=== PATIENT | female | born 1945 | race Caucasian/White ===

== ENCOUNTER 2024-11-07 10:27 | Emergency (ER) | payer MEDICARE, OTHER, SELFPAY ==
--- OUTSIDE RECORDS SUMMARY | 2024-11-07 10:30 | XMS_ITS | Clinical Summary ---
Author Organization [facility] Address [address] [place] [id number] Care Team Providers Care Wire Twister Name Role Phone Berenice Garrison CNM Unavailable [phone] No, Physician Primary Care Provider [phone] Allergies Active Allergy Reactions Criticality Noted Date Comments Amitriptyline Dizziness Medium Atorvastatin Muscle pain Medium 09/13/2018 Carvedilol Wheezing Medium Reaction: Asthma, Dextromethorphan Swelling Medium 12/12/2018 Ethanol (Ethyl Alcohol) Swelling Medium 12/12/2018 Fenofibrate Muscle pain Medium 04/05/2015 Nabumetone Shortness of breath High 09/13/2018 Nitroglycerin Swelling Medium Rosuvastatin Muscle pain Medium 09/13/2018 Medications Lactobacillus acidophilus (PROBIOTIC ORAL) Take by mouth Active ergocalciferol (VITAMIN D) 50,000 unit capsule Take 1 capsule by mouth once a week 1 11/29/2018 Active vit C,Q-Xk-xkvud-lut ein-zeaxan 250-90-40-1 mg capsule Take by mouth Active ezetimibe (ZETIA) 10 mg tablet Take 1 tablet (10 mg total) by mouth daily 90 tablet 06/17/2021 Active lisinopriL (PRINIVIL,ZESTRI L) 10 mg tablet Take 1 tablet (10 mg total) by mouth daily 90 tablet 06/17/2021 Active metoprolol XL (TOPROL-XL) 25 mg extended release tablet Take 1 tablet (25 mg total) by mouth daily 30 tablet 11 08/25/2021 Active rosuvastatin (CRESTOR) 5 mg tablet Take 1 tablet (5 mg total) by mouth daily 30 tablet 11 08/25/2021 Active apixaban (ELIQUIS) 5 mg tablet Take 1 tablet (5 mg total) by mouth 2 (two) times a day 180 tablet 1 08/25/2021 Active Active Problems Problem Noted Date Diagnosed Date Pharyngeal spasm 12/22/2016 Gastroesophageal reflux disease 12/22/2016 Hay fever 12/22/2016 Carotid artery disease 09/09/2016 Paresis 04/13/2016 Bruit 03/10/2016 Obesity 03/10/2016 Pain of right lower extremity 07/20/2015 Swelling of right lower extremity 07/17/2015 Diastolic dysfunction 03/13/2015 Hyperlipidemia 03/12/2015 Hypertriglyceridemia 01/19/2015 Vasovagal symptom 01/17/2015 Heart murmur 01/17/2015 Chest pain 01/15/2015 Shortness of breath at rest 01/15/2015 Encounters Date Type Department Care Team Description 10/21/2024 1:07 PM CDT - 10/21/2024 11:59 PM CDT Hospital Encounter [facility] [address] [address] Screening mammogram, encounter for Discharge Disposition: Discharge to home or self care from Last 3 Months Surgical History Surgery Date Site/Laterality Comments HAND SURGERY Hand Repair - (Added by TW Conv) ROBOTIC ASSISTED HYSTERECTOMY Hysterectomy Robotic-Assisted - (Added by TW Conv) [place] DILATION & CURETTAGE DX&/THER NONOBSTETRIC Dilation And Curettage - (Added by TW Conv) TONSILLECTOMY HYSTERECTOMY 04/23/2007 - 04/22/2008 BREAST BIOPSY Left Medical History Medical History Date Comments Personal history of diseases of skin or subcutaneous tissue History of idiopathic urtica penny - (Added by TW Conv) Hyperlipidemia Atrial fibrillation (HCC) Family History Medical History Relation Name Comments Cancer Brother 1 Family history of cancer - (Added by TW Conv) Lung disease Brother 2 Family history of lung disease - (Added by TW Conv) Cancer Father Family history of cancer - (Added by TW Conv) Coronary artery disease Father Fami ly history of coronary artery disease - (Added by TW Conv) Diabetes Father Family history of diabetes mellitus - (Added by TW Conv) Heart failure Father Family history of heart failure - (Added by TW Conv) Hypertension Father Family history of hypertension - (Added by TW Conv) Lung disease Father Family history of lung disease - (Added by TW Conv) Cancer Mother Family history of cancer - (Added by TW Conv) Diabetes Mother Family history of diabetes mellitus - (Added by TW Conv) Stroke Mother Family history of stroke - (Added by TW Conv) Cancer Other 1 Family history of malignant neoplasm - (Added by TW Conv) Heart disease Other 2 Family history of cardiac disorder - (Added by TW Conv) Rheum arthritis Other 3 Family histo ry of rheumatoid arthritis - (Added by TW Conv) COPD Other 4 Family history of chronic obstructive pulmonary disease - (Added by TW Conv) Diabetes Sister 1 Family history of diabetes mellitus - (Added by TW Conv) Hypertension Sister 2 Family history of hypertension - (Added by TW Conv) Lung disease Sister 3 Family history of lung disease - (Added by TW Conv) Relation Name Status Comments Brother 1 Brother 2 Father Mother Other 1 Other 2 Other 3 Other 4 Sister 1 Sister 2 Sister 3 Social History Tobacco Use Types Packs/Day Years Used Date Smoking Tobacco: Never Smokeless Tobacco: Never Alcohol Use Standard Drinks/Week Comments Not Currently 0 (1 standard drink = 0.6 oz pur e alcohol) Comments No Sex and Gender Information Value Date Recorded Sex Assigned at Not on file Legal Sex Female 4:12 AM PA[employer] Gender Identity Not on file Sexual Orientation Not on file Obstetrics History Para Term AB IAB SAB Ectopic Multiple Livin g Live Births 2 2 2 Date Outcome GA Total Labor Labor/2nd/3rd Weight Sex Type Anes PTL Marie A1 A5 Name Clin Term Term Last Filed Vital Signs Vital Sign Reading Time Taken Comments Blood Pressure 124/72 08/25/2021 1:08 PM CDT Pulse 75 08/25/2021 1:08 PM CDT Temperature 36.4 C (97.5 F) 12/04/2018 11:32 AM CDT Respiratory Rate - - Oxygen Saturation 97% 08/25/2021 1:08 PM CDT Inhaled Oxygen Concentration - - Weight 78 kg (172 lb) 10/21/2024 1:09 PM CDT Height 162.6 cm (5' 4) 10/21/2024 1:09 PM CDT Body Mass Index 29.52 10/21/2024 1:09 PM CDT Plan of Treatment Health Maintenance Due Date Last Done Comments Depression Screening 1945 Fall Risk Assessment 1945 Hepatitis C Screening 1945 Hepatitis B Screening 1965 Zoster Vaccine (1 of 2) 1997 Pneumococcal vaccine 65+ (2 of 2 - PCV) 04/27/2011 04/27/2010 Well Visit 65+ 2012 Osteoporosis Screening-Bone Density Scan 08/31/2023 08/30/2021, 11/11/2015, 04/30/2012 Covid-19 Vaccine (7 - 2023-2 5 season) 2023 04/25/2022, 10/17/2021, 09/21/2021, Additional history exists Influenza Vaccine (#1) 2024 , 01/16/2021, 01/29/2020 DTaP/Tdap/Td Vaccine (4 - Td or Tdap) 12/25/2027 12/24/2017, 12/24/2017, 05/07/2006 Breast Cancer Screening-Mammogram Discontinued 10/21/2024, 07/03/2023, 05/10/2022, Additional history exists Procedures Procedure Name Priority Date/Time Associated Diagnosis Comments SCREENING MAMMOGRAM BILATERAL W SAMUEL Schedule Routine, Read Routine (OP Routine) 10/21/2024 1:28 PM CDT Screening mammogram, encounter for DEXA AXIAL SKELETON BONE DENSITY 1 OR MORE SITES Schedule Routine, Read Routine (OP Routine) 08/30/2021 9:39 AM CDT Encounter for screening for osteoporosis from Last 3 Months or Most Recently Relevant to Health Maintenance Results * Screening Mammogram Bilateral W Samuel (10/21/2024 1:28 PM CDT) Anatomical Region Laterality Modality Breast Bilateral Mammography Impressions 10/21/2024 1:51 PM CDT Bilateral No evidence of malignancy in either breast. OVERALL BI-RADS FINAL ASSESSMENT: 2 - Benign RECOMMENDATION: Recommend bilateral annual screening mammography. Narrative 10/21/2024 1:51 PM CDT EXAMINATION: Screening Mammogram Bilateral W Samuel: 10/21/2024 COMPARISON: Relevent prior studies available at the time of interpretation were reviewed, including the most recent mammogram on: 07/03/2023, 05/10/2022, 01/31/2021, and 11/26/2019. TECHNIQUE: Mammography was performed with 2D and digital breast tomosynthesis (DBT) images. CAD was utilized. BREAST PARENCHYMAL COMPOSITION: There are scattered areas of fibroglandular density. FINDINGS: Multiple small benign appearing masses and benign appearing calcifications in both breasts have not suspiciously changed. There is a biopsy marker clip in the left breast. There is no new suspicious finding in either breast on mammogram. us Self Screening Mammogram IMG MAMMO PROCEDURES Fi nal Result * Dexa Axial Skeleton Bone Density 1 or 2 Site (08/30/2021 9:39 AM CDT) Anatomical Region Laterality Modality Body N/A Mammography 09/01/2021 5:40 AM CDT Narrative 09/01/2021 5:41 AM CDT EXAM DESCRIPTION: DEXA AXIAL SKELETON BONE DENSITY 1 OR MORE SITES REASON FOR STUDY: 76 y/o year old F with given history of screening. Postmenopausal Recorder Helper Gravity Prospecting/Model: Emotive A (S/N [id number]) CLINICAL INFORMATION: Current height: 63.5 inches Maximum height: 65 inches Weight: 172 pounds Risk factors: Cancer, postmenopausal COMPARISON: 11/11/2015, 04/30/2012, 04/27/2010. FINDINGS: AP LUMBAR SPINE L1-L4: Total BMD is 0.760 g/cm2 T-score is -2.6 Dissimilar scan types or analysis methods precludes assessment for calculating a significant change. LEFT HIP: Total BMD is 0.775 g/cm2 T-score is -1.4 Dissimilar scan types or analysis methods precludes assessment for calculating a significant change. Femoral neck BMD is 0.596 g/cm2 T-score is -2.3 IMPRESSION: Based on the lumbar spine bone mineral density (T-score -2.6) the patient has osteoporosis. REFERENCE: Bone mineral density: Normal (T-score above or = -1.0) Low bone mass (T-score between -1.0 and -2.5) replaces the previously used term osteopenia Osteoporosis (T-score = or below -2.5) Medical evaluation for secondary causes of low bone mineral density may be appropriate. FRAX is a World Health Organization validated fracture risk assessment tool that calculates a person's 10 year probability of a major osteoporosis related fracture and hip fracture. According to the National Osteoporosis Foundation guidelines, postmenopausal women and men age 50 or older with low bone mass and a 10 year probability of a major osteoporosis related fracture = or greater than 20% or a 10 year probability of a hip fracture = or greater than 3% should be considered for treatment. For further information, including treatment recommendations, please refer to the 2013 ISCD Official Positions (http://www.iscd.org) and the NOF's Clinician's Guide to Prevention and Treatment of Osteoporosis (http://www.nof.org/professionals/clinical-guidelines) THIS IS AN ELECTRONICALLY VERIFIED FINAL REPORT 09/01/2021 5:41 AM - Electronically signed by Cali Benavides M.D. MF: [email or web address] Report ID: [id number] Reading Location: [place] [address] Procedure Note Cali Benavides MD - 09/01/2021 EXAM DESCRIPTION: DEXA AXIAL SKELETON BONE DENSITY 1 OR MORE SITES REASON FOR STUDY: 76 y/o year old F with given history ofscreening. Postmenopausal Recorder Helper Gravity Prospecting/Model: Hologic Horizon A (S/N [id number]) CLINICAL INFORMATION: Current height: 63.5 inches Maximum height: 65 inches Weight: 172 pounds Risk factors: Cancer, postmenopausal COMPARISON: 11/11/2015, 04/30/2012, 04/27/2010. FINDINGS: AP LUMBAR SPINE L1-L4: Total BMD is 0.760 g/cm2 T-score is -2.6 Dissimilar scan types or analysis methods precludes assessment for calculating a significant change. LEFT HIP: Total BMD is 0.775 g/cm2 T-score is -1.4 Dissimilar scan types or analysis methods precludes assessment forcalculating a significant change. Femoral neck BMD is 0.596 g/cm2 T-score is -2.3 IMPRESSION: Based on the lumbar spine bone mineral density (T-score-2.6) the patient has osteoporosis. REFERENCE: Bone mineral density: Normal (T-score above or = -1.0) Low bone mass (T-score between -1.0 and -2.5) replaces thepreviously used term osteopenia Osteoporosis (T-score = or below -2.5) Medical evaluation for secondary causes of low bone mineral density may be appropriate. FRAX is a World Health Organization validated fracture risk assessmenttool that calculates a person's 10 year probability of a major osteoporosisrelated fracture and hip fracture. According to the National OsteoporosisFoundation guidelines, postmenopausal women and men age 50 or older with low bonemass and a 10 year probability of a major osteoporosis related fracture = or greater than 20% or a 10 year probability of a hip fracture = or greaterthan 3% should be considered for treatment. For further information, including treatment recommendations, please referto the 2013 ISCD Official Positions (http://www.iscd.org) and the NOF's Clinician's Guide to Prevention and Treatment of Osteoporosis (http://www.nof.org/professionals/clinical-guidelines) THIS IS AN ELECTRONICALLY VERIFIED FINAL REPORT 09/01/2021 5:41 AM - Electronically signed by Cali Benavides M.D. MF: [id number] Report ID: [id number] Reading Location: [place] [address] Berenice Acosta CNM IM DXA PROCEDURES F inal Result from Last 3 Months or Most Recently Relevant to Health Maintenance Insurance MEDICARE [facility] MEDICARE [facility] CHOICE PLUS [facility] HMO/PPO Address: [address] [address] [place] [address] MEDICARE [facility] Care Teams Wire Twister Relationship Specialty Start Date End Date No, Physician PCP - General 05/01/22 Berenice Garrison, CNM Inventory Representative Obstetrics and Gynecology 08/24/21
--- OUTSIDE RECORDS SUMMARY | 2024-11-07 10:30 | XMS_ITS | Encounter Summary ---
Author Organization [facility] Address [address] [place] [id number] Care Team Providers Care Assistant Tennis Professional Name Role Phone Gaby Locke MD Primary Care Provider + Reason for Visit * Reason Onset Date Comments Rash 10/30/2024 Encounter Details Date Type Department Care Team (Latest Contact Info) Description 10/30/2024 Amperion Message Enc [facility] Family Medicine - [place] [address] [place] [phone] Gaby Locke MD [address] [place] [phone] Need steroid prescription Social History Tobacco Use Types Packs/Day Years Used Date Smoking Tobacco: Never Passive Smoke Exposure: Never Smokeless Tobacco: Never Comments:na Alcohol Use Standard Drinks/Week Comments Not Currently 0 (1 standard drink = 0.6 oz pur e alcohol) PHQ-2 Answer Date Recorded Patient Health Questionnaire-2 Score 0 05/19/2024 Comments No Sex and Gender Information Value Date Recorded Sex Assigned at Female 10/21/2024 6:40 AM CDT Legal Sex Female 4:05 PM CDT Gender Identity Female 10/29/2024 12:14 PM CDT Sexual Orientation Not on file documented as of this encounter Progress Notes * Gaby Locke MD - 10/30/2024 12:07 PM CDT Please let her know I've sent in prednisone for 5 day burst for her. Thanks! * Renu Kimani Acosta - 10/30/2024 8:12 AM CDT Deepa called this morning checking on this. She's asking if you need to see her or if you can send in a steroid. documented in this encounter Plan of Treatment Upcoming Encounters Date Type Department Care Team (Late st Contact Info) Description 02/09/2025 7:50 AM CDT Office Visit [facility] Family Medicine - [place] [address] [place], [place] [id number] Gaby Locke MD [address] [place] [address] 04/30/2025 3:00 PM [employer] Hospital Encounter [facility] [place] [address] Jamel Mendoza MD [address] [facility] [address] [place] [address] 04/30/2025 3:00 PM [employer] - 04/30/2025 3:30 PM [employer] Surgery [facility] Endo/GI [facility] [place] [address] Jamel Mendoza MD [address] 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
--- OUTSIDE RECORDS SUMMARY | 2024-11-07 10:30 | XMS_ITS | Clinical Summary ---
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 Started at the same time as Valtrex Nabumetone Shortness of Breath High 07/08/2013 Naproxen Unknown 03/31/2019 Nitroglycerin Swelling Medium 01/10/2012 Valacyclovir Rash Medium 11/05/2024 Medication started at the same time as gabapentin. Xipamide Unknown 10/28/2015 Medications Multiple Vitamins-Minerals (PRESERVISION AREDS 2) Cap Active Coenzyme Q10 (CO Q10) 200 MG Cap Take 200 mg by mouth daily. Active Lutein 20 MG Cap Take by mouth daily with breakfast. Active aspirin 81 MG chewable tablet Chew 1 tablet (81 mg total) by mouth daily. Active ibuprofen (MOTRIN) 200 MG tablet Take 1 tablet (200 mg total) by mouth every 6 (six) hours as needed for Pain. Active conjugated estrogens (PREMARIN) 0.625 MG/GM vaginal creamIndications: Atrophic vaginitis Place 0.5 g vaginally 3 (three) times a week. 30 g 3 024 Active ezetimibe (ZETIA) 10 MG tabletIndications :Mixed hyperlipidemia Take 1 tablet (10 mg total) by mouth daily. 90 tablet 3 024 2024 Active metoprolol succinate ER (TOPROL-XL) 50 MG 24 hr tabletIndications :Essential hypertension Take 0.5 tablets (25 mg total) by mouth daily. 45 tablet 3 Active albuterol sulfate HFA 108 (90 Base) MCG/ACT inhalerIndication s:Wheezing Inhale 2 puffs into the lungs see administration instructions. Inhale 2 puffs every 4-6 hours by inhalation route as needed. 18 g 1 Active glipiZIDE XL 5 MG 24 hr tabletIndications :Type 2 diabetes mellitus without complication, without long-term current use of insulin (CMS/HCC HHS/HCC) Take 1 tablet (5 mg total) by mouth daily with breakfast. Do not break or crush tablet 90 tablet 1 025 2024 Active rosuvastatin (CRESTOR) 10 MG tabletIndications :Mixed hyperlipidemia Take 1 tablet (10 mg total) by mouth nightly at bedtime. 90 tablet 3 025 2025 Active omeprazole (PRILOSEC) 20 MG capsuleIndication s:Chao's esophagus with dysplasia Take 1 capsule (20 mg total) by mouth daily. 90 capsule 3 025 2025 Active budesonide-glycop yrrolate-formoter ol (BREZTRI) 160-9-4.8 MCG/ACT inhalerIndication s:Mild intermittent asthma without complication ([facility]) Inhale 2 puffs into the lungs 2 (two) times daily. 10.7 g 3 Active lisinopril (PRINIVIL) 10 MG tablet Take 1 tablet (10 mg total) by mouth daily. Active hydrOXYzine (ATARAX) 25 MG tabletIndications :Pruritic rash Take 1 tablet (25 mg total) by mouth 2 (two) times daily as needed for Itching. 30 tablet Active predniSONE (DELTASONE) 20 MG tabletIndications :Pruritic rash Take 2 tablets (40 mg total) by mouth daily for 5 days. 10 tablet 025 2024 Active azithromycin (ZITHROMAX Z-JAMAL) 250 MG tabletIndications :Bronchitis Take 2 tablets by mouth on day one then 1 daily for four days. 6 tablet 025 2024 Discontinued valACYclovir (VALTREX) 1 g tabletIndications :Herpes zoster without complication Take 1 tablet (1,000 mg total) by mouth 3 (three) times daily for 7 days. 21 tablet 025 2024 Discontinued gabapentin (NEURONTIN) 100 MG capsuleIndication s:Herpes zoster without complication Take 1 capsule (100 mg total) by mouth 3 (three) times daily. 30 capsule 025 2024 Discontinued predniSONE (DELTASONE) 20 MG tabletIndications :Poison heidy Take 2 tablets (40 mg total) by mouth daily for 5 days. 10 tablet 025 2024 Hospital, Clinic, or Other Facility Administered Medication Ordered Dose Route Frequency Start Date End Date Status triamcinolone acetonide (KENALOG-40) injection 40 mgIndications:Pruritic rash 40 mg IM Once 11/05/2024 11/06/19 25 Ended Active Problems Problem Noted Date Diagnosed Date Dysphagia, unspecified type 10/16/2024 Chao's esophagus without dysplasia 10/16/2024 Chao's esophagus with dysplasia 08/07/2024 Overview (08/07/2024): EGD 3 months ago. Recommend [address] Dominguez. Mild intermittent asthma without complication (H HS/HCC) 08/07/2024 Overview (08/07/2024): When she is ill she seems consistently to have wheezing and shortness of breath. No previous PFTs yet to confirm. She has been taking Advair and albuterol when ill. She continues to note some tightness. Assessment & Plan (08/07/2024 8:32 AM CDT): Not controlled today. Will trial Breztri if covered by insurance along with continued albuterol. Acute bacterial sinusitis today. Will treat with Augmentin. Adenomatous polyp of colon 10/18/2023 Peripheral vascular disease 10/18/2023 Overview (02/07/2024): Sees Dr. Brennan. Had an USN. Noninvasive vascular testing was consistent with moderate arterial insufficiency of the left lower extremity. Walking regularly to manage symptoms. Assessment & Plan (02/07/2024 10:15 AM CDT): Stable and managed by Dr. Brennan through lifestyle changes. Paroxysmal atrial fibrillation ([facility]/HCC [facility]/HCC) 10/02/2022 Overview (02/07/2024): Paroxysmal. Occurred in context of 's illness. Rate controlled with metoprolol. Was on eliquis but had severe GI bleeding in 2019 and opted against further anticoagulation. Has historically otherwise been in sinus rhythm. Assessment & Plan (02/07/2024 10:14 AM CDT): Patient has acknowledged risks of anticoagulation and prefers not to take it. She is also aware of stroke risk. Continue rate control with metoprolol. Vitamin D deficiency 10/10/2021 Overview (02/07/2024): Intermittently she will take a supplement but she is not certain how her dosing has been. Assessment & Plan (02/07/2024 10:14 AM CDT): Repeat vitamin D level to confirm whether this is in range. Essential hypertension 09/07/2021 Overview (08/07/2024): Readings at home are much better than in the clinic. She does note some increased stress recently. She does struggle with whitecoat hypertension. Patient takes lisinopril 10 mg daily along with metoprolol extended release 25 mg daily. Assessment & Plan (08/07/2024 8:30 AM CDT): Chronic and controlled. Continue lisinopril and metoprolol. Assessment & Plan (02/07/2024 10:15 AM CDT): Readings at home are controlled. Continue current regimen lisinopril and metoprolol. Diverticulosis of colon 03/08/2021 Atrophic vaginitis 03/30/2019 Overview (10/18/2023): Postmenopausal atrophic vaginitis; Progress: Stable Added By: Mayela Simpson Add to Current Problems: YES ProblemStatus: Current Carotid artery disease 09/09/2016 Overview (02/07/2024): Summary: 1. Mild atherosclerosis in the right and left internal carotid arteries (<50% stenosis). 2. Mild atherosclerosis in the right and left carotid artery bulbs (<50% stenosis). 3. Mild atherosclerosis in the right and left external carotid arteries (<50% stenosis). 4. No evidence of significant atherosclerosis in the right and left common carotid arteries. 5. Normal antegrade flow in the right and left vertebral arteries. Assessment & Plan (02/07/2024 10:15 AM CDT): Mild disease. Stable. Follows with cardiology. Obesity 03/10/2016 Diastolic dysfunction 03/13/2015 Overview (02/07/2024): Sees cardiologyCara. Echo scheduled in 04/2024. Mixed hyperlipidemia 03/12/2015 Overview (08/07/2024): Patient takes ezetimibe along with rosuvastatin. Has struggled with myalgias in the past but the coenzyme every 10 has helped. Assessment & Plan (08/07/2024 8:31 AM CDT): Not controlled. Will trial slightly higher dose rosuvastatin 10 mg daily along with ezetimibe. She will let me know if she experiences myalgias and we will reduce back to 5 mg daily. Repeat lipid panel next visit. Assessment & Plan (02/07/2024 10:15 AM CDT): Ordered CMP and lipid panel to evaluate control. Patient acknowledges readings have typically remained high but prefers to remain on low-dose medication. Heart murmur 01/17/2015 Type 2 diabetes mellitus wit hout complication, without long-term current use of insulin ([facility]) 03/25/2012 Overview (08/07/2024): Last A1c in 01/2024 was 6.7%. Now 7%. She has noted some significant stressors and wondered if her blood sugars to be higher. Patient takes glipizide. Farxiga was too expensive. Eye exam is at [facility] annually. Assessment & Plan (08/07/2024 8:30 AM CDT): Remains controlled but there is a slight increase in A1c. We will increase her glipizide since she had to discontinue Farxiga due to cost. Increase glipizide to 5 mg daily. Foot exam today. Assessment & Plan (02/07/2024 10:13 AM CDT): Controlled. Goal less than 7-8%. Continue glipizide and Farxiga. Repeat A1c in 6 months. Ordered urine microalbumin. Allergic rhinitis due to pollen 03/24/2012 Overview (10/18/2023): Location: None;Severity: Moderate;Progress: Stable;Added By: Karina Heard;Add to Current Problems: NO Other supervisor intermediates (current) drug therapy 2 Resolved Problems Problem Noted Date Diagnosed Date Resolved Date Wrist joint pain 01/10/2012 02/07/2024 Overview (10/18/2023): Location: None;Severity: Moderate;Progress: Stable;Added By: Kristin Mcneil;Add to Current Problems: NO Encounters Date Type Department Care Team Description 11/07/[address] [place] [address] Gaby Allan MD Eye Problem 11/05/2024 3:00 PM CDT Office Visit [facility] [address] [place] [address] Yuki Wilburn NP Rash (Patient presents with rash all over, her body feels on fire, under left eye swelling) 11/05/2024 Travel 10/30/2024 MyChart Message Enc [facility] [address] [facility] [address] [place] [address] Gaby Allan MD Need steroid prescription 10/29/2024 12:20 PM CDT Office Visit [facility] [address] [place] [address] Yuki Wilburn NP Rash (Patient presents with c/o rash on face, burning and itching x yesterday) 10/29/2024 Travel 10/23/2024 9:00 AM CDT Office Visit [facility] [address] [place] [address] Caron Ordaz MD Follow Up (Annual ) 10/23/2024 Travel 10/23/2024 Results Follow-Up [facility], [facility] [address] [place] [address] Mitali Phelps RN USE ECHOCARDIOGRAM 10/21/2024 6:41 AM CDT - 10/21/2024 11:59 PM CDT Hospital Encounter [facility] [place] [address] Caron Ordaz MD Discharge Disposition: Home or Self Care (Routine Discharge) 10/21/2024 Scan [employer] HEALTH INFO SRVCS Scanned, [facility] Mammogram (SCAN) 10/21/2024 Travel 10/16/2024 10:00 AM CDT Office Visit [facility] [address] [facility], [address] [place] [address] Gaby Allan MD Barnes, Lawrence J, NOL[place] Kumar (W/ dysplasia) 10/16/2024 Scan [facility] HEALTH INFO SRVCS Scanned, [facility] 10/16/2024 Orders Only [facility] [address] [facility] [place] [address] Jamel Mendoza MD 10/16/2024 Travel 10/07/2024 Results Follow-Up [facility] [address] [place] [address] Gaby Allan MD XR ABD KUB 10/03/2024 9:50 AM CDT Office Visit [facility] [address] [place] [address] Gaby Allan MD Lump (Patient c/o a knot under her L sided ribcage x 3-4 months. Patient states it has become more bothersome in the last week and it has become more noticeable when she is sitting. ) 10/03/2024 Travel from Last 3 Months Immunizations Immunization Administration Dates Next Due COVID-19 Vaccine (Generic) 09/21/2021 Fluzone High Dose - >Age 65 (Prefilled Syringe) 01/16/2021 Hepatitis A (Generic) 05/07/2006 Hepatitis A (Havrix 1440 El.U) 05/07/2006 Influenza Adult (Generic) 01/18/2021,01/29/2020 MODERNA COVID-19 (12+) MRNA, LNP-S, PF, 100 MCG/ 0.5 ML DOSE 02/20/2021,06/18/2020,05/20/2020 MODERNA COVID-19 (REFUGE WORKER KAMALA MISAEL), MRNA, LNP-S, PF, 50 MCG/ 0.25 ML DOSE 10/17/2021 Pneumococcal (Pneumovax 23) 04/27/2010 Pneumococcal (Prevnar 20) 05/19/2024 Tdap (Generic) 12/24/2017,05/07/2006 Typhoid (Typhim ) 05/07/2006 Typhoid Vi Polysaccharide Va cc 25 Mcg/0.5Ml Im Soln 05/07/2006 Family History Medical History Relation Comments Cancer Brother 1 Cancer Brother 2 Hyperlipidemia Brother 3 Lung Cancer Brother 4 COPD Father Cancer Father Diabetes Father Heart Attack Father Heart Disease Father Hyperlipidemia Father Hypertension Father Stent Cardiac Father Heart Disease Maternal Grandfather Heart Disease Maternal Grandmother Brain Aneurysm Mother Cancer Mother Diabetes Mother Heart Disease Mother Hyperlipidemia Mother Hypertension Mother arrhythmia Mother Cancer Paternal Grandfather Cancer Paternal Grandmother COPD Sister 1 Mitral valve prolapse Sister 1 Stroke Sister 1 Diabetes Sister 2 Hyperlipidemia Sister 2 Hypertension Sister 2 Mitral valve prolapse Sister 2 Diabetes Sister 3 Mitral valve prolapse Sister 3 Stroke Sister 3 Relation Status Comments Brother 1 (Age 46) Brother 2 Alive Brother 3 Alive Brother 4 Alive Father (Age 77) Maternal Grandfather (Age 60) Maternal Grandmother (Age 76) Mother (Age 85) Paternal Grandfather (Age 66) Paternal Grandmother (Age 75) Sister 1 Alive Sister 2 Alive Sister 3 Alive Social History Tobacco Use Types Packs/Day Years Used Date Smoking Tobacco: Never Passive Smoke Exposure: Never Smokeless Tobacco: Never Tobacco Cessation:Counseling Given: No Comments:na Alcohol Use Standard Drinks/Week Comments Not Currently 0 (1 standard drink = 0.6 oz pur e alcohol) PHQ-2 Answer Date Recorded Patient Health Questionnaire-2 Score 0 05/19/2024 Comments No Sex and Gender Information Value Date Recorded Sex Assigned at Female 10/21/2024 6:40 AM CDT Legal Sex Female 4:05 PM CDT Gender Identity Female 10/29/2024 12:14 PM CDT Sexual Orientation Not on file Last Filed Vital Signs Vital Sign Reading Time Taken Comments Blood Pressure 130/70 11/05/2024 3:22 PM CDT Pulse 76 11/05/2024 2:54 PM CDT Temperature 36.7 C (98.1 F) 11/05/2024 2:54 PM CDT Respiratory Rate 20 11/05/2024 2:54 PM CDT Oxygen Saturation 97% 11/05/2024 2:54 PM CDT Inhaled Oxygen Concentration - - Weight 79.4 kg (175 lb) 11/05/2024 2:54 PM CDT Height 162.6 cm (5' 4) 11/05/2024 2:54 PM CDT Body Mass Index 30.04 11/05/2024 2:54 PM CDT Plan of Treatment Upcoming Encounters Date Type Department Care Team (Late st Contact Info) Description 02/09/2025 7:50 AM CDT Office Visit [facility] [place] [address] [place] [address] Gaby Allan MD [address] [place] [address] 04/30/2025 3:00 PM AIRLINE RESERVATION AGENT Hospital Encounter [facility] One Day Services [address] [facility] [place] [address] Jamel Mendoza MD [address] [facility] [address] [place] [address] 04/30/2025 3:00 PM AIRLINE RESERVATION AGENT - 04/30/2025 3:30 PM AIRLINE RESERVATION AGENT Surgery [facility] Endo/GI [facility] [place] [address] Jamel Mendoza MD [address] [facility] [address] [place] [address] EGD 10/26/2025 9:45 AM CDT Office Visit [facility] [place] [address] Caron Ordaz MD [address] [facility] [address] [place] [address] Scheduled Procedures Name Priority Associated Diagnoses Date/Ti me EGD Dysphagia, unspecified type Chao's esophagus without dysplasia 04/30/2025 3:00 PM AIRLINE RESERVATION AGENT Health Maintenance Due Date Last Done Comments Hepatitis C 1965 Zoster Vaccines (1 of 2) 1997 Annual Medicare Wellness Visit 2012 RSV Immunization or 60+ Years (1 - 1-dose 75+ series) 2022 COVID-19 Vaccine ( season) 2023 04/25/2022, 10/17/2021, 09/21/2021, Additional history exists Hemoglobin A1C 02/06/2025 08/07/2024, 01/21, 03/29/2023, Additional history exists Kidney Health Evaluation 03/03/2025 03/03/2024 Lipid Panel 03/03/2025 03/03/2024, 1210/2022, 10/09/2022, Additional history exists Diabetes: Retinopathy Eye Exam 11/04/2025 11/05/2023 EGD-Chao's Surveillance 06/02/2027 06/02/2024 DTaP, Tdap and Td Vaccines (3 - Td or Tdap) 12/25/2027 12/24/2017, 05/07/2006 Dexa Scan (General) Completed 08/30/2021, 08/30/2021, 11/11/2015, Additional history exists PHQ-2 (Physician [place]) Completed 05/19/2024 Pneumococcal Vaccine: 50+ Years Completed 05/19/2024, 04/27/2010 Meningococcal B Vaccine Aged Out No l onger eligible based on patient's age to complete this topic Meningococcal Vaccine Aged Out No herman kelyl eligible based on patient's age to complete this topic RSV Immunizations Under 20 Months Aged Out No longer eligible based on patient's age to complete this topic Goals Goal Patient Goal Type Associated Problems Recent Progress Patient-Stated? Author Autogenera joshua Goal Care Plan Autogenerated Problem No Rosalind Howell, [facility] [place] [facility] [place] Procedures Procedure Name Priority Date/Time Associated Diagnosis Comments USE ECHOCARDIOGRAM Routine 10/21/2024 7: 19 AM CDT Non-rheumatic mitral regurgitation MAMMOGRAM GENERIC (SCAN ORDER) 10/21/2024 XR ABD KUB Routine 10/03/2024 10:22 AM CDT Fullness of abdomen HEMOGLOBIN, GLYCOSYLATED Today 08/07/2024 Type 2 diabetes mellitus without complication, without long-term current use of insulin ([facility]/HCC [facility]/HCC) EGD GENERIC (SCAN ORDER) 06/02/2024 LIPID PANEL Today 03/03/2024 10:35 AM AIRLINE RESERVATION AGENT Mixed hyperlipidemia DIABETIC RETINOPATHY EXAM (NEGATIVE)(SCAN ORDER) Routine 11/05/2023 12:00 AM CDT from Last 3 Months or Most Recently Relevant to Health Maintenance Results * USE ECHOCARDIOGRAM (10/21/2024 7:19 AM CDT) Anatomical Region Laterality Modality Cardiac Echocardiogram 10/21/2024 6:58 AM CDT Narrative 10/22/2024 4:50 PM CDT Echocardiography Report Pat.Name: DEEPA BORREGO.ID: [id number] St.Date: 10/21/2024 Exam Time: 6:58:00 AM Study Type:ECHO WITH CARDIAC DOPPLER COMP Height: 64 in Weight: 178 lb BSA: 1.86 m2 Age: 11 1945,79Y Sex: F BP: 142/76 Sonogrphr: Rocio Sandoval Pat. Stat.:Outpatient CPT - 4: [id number] Reason for Study:Mitral regurgitation Procedures: 2D, M-mode, Doppler, Color Flow, The study quality is technically difficult. Race: W ++++++++++++++++++++++++++++++++++++ SUMMARY: ++++++++++++++++++++++++++++++++++++ The left ventricular size is normal. Estimated left ventricular ejection fraction is 65-70%. Mild concentric left ventricular hypertrophy. Left ventricular diastolic function is not reliably assessed. The right ventricular size is normal. Right ventricular systolic function is normal. The left atrial volume is normal ( less than 34 ml/M2). The right atrial size is normal. Trace mitral regurgitation. A trace of tricuspid regurgitation. ++++++++++++++++++++++++++++++++++++ FINDINGS: ++++++++++++++++++++++++++++++++++++ LV: The left ventricular size is normal. The left ventricular systolic function is normal. Estimated left ventricular ejection fraction is 65-70%. Mild concentric left ventricular hypertrophy. Left ventricular diastolic function is not reliably assessed. RV: The right ventricular size is normal. Right ventricular systolic function is normal. IVS: Intraventricular septum is normal. LA: The left atrial volume is normal ( less than 34 ml/M2). RA: The right atrial size is normal. IAS: Atrial septum is normal. ANISH: Trivial anterior pericardial effusion is noted. AO: Normal aortic root. PA: Estimated right atrial pressure of 3 mmHg. SVn: Inferior vena cava is normal. Inferior vena cava shows >50% collapse with respiration consistent with normal right atrial pressure. AV: No evidence of aortic valve stenosis. No evidence of aortic valve regurgitation. The aortic valve not well visualized. MV: Trace mitral regurgitation. No evidence of mitral stenosis. PV: Pulmonic valve not well visualized. TV: A trace of tricuspid regurgitation. No evidence of tricuspid valve stenosis. ++++++++++++++++++++++++++++++++++++ MEASUREMENTS: ++++++++++++++++++++++++++++++++++++ DOPPLER Pulmonary Veins PVnpkVeld 36 cm/s Pulmonary Vein 0.61 m/s PVnVs/Vd 1.68 AR-wave velocit 0.33 m/s S1-wave velocit 0.57 m/s PVn A Dur 0.087 second TV Forward Flow TV E/A 0.87 Aortic Valve Cardiovascular 1.97 cm Aortic Root Darren 2.97 cm LVOT/AoV (GLOBAL CEO) ( 0.47 Left atrial darren 4.09 cm AV Antegrade Flow Peak Velocity ( 1.64 m/s Mean Velocity ( 1.13 m/s Velocity Time I 38.1 cm AV Antegrade Flow Simplified Bernoulli Gradient pressu 10.8 mmHg Gradient pressu 5.6 mmHg AV Continuity Equation by Velocity Time Integral Aortic Valve Ar 1.68 cm2 AoV Area Index 0.9 Left Ventricle Stroke Volume ( 64 ml Cardiac Output 4.03 liter per minute LV Antegrade Flow Peak Velocity ( 0.77 m/s Mean Velocity ( 0.59 m/s Velocity Time I 21 cm LV Antegrade Flow Simplified Bernoulli Gradient pressu 2.4 mmHg Gradient pressu 1.5 mmHg Mitral Valve Mitral Valve E- 0.233 second Mean Myocardial 6.9 centimeter/second Myocardial Velo 6.7 centimeter/second Ratio of Mitral 12.7 Myocardial Velo 7 centimeter/second Ratio of Mitral 13.1 Mitral Valve E 0.72 Ratio of Mitral 12.6 MV Antegrade Flow Mitral Valve E- 0.88 m/s Mitral Valve A- 1.23 m/s PV Antegrade Flow Peak Velocity ( 1.24 m/s Mean Velocity ( 0.84 m/s Velocity Time I 27.6 cm PV Antegrade Flow Simplified Bernoulli Gradient pressu 6.2 mmHg Gradient pressu 3.1 mmHg Tricuspid Valve Tricuspid Valve 0.47 m/s Tricuspid Valve 0.54 m/s TV Regurgitant Flow MaximumTricuspi 1.49 m/s MaximumTricuspi 8.9 mmHg 2D Left Ventricle LVIDd 4.45 cm (3.6-5.2) LVEDV BP 48.2 ml LV EDV 51.3 ml LVESV BP 13.8 ml LV ESV 9.1 ml LV EF 82.3 % LV EDV 39.6 ml Left Ventricula -16.3 % LV ESV 20.2 ml LV EF 49 % LV EF BP 71.4 % Left Ventricula -10.3 % Left Ventricula -13.3 % Left Atrium Left Atrium Vol 27.6 ml/m2 LA Biplane Left Atrium Vol 51.4 ml LA Single Plane Left Atrium maury 6.33 cm Left Atrium maury 5.69 cm Left Atrium Vol 72.5 ml Left Atrium Vol 33.3 ml LV Teichholz Interventricula 1.22 cm Left Ventricle 2.44 cm Left Ventricle 1.16 cm Heart rate 65 Heart beat per minute Right Atrium RA sys Area 14.5 cm2 Right Ventricle Right Ventricul 2.85 cm RVIDd 4.07 cm MMODE Tricuspid Valve Tricuspid annul 1.97 cm <Electronic Signature> 10/22/2024 04:50 PM Caron Ordaz M.D. Procedure Note Caron Ordaz MD - 10/22/2024 Echocardiography Report Pat.Name: DEEPA BORREGO.ID: [id number] .Date: 10/21/2024 Exam Time: 6:58:00 AM Study Type:ECHO WITH CARDIAC DOPPLER COMP Height: 64 in Weight: 178 lb BSA: 1.86 m2 Age: 11 1945,79Y Sex: F BP: 142/76 Sonogrphr: Rocio Sandoval. Stat.:Outpatient CPT - 4: [id number] Reason for Study:Mitral regurgitation Procedures: 2D, M-mode, Doppler, Color Flow, The study quality is technically difficult. Race: W ++++++++++++++++++++++++++++++++++++ SUMMARY: ++++++++++++++++++++++++++++++++++++ The left ventricular size is normal. Estimated left ventricular ejection fraction is 65-70%. Mild concentric left ventricular hypertrophy. Left ventricular diastolic function is not reliably assessed. The right ventricular size is normal. Right ventricular systolic function is normal. The left atrial volume is normal ( less than 34 ml/M2). The right atrial size is normal. Trace mitral regurgitation. A trace of tricuspid regurgitation. ++++++++++++++++++++++++++++++++++++ FINDINGS: ++++++++++++++++++++++++++++++++++++ LV: The left ventricular size is normal. The left ventricular systolic function is normal. Estimated left ventricular ejection fraction is 65-70%. Mild concentric left ventricular hypertrophy. Left ventricular diastolic function is not reliably assessed. RV: The right ventricular size is normal. Right ventricular systolic function is normal. IVS: Intraventricular septum is normal. LA: The left atrial volume is normal ( less than 34 ml/M2). RA: The right atrial size is normal. IAS: Atrial septum is normal. ANISH: Trivial anterior pericardial effusion is noted. AO: Normal aortic root. PA: Estimated right atrial pressure of 3 mmHg. SVn: Inferior vena cava is normal. Inferior vena cava shows >50% collapse with respiration consistent with normal right atrial pressure. AV: No evidence of aortic valve stenosis. No evidence of aortic valve regurgitation. The aortic valve not well visualized. MV: Trace mitral regurgitation. No evidence of mitral stenosis. PV: Pulmonic valve not well visualized. TV: A trace of tricuspid regurgitation. No evidence of tricuspid valve stenosis. ++++++++++++++++++++++++++++++++++++ MEASUREMENTS: ++++++++++++++++++++++++++++++++++++ DOPPLER Pulmonary Veins PVnpkVeld 36 cm/s Pulmonary Vein 0.61 m/s PVnVs/Vd 1.68 AR-wave velocit 0.33 m/s S1-wave velocit 0.57 m/s PVn A Dur 0.087 second TV Forward Flow TV E/A 0.87 Aortic Valve Cardiovascular 1.97 cm Aortic Root Darren 2.97 cm LVOT/AoV (GLOBAL CEO) ( 0.47 Left atrial darren 4.09 cm AV Antegrade Flow Peak Velocity ( 1.64 m/s Mean Velocity ( 1.13 m/s Velocity Time I 38.1 cm AV Antegrade Flow Simplified Bernoulli Gradient pressu 10.8 mmHg Gradient pressu 5.6 mmHg AV Continuity Equation by Velocity Time Integral Aortic Valve Ar 1.68 cm2 AoV Area Index 0.9 Left Ventricle Stroke Volume ( 64 ml Cardiac Output 4.03 liter per minute LV Antegrade Flow Peak Velocity ( 0.77 m/s Mean Velocity ( 0.59 m/s Velocity Time I 21 cm LV Antegrade Flow Simplified Bernoulli Gradient pressu 2.4 mmHg Gradient pressu 1.5 mmHg Mitral Valve Mitral Valve E- 0.233 second Mean Myocardial 6.9 centimeter/second Myocardial Velo 6.7 centimeter/second Ratio of Mitral 12.7 Myocardial Velo 7 centimeter/second Ratio of Mitral 13.1 Mitral Valve E 0.72 Ratio of Mitral 12.6 MV Antegrade Flow Mitral Valve E- 0.88 m/s Mitral Valve A- 1.23 m/s PV Antegrade Flow Peak Velocity ( 1.24 m/s Mean Velocity ( 0.84 m/s Velocity Time I 27.6 cm PV Antegrade Flow Simplified Bernoulli Gradient pressu 6.2 mmHg Gradient pressu 3.1 mmHg Tricuspid Valve Tricuspid Valve 0.47 m/s Tricuspid Valve 0.54 m/s TV Regurgitant Flow MaximumTricuspi 1.49 m/s MaximumTricuspi 8.9 mmHg 2D Left Ventricle LVIDd 4.45 cm (3.6-5.2) LVEDV BP 48.2 ml LV EDV 51.3 ml LVESV BP 13.8 ml LV ESV 9.1 ml LV EF 82.3 % LV EDV 39.6 ml Left Ventricula -16.3 % LV ESV 20.2 ml LV EF 49 % LV EF BP 71.4 % Left Ventricula -10.3 % Left Ventricula -13.3 % Left Atrium Left Atrium Vol 27.6 ml/m2 LA Biplane Left Atrium Vol 51.4 ml LA Single Plane Left Atrium maury 6.33 cm Left Atrium maury 5.69 cm Left Atrium Vol 72.5 ml Left Atrium Vol 33.3 ml LV Teichholz Interventricula 1.22 cm Left Ventricle 2.44 cm Left Ventricle 1.16 cm Heart rate 65 Heart beat per minute Right Atrium RA sys Area 14.5 cm2 Right Ventricle Right Ventricul 2.85 cm RVIDd 4.07 cm MMODE Tricuspid Valve Tricuspid annul 1.97 cm <Electronic Signature> 10/22/2024 04:50 PM Caron Ordaz M.D. Caron Ordaz MD ECHO Final Resul t * MAMMOGRAM GENERIC (SCAN ORDER) (10/21/2024) Anatomical Region Laterality Modality Other 10/21/2024 [facility] Scanned SCANNING Final Resu lt * XR ABD KUB (10/03/2024 10:22 AM CDT) Anatomical Region Laterality Modality Abdomen Radiographic Karlie ging 10/06/2024 2:41 PM CDT Impressions 10/06/2024 2:44 PM CDT IMPRESSION: 1. Nonobstructive bowel gas pattern. 2. No radiographic evidence of focal abnormality. Ordered By: GABY ALLAN Interpreted By: Alec Watson MD, 10/06/2024 2:41 PM Narrative 10/06/2024 2:44 PM CDT [facility] [place] [address] Examination: XR ABD KUB Exam time: 10/03/2024 10:22 AM Clinical history: Left upper quadrant fullness/protrusion. Comparison: No prior exam Technique: AP supine view Findings: Nonobstructive bowel gas pattern. No evidence of focal gastric, small bowel, or colonic gaseous distention. Gas is present within nondistended stomach. Gas is present within minimal nondistended small bowel within the midabdomen. Mild amount of mixed gas and stool density projects throughout the expected position of nondistended colon and rectum. No evidence of abnormal soft tissue densities or calcifications throughout the abdomen. Procedure Note Alec Watson MD - 10/06/2024 [place] [address] Examination: XR ABD KUB Exam time: 10/03/2024 10:22 AM Clinical history: Left upper quadrant fullness/protrusion. Comparison: No prior exam Technique: AP supine view Findings: Nonobstructive bowel gas pattern. No evidence of focal gastric,small bowel, or colonic gaseous distention. Gas is present withinnondistended stomach. Gas is present within minimal nondistended smallbowel within the midabdomen. Mild amount of mixed gas and stool densityprojects throughout the expected position of nondistended colon andrectum. No evidence of abnormal soft tissue densities or calcificationsthroughout the abdomen. IMPRESSION: 1. Nonobstructive bowel gas pattern. 2. No radiographic evidence of focal abnormality. Ordered By: GABY ALLAN Interpreted By: Alec Watson MD, 10/06/2024 2:41 PM us Gaby Allan MD GENERAL IMAGING Final Re sult * (ABNORMAL) HEMOGLOBIN, GLYCOSYLATED (08/07/2024) HGB A1C 7.0(A) % [address], [place] 08/07/2024 Gaby Allan MD LABORATORY Final Re sult [id number] [place] [address], [place] [phone] * EGD GENERIC (SCAN ORDER) (06/02/2024) 06/02/2024 [facility] Scanned SCANNING Final Resu lt * (ABNORMAL) LIPID PANEL (03/03/2024 10:35 AM AIRLINE RESERVATION AGENT) CHOLESTEROL 229(H) 100 - 199 mg/dL [facility] 1 TRIGLYCERIDES 237(H) 0 - 149 mg/dL [facility] 1 HDL 47 >39 mg/dL [facility] 1 VLDL CALCULATION 43(H) 5 - 40 mg/dL [facility] 1 LDL (CALCULATED) 139(H) 0 - 99 mg/dL [facility] 1 03/03/2024 10:3 5 AM AIRLINE RESERVATION AGENT 03/03/2024 Narrative [facility] - 03/05/2024 7:07 AM AIRLINE RESERVATION AGENT Performed at: 01 - [facility] [address] [id number] Elevator Repair Mechanic: Edin Helton PhD, Phone: [phone] Gaby Allan MD LABORATORY Final Re sult Performing Organization Address City/[facility]/ZIP Co de Phone Number [facility] [address] [place] [address] [facility] 1 * DIABETIC RETINOPATHY EXAM (NEGATIVE) (11/05/2023 12:00 AM CDT) 11/05/2023 [facility] Scanned SCANNING Final Resu lt [facility] ONBASE from Last 3 Months or Most Recently Relevant to Health Maintenance Additional Health Concerns Active Problems Noted Date Diagnosed Date Autogenerated Problem 10/16/2024 Insurance [place] [id number] MEDICARE [facility] Care Teams 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
--- OUTSIDE RECORDS SUMMARY | 2024-11-07 10:30 | XMS_ITS | Encounter Summary ---
Author Organization [facility] Address [address] [facility] [place] [address] Care Team Providers Care Auditor Supervisor Name Role Phone Unavailable Primary Care Provider Unavailabl e Encounter Details Date Type Department Care Team (Late st Contact Info) Description 09/25/2018 Lab Requisition [facility] Care DermPath Lab [address] 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 Gender Identity Not on file Sexual Orientation Not on file documented as of this encounter Plan of Treatment Not on file documented as of this encounter Procedures Procedure Name Priority Date/Time Associated Diagnosis Comments DERMATOPATHOLOGY Routine 09/24/2018 12:0 0 AM CDT documented in this encounter Results * DERMATOPATHOLOGY (09/24/2018 12:00 AM CDT) Case Report Dermatopathology Report Case: [id number] Authorizing Provider: Marci Benitez MD Collected: 09/24/2018 12:00 AM Pathologist: Yumiko Skinner MD Received: 09/25/2018 08:22 AM Specimen: Skin, central mid back 9 3:59 PM CDT DERMATOPATHOLOGY LABORATORY Final Diagnosis Specimen A. SKIN, central mid back: LICHEN PLANUS-LIKE KERATOSIS (BENIGN LICHENOID KERATOSIS) (L82.1) 3:59 PM CDT DERMATOPATHOLOGY LABORATORY at 1559 CDT Clinical History R/O BCC, irritated, non-healing. 3:59 PM CDT DERMATOPATHOLOGY LABORATORY Gross Description Specimen A: Received is one formalin filled container labeled with the patient's name and designated central mid back. The specimen consists of a shave measuring [id number]. Jar 0. 3:59 PM CDT DERMATOPATHOLOGY LABORATORY Microscopic Description Specimen A. SKIN, central mid back: The epidermis is mildly acanthotic. There is a lichenoid infiltrate with vacuolar changes of basilar keratinocytes and scattered necrotic keratinocytes. 3:59 PM CDT DERMATOPATHOLOGY LABORATORY Disclaimer An external and internal positive and negative controls are appropriate for the histochemical, immunohistochemical and immunofluorescence stain(s) in this case (if any), except where stated explicitly. The performance characteristics of the stain(s) cited in this report were developed and its performance characteristic determined by the Dermatopathology Laboratory at [facility], directed by Dr. Bernadette Skinner. These tests need not be, and therefore are not, approved by the [place] Food and Drug Administration. The tests are used for clinical purposes. Billing Codes Specimen Charges Stain Charges 38451 1 3:59 PM CDT DERMATOPATHOLOGY LABORATORY Embedded Images 3:59 PM CDT DERMATOPATHOLOGY LABORATORY Pathology/Cytolog y TISSUE SPECIMEN FROM SKIN / Unknown 09/24/2018 09/25/2018 8:22 AM CDT Marci Benitez MD LAB - PATHOLOGY/CYTOLOGY OR DERABLES Final Result DERMATOPATHOLOGY LABORATORY [facility] - Department of Dermatology [address] [facility] [place] [address], [facility] [phone] documented in this encounter Visit Diagnoses Not on filedocumented in this encounter
--- OUTSIDE RECORDS SUMMARY | 2024-11-07 10:30 | XMS_ITS | Data Portability ---
Author Organization [employer] , [facility] Address [address] [place] [address] Care Team Providers Care Nursery Rn Name Role Phone JOSSELINE MARTINEZ Primary Care Provider Assessment No assessment recorded. Plan of Treatment Reminders Order Date Submit Date Provider Last Modified By Organization Details Last Modified Time Details Appointments None recorded. Lab None recorded. Referral None recorded. Procedures None recorded. Surgeries None recorded. Imaging bone density [address], [address] [place] [address], [address], 15:05:37 MAMMO, screening, digital, bilateral 2020 021 [email or web address] Not available 17:15:40 Medication Orders Premarin 0.625 mg/gram vaginal cream 2020 021 [id number], [address] [place], [address], 10:01:32 Patient TargetsNo targets recorded. Patient Instructions Encounter Date Encounter Id Patient Instructions Last Modified By Organization Details Last Modified Time 03/31/2021 [id number] eating healthy foods: care instructions [email or web address] Not available 03/31/2021 12:06:20 Reason for Referral None Reported. Results Created Date Observation Date Name Description Value Unit Range Abnormal Flag Note LastModifiedBy Organization Detail LastModifiedTime 05/10/19 23 05/10/2022 MAMMO , scree bri, bilat eral No observ ation record ed. [facility] [address] [place], [address], 05/15/2022 08:47:13 07/03/19 24 07/03/2023 MAMMO , scree bri, bilat eral No observ ation record ed. [facility] [address] [place], [address], 07/03/2023 13:43:08 10/22/19 25 10/21/2024 MAMMO , scree bri, tomos ynthe sis, bilat eral No observ ation record ed. [facility] [address], [address], 10/22/2024 11:24:18 Result Notes None recorded. Problems Name Problem SNOMED Code Status Onset Date Resolution Date Notes Provider Name and Address Organization Details Recorded Time Screenin g for malignan t neoplasm of breast Completed 201304/09/2014 Screenin g for breast cancer; Location : None Progress : Stable Added By: Reba Leiva Add to Current Problems : NO ProblemS tatus: Resolve Not Available [facility] 2 20:42:28 Breast lump 47759253 Completed 201303/31/2019 Breast lesion (6month f/u); Location : None Progress : Stable Added By: Kristin Long Add to Current Problems : YES ProblemS tatus: Current Breast lesion (6month f/u); Progress : Stable Added By: Kristin Long Add to Current Problems : NO ProblemS tatus: Resolve Not Available [facility] 2 20:42:22 Family history of malignan t neoplasm of gastroin testinal tract 532299307 Completed 201503/31/2019 Family history of colon cancer; Progress : Stable Added By: Sultana Infante Add to Current Problems : NO ProblemS tatus: Resolve Family history of colon cancer; Location : None Progress : Stable Added By: Sultana Infante Add to Current Problems : YES ProblemS tatus: Current Not Available [facility] 2 20:42:25 Menopaus al symptom 42724115 Completed 201507/29/2016 Menopaus al symptoms ; Progress : Stable Added By: Carine Faulkner Add to Current Problems : NO ProblemS tatus: Resolve Not Available [facility] 2 20:42:27 Breast neoplasm screenin g status 160386503 Completed 201512/27/2015 Encounte r for other screenin g for malignan t neoplasm of breast; Progress : Stable Added By: Carine Faulkner Add to Current Problems : NO ProblemS tatus: Resolve Not Available [facility] 2 20:42:28 Menopaus e present 812343817 Completed 201507/29/2016 Menopaus al and female climacte barb states; Progress : Stable Added By: Carine Faulkner Add to Current Problems : NO ProblemS tatus: Resolve Not Available [facility] 2 20:42:29 Breast neoplasm screenin g NOS Completed 201512/27/2015 Screenin g for breast cancer, unspecif ied; Severity : Moderate Progress : Stable Added By: Carine Faulkner Add to Current Problems : NO ProblemS tatus: Resolve Not Available [facility] 1 03:28:49 Family history of malignan t neoplasm of digestiv e organ 559574019 Active 2015 Family history of malignan t neoplasm of digestiv e organs; Progress : Stable Added By: Sultana Infante Add to Current Problems : YES ProblemS tatus: Current Not Available [facility] 2 20:42:23 Screenin g for osteopor osis Completed 201512/27/2015 Encounte r for screenin g for osteopor osis; Progress : Stable Added By: Sultana Infante Add to Current Problems : NO ProblemS tatus: Resolve Screenin g for osteopor osis; Location : None Progress : Stable Added By: Sultana Infante Add to Current Problems : YES ProblemS tatus: Resolve Not Available [facility] 2 20:42:24 Senile osteopor osis 90218244 Completed 201503/31/2019 Postmeno pausal osteopor osis; Progress : Stable Added By: Renetta Rodriguez Add to Current Problems : NO ProblemS tatus: Resolve Not Available [facility] 2 20:42:24 Osteopor osis 05087745 Active 2015 Age-rela joshua osteopor osis without current patholog ical fracture ; Progress : Stable Added By: Renetta Rodriguez Add to Current Problems : YES ProblemS tatus: Current Not Available [facility] 2 20:42:22 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; Location : None Progress : Stable Added By: Renetta Rodriguez Add to Current Problems : YES ProblemS tatus: Current Not Available [facility] 2 20:42:24 Atrophic vaginiti s 94417713 Active 2018 Postmeno pausal atrophic vaginiti s; Progress : Stable Added By: Mehreen Simpson Add to Current Problems : YES ProblemS tatus: Current Not Available [facility] 2 20:42:23 Sampling of vagina for Papanico laou smear Active 2018 Encounte r for gynecolo gical examinat ion (general ) (routine ) without abnormal findings ; Progress : Stable Added By: Renetta Rodriguez Add to Current Problems : YES ProblemS tatus: Current Not Available [facility] 2 20:42:22 Screenin g mammogra phy Active 2018 Encounte r for screenin g mammogra m for malignan t neoplasm of breast; Progress : Stable Added By: Kristin Lal Add to Current Problems : YES ProblemS tatus: Current Not Available [facility] 2 20:42:23 Notes:Screening for breast c ancer, unspecified (V76.10) ; OnsetDate: 10/28/2015; ResolvedDate: 12/27/2015; Progress: Stable Added By: Carine Faulkner Add to Current Problems: NO ProblemStatus: Resolve Vaginal pap (V76.47) ; OnsetDate: 07/08/2013; Location: None Progress: Stable Added By: Reba Leiva Add to Current Problems: NO ProblemStatus: Current Vaginal pap (V76.47) ; OnsetDate: 07/08/2013; ResolvedDate: 03/31/2019; Progress: Stable Added By: Reba Leiva Add to Current Problems: NO ProblemStatus: Resolve Problem Notes None recorded. Procedures Surgical History Date Name Laterality Status Provider Name and Address Organization Details Recorded Time 10/22/19 16 Most Recent Bone Density completed [facility] 03/31/2021 01:36:40 07/09/19 14 Date of Last Pap Smear completed [facility] 03/31/2021 01:36:02 Diagnostic colonoscopy completed [facility] 03/31/2021 01:37:11 total hysterectomy via vaginal approach completed [facility] 03/31/2021 01:37:57 dilation and curettage completed [facility] 03/31/2021 01:38:07 tonsillectomy completed [facility] 03/31/2021 01:38:26 Imaging Results None recorded. Procedure Notes None recorded. Medical Equipment None Reported. Allergies Allergen ID Allergen Name Allergen Category Reaction Reaction Severity Criticality Documentation Date Start Date Code Code System Note Provider Name and Address Organization Details Recorded Time 976092 amitripty line hydrochlo ride medicatio n Not available Not available Not available 02/11/20212013 69891 8 RxNorm Sever ity: Moder ate; Not Available [facility] 01:14:34 540318 Aleve medicatio n Not available Not available Not available 02/11/20212018 49669 1 RxNorm Sever ity: Moder ate; Not Available [facility] 01:14:34 491433 nitroglyc shruti medicatio n Not available Not available Not available 02/11/20212013 4917 RxNorm Sever ity: Moder ate; Not Available [facility] 01:14:34 034325 Relafen medicatio n Not available Not available Not available 02/11/20212013 97096 4 RxNorm Sever ity: Moder ate; Not Available [facility] 01:14:35 247466 xipamide Not available Not available Not available Not available 02/11/20212015 39441 RxNorm Sever ity: Moder ate; Not Available [facility] 01:14:35 Medications Name Sig Start Date Stop Date Status Note LastModified by Organization Details LastModified Time metoprolo l tartrate 100 mg tablet active Metoprol ol Allow Substitu tion: False Refill Denied: No Refill DateOccu rred: 03/31/20 Edited by: Renetta Sims ) on 03/31/20 Stopped by: Renetta Sims ) on Not Available Not Available Not Available metoprolo l succinate ER 50 mg tablet,ex tended release 24 hr active Not Available Not Available Not Available peg-elect rolyte solution 420 gram oral solution active Not Available Not Available Not Available lisinopri l 10 mg tablet active Not Available Not Available Not Available promethaz ine 25 mg tablet active Not Available Not Available Not Available metoprolo l tartrate 50 mg tablet active Metoprol ol Allow Substitu tion: False Refill Denied: No Refill DateOccu rred: 03/31/20 Edited by: adi miguel(Renetta Flores ) on 03/31/20 Stopped by: Renetta Sims ) on Not Available Not Available Not Available metoprolo l succinate ER 25 mg tablet,ex tended release 24 hr active Metoprol ol Allow Substitu tion: False Refill Denied: No Refill DateOccu rred: 03/31/20 Edited by: Renetta Sims ) on 03/31/20 Stopped by: adi miguel(Renetta Flores ) on Not Available Not Available Not Available albuterol sulfate HFA 90 mcg/actua tion aerosol inhaler active Not Available Not Available Not Available ezetimibe 10 mg tablet active Not Available Not Available Not Available Premarin 0.625 mg/gram vaginal cream APPLY 0.5 GRAMS VAGINALL Y AT NIGHT FOR 3 NIGHTS PER WEEK active Not Available Not Available No t Available rosuvasta tin 5 mg tablet active Not Available Not Available Not Available Crestor 10 mg tablet 2013 active Crestor 10 mg oral tablet RxNorm: 708264 Allow Substitu tion: True Refill Denied: No Refill DateOccu rred: 07/14/19 17 Edited by: Renetta Sims ) on 03/31/20 19 Stopped by: adi miguel(Renetta Flores ) on Not Available Not Available Not Available aspirin active aspirin RxNorm: 1688736 Allow Substitu tion: False Refill Denied: No Refill DateOccu rred: 03/31/20 19 Edited by: adi miguel(Renetta Flores ) on 03/31/20 19 Stopped by: adi miguel(Renetta Flores ) on Not Available Not Available Not Available vitamin E 07/13 completed Vitamin E 400IU Capsules RxNorm: 879814 Allow Substitu tion: True Refill Denied: No Refill DateOccu rred: 07/09/19 14 Not Available Not Available Not Available Calcium 600 10/27 completed Calcium 600 RxNorm: 1897 Allow Substitu tion: True Refill Denied: No Refill DateOccu rred: 07/14/19 17 Edited by: adi miguel(Renetta Flores ) on 03/31/20 19 Stopped by: adi miguel(Renetta Flores ) on Not Available Not Available Not Available biotin active biotin RxNorm: 1588 Allow Substitu tion: False Refill Denied: No Refill DateOccu rred: 03/31/20 19 Edited by: adi miguel(Renetta Flores ) on 03/31/20 19 Stopped by: adi miguel(Renetta Flores ) on Not Available Not Available Not Available carvedilo l 07/13 completed Carvedil ol Allow Substitu tion: True Refill Denied: No Refill DateOccu rred: 10/28/19 16 Not Available Not Available Not Available Vitamin D3 Take 1 capsule( s) by mouth q week for 12 weeks 01/24 completed Vitamin D3 50,000IU Capsules RxNorm: 7959505 Allow Substitu tion: True Refill Denied: No Not Available Not Available Not Available CoQ10 active CoQ10 Allow Substitu tion: False Refill Denied: No Refill DateOccu rred: 03/31/20 Edited by: adi miguel(Renetta Flores ) on 03/31/20 19 Stopped by: adi miguel(Renetta Flores ) on Not Available Not Available Not Available Premarin 03/31 completed Premarin RxNorm: 672365 Refill Denied: No Refill Note: Refill Prescrib ed Refill DateOccu rred: 03/31/20 Edited by: adi miguel(Renetta Flores ) on 03/31/20 Stopped by: adi miguel(Renetta Flores ) on 03/31/20 19 Not Available Not Available Not Available Crestor Take 1 tablet by mouth every other day 10/27 completed Crestor 5mg Tablet RxNorm: 687403 Allow Substitu tion: True Refill Denied: No Refill DateOccu rred: 07/09/19 14 Not Available Not Available Not Available Probiotic active Probioti c Allow Substitu tion: False Refill Denied: No Refill DateOccu rred: 03/31/20 Edited by: adi miguel(Renetta Flores ) on 03/31/20 19 Stopped by: adi miguel(Renetta Flores ) on Not Available Not Available Not Available Vitamin D3 50 mcg (2,000 unit) capsule Take 1 1/2 capsule( s) by mouth daily 2013 active Vitamin D3 2,000 unit oral capsule RxNorm: 731192 Allow Substitu tion: True Refill Denied: No Refill DateOccu rred: 07/09/19 14 Edited by: adi miguel(Renetta Flores ) on 03/31/20 19 Stopped by: adi miguel(Renetta Flores ) on Not Available Not Available Not Available Eliquis 5 mg tablet take 1 tablet (5 mg) by oral route 2 times per day active Eliquis 5 mg oral tablet RxNorm: 3495943 Allow Substitu tion: False Refill Denied: No Refill DateOccu rred: 03/31/20 Edited by: Renetta Sims ) on 03/31/20 Stopped by: Renetta Sims ) on Not Available Not Available Not Available lutein 40 mg capsule active lutein 40 mg oral capsule RxNorm: 138895 Allow Substitu tion: False Refill Denied: No Refill DateOccu rred: 03/31/20 Edited by: adi miguel(Renetta Flores ) on 03/31/20 Stopped by: Renetta Sims ) on Not Available Not Available Not Available Soolantra 1 % topical cream active Not Available Not Available Not Available Vitals Date Recorded Body weight Body mass index (BMI) Body height Systolic And Diastolic Provider Name and Address Organization Details Last Updated DateTime 03/31/2021 37050.11 g 29 kg/m2 162.56 cm 134/76 mm[Hg] Renetta Brown [employer] [facility] 03/31/2021 09:32:54 Social History Question Answer Notes LastModified by [employer] Details LastModified Time Tobacco Smoking Status Never Smoker Renetta Brown null, [employer] [facility] 03/31/2021 09:36:01 How Many Children Do You Have? 2 Information not available 03/31/2021 What Is Your Relationship Status? Information not available 03/31/2021 Are You Sexually Active? No Information not available 03/31/2021 Sex: Unknown Functional Status Question Answer Note LastModified by Organizat ion Details LastModified Time Do you use any illicit or recreational drugs? No Information not available 03/31/2021 What is your level of alcohol consumption? None Information not available 03/31/2021 Mental Status None recorded. Family History Relationship Description Onset Age of this Age Resolved Age Notes LastModified by Organization Details LastModified Time Father History of hypertension [email or web address] Not available 1 06/01/2020 01:39:07 Father Type 2 diabetes mellitus [email or web address] Not available 12/2020 01:40:30 Mother History of hypertension [email or web address] Not available 1 06/01/2020 01:39:07 Mother Malignant tumor of breast dpietrusiak Not available 12/2020 01:39:24 Mother Malignant tumor of colon 60 dpietrusiak Not available 12/2020 01:39:59 Mother Type 2 diabetes mellitus dpietrusiak Not available 12/2020 01:40:30 Brother Malignant tumor of colon deceas ed age 46 dpietrusiak Not available 03/31/2021 01:39:59 Sister Malignant neoplasm of uterus dpietrusiak Not available 12/2020 01:40:12 Sister Type 2 diabetes mellitus [email or web address] Not available 12/2020 01:40:30 Medical History Condition Response History of Abnormal Pap Y Osteoporosis Y High Cholesterol Y Gynecological History Statement/Question Response If Post Menopausal, Age at Menopause 44 Date of Last Pap Smear 07/08/2013 Most Recent Mammogram Current Control Method Menopause Most Recent Bone Density 10/22/2015 Obstetrics History GPAL:G 2 P 2 0 0 2 Type Value Full Term 2 Living 2 Total 2 Past Encounters Encounter ID Performer Location Encounter Start Date Encounter Closed Date Diagnosis/Indication Diagnosis SNOMED-CT Code Diagnosis ICD10 Code Diagnosis Note [id number] Berenice Cotter , [facility] [address] [place] [address] 03/31/2021 09:14:01 03/31/2021 10:11:06 Gynecologic examination 72776062 Z01.419 Screening for malignant neoplasm of breast 121444164 Z12.39 Mammogram and Dexa scan orders given. Complete hysterecto my ~14 years ago. No longer sexually active, 2 years ago. Screening for osteoporosis 764605533 Z13.820 Atrophic vaginitis 18678 000 N95.2 Health Concerns Section Related Observation LastModified by Organization Detai ls LastModified Time None Recorded Concern Status LastModified by Organization Details LastModified Time None Recorded Advance Directives Directive None Recorded Payers Insurance Date Sequence Insurance Name Policy Number Policy Concepcion Covered Member ID Concepcion Member ID Guarantor Name 04/29/[address] [place] [id number] Ezio Borrego [id number] Libby Borrego 03/31/2021 1 [place] Deepa Chaneyiainluz maria [id number] Libby Drake Giannaluz maria Notes Date Note Type Note Provider Name and Address Organization Details Recorded Time 03/31/2021 text/html Patient is here for her annual exam without cervical pap smear. Her last menstural period was __unknown; hysterectomy . Her current control is ___none . She is ___not sexually active. The patient _does perform monthly breast exams. Her last pap smear was ___07/08/2013 and the results were _NML . Her last mammogram was 12/2020____ and the results were __NML . Her last colonoscopy was __10/2016 and the results were _polyps removed . Her last dexa scan was ____10/2015 and the results were abnormal . The patients __denies to smoking. Pt is needing a refill on her premerin. Berenice Ochoa, CN [address], [place], [address], [facility] IV 03/31/2021 10:02:33 OBGyn Episode No OBEpisode recorded.
--- OUTSIDE RECORDS SUMMARY | 2024-11-07 10:30 | XMS_ITS | Referral Summary ---
Author Organization [facility] Address [address] [place] [address] Care Team Providers Care Slitter And Rewinder Name Role Phone Berenice Garrison CNM Unavailable [phone] No, Physician Primary Care Provider [phone] Encounters Date Type Department Care Team Description 10/21/2024 1:07 PM CDT - 10/21/2024 11:59 PM CDT Hospital Encounter [facility] B[facility] [address] [place] [address] [place] [address] Screening mammogram, encounter for Discharge Disposition: Discharge to home or self care from Last 3 Months Allergies Active Allergy Reactions Criticality Noted Date [...] once a week 1 11/29/2018 Active vit C,T-St-tyoug-lut ein-zeaxan 250-90-40-1 mg capsule Take by mouth [...] 01/15/2015 Shortness of breath at rest 01/15/2015 Social History Tobacco Use Types Packs/Day Years Used Date Smoking Tobacco: Never Smokeless Tobacco: Never Alcohol Use Standard Drinks/Week Comments Not Currently 0 (1 standard drink = 0.6 oz pur e alcohol) Comments No Sex and Gender Information Value Date Recorded Sex Assigned at Not on file Legal Sex 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 Postmenopausal Ios Software Engineer/Model: [employer] Horizon A (S/N [id number]) CLINICAL INFORMATION: Current height: 63.5 inches Maximum [...] Cali Benavides M.D. MF: KARLA Report ID: [id number] Reading Location: [id number] Procedure Note Cali Benavides MD - 09/01/2021 EXAM DESCRIPTION: DEXA AXIAL SKELETON BONE DENSITY 1 OR MORE SITES REASON FOR STUDY: 76 y/o year old F with given history ofscreening. Postmenopausal Ios Software Engineer/Model: [employer] Horizon A (S/N [id number]) CLINICAL INFORMATION: Current height: 63.5 inches Maximum [...] Cali Benavides M.D. MF: KARLA Report ID: [id number] Reading Location: [id number] Berenice LATHAM IMG DXA PROCEDURES F inal Result from Last 3 Months or Most Recently Relevant to Health Maintenance Insurance MEDICARE [facility] Address: [facility] [address] [place] [address] [facility] MEDICARE [facility] CHOICE PLUS MEDICARE [facility] INDEMNITY [place] Care Teams Slitter And Rewinder Relationship Specialty Start Date End Date No, Physician PCP - General 05/01/22 Berenice Garrison, [facility] Heading And Priming Operator Obstetrics and Gynecology 08/24/21
--- OUTSIDE RECORDS SUMMARY | 2024-11-07 10:30 | XMS_ITS | Encounter Summary ---
Author Organization [facility] Address [address] [place] [address] Care Team Providers Care Remedial Teacher Name Role Phone Gaby Locke MD Primary Care Provider + Encounter Details Date Type Department Care Team (Late Contact Info) Description 10/23/2024 Results Follow-Up [facility] [address] Mitali Phelps RN USE ECHOCARDIOGRAM Social History Tobacco Use Types Packs/Day Years [...] as of this encounter Plan of Treatment Upcoming Encounters Date Type Department Care Team (Late Contact Info) Description 02/09/2025 7:50 AM CDT Office Visit [facility] [place] [address] [facility] [address] [place] [phone] Gaby Locke MD [address] [place] [phone] 04/30/2025 3:00 PM SUSTAINABLE AGRICULTURE SPECIALIST Hospital Encounter [facility] [place] [address] Jamel Mendoza MD [address] [facility] [address] [place] [address] 04/30/2025 3:00 PM SUSTAINABLE AGRICULTURE SPECIALIST - 04/30/2025 3:30 PM SUSTAINABLE AGRICULTURE SPECIALIST Surgery [facility] [place] [address] Jamel Mendoza MD [address] [facility] [address] [place] [address] EGD 10/26/2025 9:45 AM CDT Office Visit [facility] on [facility] [address] [place] [address] Caron Ordaz MD [address] [facility] [address] [place] [address] Scheduled Procedures Name Priority Associated Diagnoses Date/Ti me EGD Dysphagia, unspecified type Chao's esophagus without dysplasia 04/30/2025 3:00 PM SUSTAINABLE AGRICULTURE SPECIALIST documented as of this encounter Goals Goal Patient Goal Type Associated Problems Recent Progress Patient-Stated? Author Autogenera joshua Goal Care Plan Autogenerated Problem No Rosalind Howell [facility] documented as of this encounter Visit Diagnoses Not on filedocumented in this encounter Additional Health Concerns Active Problems Noted Date Diagnosed Date Autogenerated Problem 10/16/2024 documented as of this encounter Care Teams Remedial Teacher Relationship Specialty Start Date End Date Gaby Locke MD [address] [place] [address] PCP - General FAMILY PRACTICE 02/07/24 documented as of this encounter
--- OUTSIDE RECORDS SUMMARY | 2024-11-07 10:30 | XMS_ITS | Encounter Summary ---
Author Organization [facility] Address [address] [place] [address] Care Team Providers Care Account Development Associate Name Role Phone Gaby Locke MD Primary Care Provider + Encounter Details Date Type Department Care Team (Late Contact Info) Description 10/07/2024 Results Follow-Up [address] [address] Gaby Locke MD [address] [place] [address] XR ABD KUB Social History Tobacco Use Types Packs/Day Years [...] Description 02/09/2025 7:50 AM CDT Office Visit [place] [id number] [address] [address] Gaby Locke MD [address] [place] [address] 04/30/2025 3:00 PM CORE PILER Hospital Encounter [facility] [address] Jamel Mendoza MD [address] [facility] [address] [place] [address] 04/30/2025 3:00 PM CORE PILER - 04/30/2025 3:30 PM CORE PILER [facility] [address] Jamel Mendoza MD [address] [facility] [address] [place] [address] EGD 10/26/2025 9:45 AM CDT [facility] [place] [address] Caron Ordaz MD Three [facility] [address] [place] [address] Scheduled Procedures Name Priority Associated Diagnoses Date/Ti me EGD Dysphagia, unspecified type Chao's esophagus without dysplasia 04/30/2025 3:00 PM CORE PILER documented as of this encounter Visit Diagnoses Not on filedocumented in this encounter Care Teams Account Development Associate Relationship Specialty Start Date End Date Gaby Locke MD [address] [place] [address] PCP - General FAMILY PRACTICE 02/07/24 documented as of this encounter
--- OUTSIDE RECORDS SUMMARY | 2024-11-07 10:30 | XMS_ITS | Clinical Summary ---
Author Organization [facility] Address [address] [facility] [place] [address] Care Team Providers Care Surgeon'S Assistant Name Role Phone Unavailable Primary Care Provider Unavailabl e Source Comments [facility],non-owned Affiliates and Associated Physician Practices is amultiple site organization consisting of ambulatory clinics and hospital sitesin [place], [place], [place]. This disclosure is being madepursuant to the Care Everywhere program and may not contain all information available regarding this patient. 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[employer] Gender Identity Not on file Sexual Orientation Not on file Plan of Treatment Health Maintenance Due Date Last Done Comments BONE DENSITY TESTING 1945 HEPATITIS C SCREENING 02/24/1965 DTAP/TDAP/TD VACCINES (1 - Tdap) 1966 PNEUMOCOCCAL VACCINE 50+ (1 of 1 - PCV) 1997 ZOSTER VACCINE (1 of 2) 1997 Respiratory Syncytial Virus (RSV) Vaccine Pt: or over 60 yrs (1 - 1-dose 75+ series) 2022 COVID-19 VACCINE ( - 2023-2 5 season) 2023 DEPRESSION SCREENING 04/23/2024 INFLUENZA VACCINE (#1) 2024 HEPATITIS B VACCINE Aged Out No longe r eligible based on patient's age to complete this topic HIB VACCINE Aged Out No longer eligi ble based on patient's age to complete this topic HPV VACCINE Aged Out No longer eligi ble based on patient's age to complete this topic MENINGOCOCCAL (Group B) VACC INE SHARED DECISION-MAKING Aged Out No longer eligibl e based on patient's age to complete this topic MENINGOCOCCAL GROUPS A/C/Y/W VACCINE Aged Out No longer eligible b ased on patient's age to complete this topic Insurance MEDICARE [facility]
--- OUTSIDE RECORDS SUMMARY | 2024-11-07 10:30 | XMS_ITS | Encounter Summary ---
Author Organization [facility] Address [address] [place] [address] Care Team Providers Care Head Neck Surgeon Name Role Phone Gaby Locke MD Primary Care Provider + Reason for Visit * Reason Onset Date Comments Eye Problem 11/07/2024 Encounter Details Date Type Department Care Team (Late st Contact Info) Description 11/07/2024 Telephone [facility] Family Medicine - [place] [address] [facility] [address] [place] [address] Gaby Locke MD [address] [place] [address] Eye Problem Social History Tobacco Use Types Packs/Day Years [...] as of this encounter Progress Notes * Renu Acosta - 11/07/2024 9:42 AM CDT Deepa called in, she said the rash has now spread to her eyes, and that she thinks she has pinkeye. Flora recommended a walk in clinic since we don't have any appointments available. documented in this encounter Plan of Treatment Upcoming Encounters Date Type Department Care Team (Late st Contact Info) Description 02/09/2025 7:50 AM CDT Office Visit [facility] Family Medicine - [place] [address] [place] [address] Gaby Locek MD [address] [place] [address] 04/30/2025 3:00 PM AGENCY APPOINTMENTS SUPERVISOR Hospital Encounter [facility] [place] [address] Jamel Mendoza MD [address] [facility] [address] [place] [address] 04/30/2025 3:00 PM AGENCY APPOINTMENTS SUPERVISOR - 04/30/2025 3:30 PM AGENCY APPOINTMENTS SUPERVISOR Surgery [facility] End[facility] [address] Jamel Mendoza MD [address] [facility] [address] [place] [address] EGD 10/26/2025 9:45 AM CDT Office Visit [facility] [address] [facility] [place] [address] Caron Ordaz MD [address] 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 Author Autogenera joshua Goal Care Plan Autogenerated Problem No Rosalind Howell [facility] documented as of this encounter Visit Diagnoses Not on filedocumented in this encounter Additional Health Concerns Active Problems Noted Date Diagnosed Date Autogenerated Problem 10/16/2024 documented as of this encounter Care Teams Head Neck Surgeon Relationship Specialty Start Date End Date Gaby Locke MD [address] [place] [address] PCP - General FAMILY PRACTICE 02/07/24 documented as of this encounter
--- OUTSIDE RECORDS SUMMARY | 2024-11-07 10:31 | XMS_ITS | Data Portability ---
Author Organization [facility] [place] [facility] Address [address] [place] [address] Care Team Providers Care Busboy Name Role Phone MAGUI CANTU Primary Care Provider Assessment No assessment recorded. Plan of Treatment Reminders Order Date Submit Date Provider Last Modified By Organization Details Last Modified Time Details Appointments None recorded. Lab HbA1c (hemoglob in A1c), blood 2023 024 BRET In-Office Order, Internal Use Only DO Not Attach Compendium DO Not Attach Compendium, Do Not Delete/merge, [id number] 4 12:15:11 CMP, serum or plasma 2023 024 [facility], [address], [address], [place], [address], 4 14:20:52 CBC w/ auto diff 2023 024 [facility], [address], [address], [place], [address], 4 14:20:52 hemoglobi n A1c, QN, blood 2023 024 [facility], [address], [address], [place], [address], 4 14:20:52 microalbu min/creat inine, ratio, urine 2023 024 [facility], [address], [address], [place], [address], 4 14:20:52 HbA1c (hemoglob in A1c), blood 2022 023 BRET [facility], [address], [address], [place], [address], 3 01:10:27 microalbu min, urine 2022 023 BRET In-Office Order, Internal Use Only DO Not Attach Compendium DO Not Attach Compendium, Do Not Delete/merge, [id number] 3 16:08:47 HbA1c (hemoglob in A1c), blood 2021 022 [place] [facility], [address], [address], [place], [address], 2 04:09:00 BMP, serum or plasma 2021 022 [facility], [address], [address], [place], [address], 2 04:08:58 lipid panel, serum 2021 [place] [facility], [address], [place], [address], 2 04:08:58 AST/SGOT (aspartat e aminotran sferase), serum or plasma 2021 022 [place] [facility], [address], [place], [address], 2 04:08:59 lipid panel, serum 2021 022 [place] [facility], [address], [place], [address], 2 03:01:40 AST/SGOT (aspartat e aminotran sferase), serum or plasma 2021 [facility], [address], [place], [address], 2 03:01:40 CBC w/ auto diff 2021 [facility], [address], [place], [address], 4 08:22:30 vitamin D, 25-hydrox y, total, serum 2021 [facility], [address], [place], [address], 2 03:01:41 HbA1c (hemoglob in A1c), blood 2021 [facility], [address], [address], [place], [address], 2 03:01:39 BMP, serum or plasma 2021 [facility], [address], [place], [address], 2 03:01:39 Referral vascular surgeon referral - Please contact patient for appt, thanks! 2023 024 BRET Brennan MD, [facility], [address], [place], [address], 4 19:23:25 sports medicine referral 2022 023 BRET Bradley MD, [facility] [address], [address], [place], [address], 4 17:03:00 cardiolog ist referral - ONLY DR QUIROS - NEEDS A FEMALE 2021 022 BRET Quiros MD, [facility], [address], [place], [address], 2 12:03:08 Procedures None recorded. Surgeries None recorded. Imaging XR, shoulder, 2 or more view 2022 023 [facility] Scheduling, [facility], [place], [address], 3 13:54:01 Medication Orders Farxiga 5 mg tablet 2023 024 [facility]/Pharmacy #2510, [address] [place], [address], 4 10:45:57 Farxiga 10 mg tablet 2023 024 [facility]/Pharmacy #2510, [address] [place], [address], 4 10:45:57 Farxiga 10 mg tablet 2022 023 [facility]/Pharmacy #2510, [address] [place], [address], 3 10:55:08 ezetimibe 10 mg tablet 2022 023 [facility]/Pharmacy #2510, [address] [place], [address], 3 10:03:17 rosuvasta tin 5 mg tablet 2022 023 [facility]/Pharmacy #2510, [address] [place], [address], 3 10:02:56 metoprolo l succinate ER 50 mg tablet,ex tended release 24 hr 2022 023 [email or web address] [facility]/Pharmacy #2510, [address] [place], [address], 3 08:39:38 lisinopri l 10 mg tablet 2022 023 [facility]/Pharmacy #2510, [address] [place], [address], 3 13:05:35 Farxiga 5 mg tablet 2022 023 [email or web address] 9 [facility]/Pharmacy #2510, [address] [place], [address], 4 10:39:04 fluconazo le 150 mg tablet 2021 022 [facility] [address] [place], [address], 3 12:05:44 ezetimibe 10 mg tablet 2021 022 [facility], [address] [place], [address], 3 10:03:17 lisinopri l 10 mg tablet 2021 022 [facility]/Pharmacy #2510, [address] [place] [address], [address], 2 13:26:02 Patient TargetsNo targets recorded. Patient Instructions Encounter Date Encounter Id Patient Instructions Last Modified By Organization Details Last Modified Time 09/07/2021 [id number] high cholesterol : care instructions Not available 09/07/2021 13:25:57 learning about high blood pressure Not available 09/07/2021 13:25:58 type 2 diabetes: care instructions Not available 09/07/2021 13:25:58 body mass index: care instructions Not available 09/07/2021 13:25:57 learning about healthy weight Not available 09/07/2021 13:25:57 03/15/2022 [id number] learning about healthy weight Not available 03/15/2022 12:26:42 A healthy lifestyle: care instructions Not available 03/15/2022 12:26:42 type 2 diabetes: care instructions Not available 03/15/2022 10:52:54 learning about high blood pressure Not available 03/15/2022 10:52:54 high cholesterol : care instructions Not available 03/15/2022 10:52:54 10/02/2022 [id number] advance care planning: care instructions Not available 10/02/2022 13:05:29 preventing falls : care instructions Not available 10/02/2022 13:05:28 Medicare Well[place] [facility] Preventive Checklist [id number] Not available 10/02/2022 13:05:28 eating healthy foods: care instructions [id number] Not available 10/02/2022 13:05:28 learning about healthy weight [id number] Not available 10/02/2022 13:05:28 Deepa, - Byron nk you for your visit - Continue your current medications - Your results will be available on the portal with any recommendations, or we will call you with them - Return to clinic in 6 months, AND as needed. - Call with any concerns Immunization recommendations: Preventive immunization against tetanus, diphtheria and pertussis is recommended every 10 years, or after 7 years if sustaining a tetanus-prone wound. Preventive immunization against shingles (herpes zoster) is recommended to reduce risk of occurrence, possible chronic pain, and transmission. Currently this is a two shot regimen. All individuals age 65 and up are encouraged to obtain vaccination against Pneumococcal pneumonia. Currently, this is a single immunization, [id number], if you have never previously been immunized. Yearly influenza immunization is recommended, and typically available beginning in mid-December. I highly encourage all who are able to complete an initial immunization series against COVID19, along with boosters as indicated by age or medical history. Exercise recommendations: It is recommended that you do daily aerobic (walking, bicycling, swimming) and resistance exercises (light weight lifting, resistance band stretching) for at least 30 minutes, most days of the week. If you cannot walk, chair exercises for 10-15 minutes a day would help tremendously. As little as 15-20 minutes exercise, in one or two sessions a day, is still very helpful to manage/improve your weight and overall health Diet recommendations: Eat small portion meals, trying not to consume more than 1800 calories a day. Try to eat not more than 2 servings of carbs (starches) with your meals. Avoid soft drinks, including regular sodas, fruit juices, and sweetened tea. Drink water instead. Eat plenty of green and leafy vegetables, including salads. [email or web address] Not available 10/02/2022 13:02:18 04/09/2023 [id number] learning about asthma [id number] Not available 04/09/2023 10:55:04 (STEFFANY) ankle brachial index* [id number] Not available 04/12/2023 19:13:06 type 2 diabetes: care instructions [id number] Not available 04/09/2023 10:55:05 learning about healthy weight [id number] Not available 04/09/2023 10:55:05 learning about high blood pressure [email or web address] Not available 04/09/2023 10:55:05 Deepa, - Byron nk you for your visit - Continue your current medications - Have your imaging studies done at your earliest convenience - Your results will be available on the portal with any recommendations, or we will call you with them - increase your Farxiga - call if you have any problems - Return to clinic in 3 months AND as needed - Call with any concerns Immunization recommendations: Preventive immunization against tetanus, diphtheria and pertussis is recommended every 10 years, or after 7 years if sustaining a tetanus-prone wound. Preventive immunization against shingles (herpes zoster) is recommended to reduce risk of occurrence, possible chronic pain, and transmission. Currently this is a two shot regimen. All individuals age 65 and up are encouraged to obtain vaccination against Pneumococcal pneumonia. Currently, this is a single immunization, [id number], if you have never previously been immunized. Yearly influenza immunization is recommended, and typically available beginning in mid-December. I highly encourage all who are able to complete an initial immunization series against COVID19, along with boosters as indicated by age or medical history. Consider obtaining an RSV immunization. For more information: https://www.cdc.go v/vaccines/vpd/rsv /index.html Your goal hemoglobin A1c is under 7.0 to prevent long-term diabetes complications (eye , kidney, and nerve damage). Your goal sugars are in the 90-130 range Exercise recommendations: It is recommended that you do daily aerobic (walking, bicycling, swimming) and resistance exercises (light weight lifting, resistance band stretching) for at least 30 minutes, most days of the week. If you cannot walk, chair exercises for 10-15 minutes a day would help tremendously. As little as 15-20 minutes exercise, in one or two sessions a day, is still very helpful to manage/improve your weight and diabetes control. Diet recommendations: Eat small portion meals, trying not to consume more than 1800 calories a day. Try to eat not more than 2 servings of carbs (starches) with your meals. Avoid soft drinks, including regular sodas, fruit juices, and sweetened tea. Drink water instead. Eat plenty of green and leafy vegetables, including salads. Medications: Take your medications regularly. Setting phone alarms can help. Keep your medication on the kitchen dinner table, by the bedside table or by the sink where they are visible to you. [email or web address] Not available 04/09/2023 10:56:01 08/06/2023 [id number] type 2 diabetes: care instructions [id number] Not available 08/06/2023 10:45:47 learning about healthy weight [email or web address] Not available 08/06/2023 10:45:47 Deepa, - Byron nk you for your visit - Continue your current medications - Have your labwork drawn prior to your next visit - Your results will be available on the portal with any recommendations, or we will call you with them - I have placed referral(s) below. You should receive a phone call in the next 2 weeks to schedule this(these) appointment(s). - monitor your cough - should it return, I would switch you to losartan - Return to clinic in 3 months AND as needed - Call with any concerns Immunization recommendations: - Preventive immunization against tetanus, diphtheria and pertussis is recommended every 10 years, or after 7 years if sustaining a tetanus-prone wound - Preventive immunization against shingles (herpes zoster) is recommended to reduce risk of occurrence, possible chronic pain, and transmission. Currently this is a two shot regimen - All individuals age 65 and up are encouraged to obtain vaccination against Pneumococcal pneumonia. Currently, this is a single immunization, [id number], if you have never previously been immunized - Yearly influenza immunization is recommended, and typically available beginning in mid-December - I highly encourage all who are able to complete an initial immunization series against COVID19, along with boosters as indicated by age or medical history - Consider obtaining an RSV immunization. For more information: https://www.cdc.go v/vaccines/vpd/rsv /index.html - Your goal hemoglobin A1c is under 7.0 to prevent long-term diabetes complications (eye , kidney, and nerve damage). - Your goal sugars are in the 90-130 range Exercise recommendations: - It is recommended that you do daily aerobic (walking, bicycling, swimming) and resistance exercises (light weight lifting, resistance band stretching) for at least 30 minutes, most days of the week. - If you cannot walk, chair exercises for 10-15 minutes a day would help tremendously. - As little as 15-20 minutes exercise, in one or two sessions a day, is still very helpful to manage/improve your weight and diabetes control. Diet recommendations: - Eat small portion meals, trying not to consume more than 1800 calories a day. - Try to eat not more than 2 servings of carbs (starches) with your meals. - Avoid soft drinks, including regular sodas, fruit juices, and sweetened tea. Drink water instead. - Eat plenty of green and leafy vegetables, including salads. Medications: - Take your medications regularly. Setting phone alarms can help. - Keep your medication on the kitchen dinner table, by the bedside table or by the sink where they are visible to you. 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 Referring Physician: Magui Cantu, [facility], Encounter Date: 08/06/2023 Results Created Date Observation Date Name Description Value Unit Range Abnormal Flag Note LastModifiedBy Organization Detail LastModifiedTime 09/30/19 22 09/30/2021 CBC/D IFF AMBIG UOUS DEFAU LT WBC 6.3 x10e3 /uL 3.4-10 .8 Not Available [facility] ([facility]) [address] [place], [address], 09/30/2021 07:12:15 09/30/19 22 09/30/2021 CBC/D IFF AMBIG UOUS DEFAU LT RBC 4.73 x10e6 /uL 3.77-5 .28 Not Available [facility] ([facility]) [address] [facility], [place], [address], 09/30/2021 07:12:15 09/30/1909/30/2021 CBC/D IFF AMBIG UOUS DEFAU LT hemoglobin 13.9 g/dL 11.1-1 5.9 Not Available [facility] ([facility]) [address] [place], [address], 09/30/2021 07:12:15 09/30/1909/30/2021 CBC/D IFF AMBIG UOUS DEFAU LT hematocrit 40.8 % 34.0-4 6.6 Not Available [facility] ([facility]) [address] [place], [address], 09/30/2021 07:12:15 09/30/19 22 09/30/2021 CBC/D IFF AMBIG UOUS DEFAU LT MCV 86 fL 79-97 Not Available [facility] ([facility]) [address] [facility], [place], [address], 09/30/2021 07:12:15 09/30/19 22 09/30/2021 CBC/D IFF AMBIG UOUS DEFAU LT MCH 29.4 pg 26.6-3 3.0 Not Available [facility] ([facility]) [address] [facility], [place], [address], 09/30/2021 07:12:15 09/30/19 22 09/30/2021 CBC/D IFF AMBIG UOUS DEFAU LT MCHC 34.1 g/dL 31.5-3 5.7 Not Available [facility] ([facility]) [address] [facility], [place], [address], 09/30/2021 07:12:15 09/30/19 22 09/30/2021 CBC/D IFF AMBIG UOUS DEFAU LT RDW 12.5 % 11.7-1 5.4 Not Available [facility] ([facility]) [address] [facility], [place], [address], 09/30/2021 07:12:15 09/30/19 22 09/30/2021 CBC/D IFF AMBIG UOUS DEFAU LT platelets 167 x10e3 /uL 150-45 0 Not Available [facility] ([facility]) [address] [facility], [place], [address], 09/30/2021 07:12:15 09/30/19 22 09/30/2021 CBC/D IFF AMBIG UOUS DEFAU LT neutrophils 56 % not estab. Not Available [facility] ([facility]) [address] [facility], [place], [address], 09/30/2021 07:12:15 09/30/19 22 09/30/2021 CBC/D IFF AMBIG UOUS DEFAU LT lymphs 29 % not estab. Not Available [facility] ([facility]) [address] [facility], [place], [address], 09/30/2021 07:12:15 09/30/19 22 09/30/2021 CBC/D IFF AMBIG UOUS DEFAU LT monocytes 9 % not estab. Not Available [facility] ([facility]) [address] [facility], [place], [address], 09/30/2021 07:12:15 09/30/19 22 09/30/2021 CBC/D IFF AMBIG UOUS DEFAU LT eos 5 % not estab. Not Available [facility] ([facility]) [address] [facility], [place], [address], 09/30/2021 07:12:15 09/30/19 22 09/30/2021 CBC/D IFF AMBIG UOUS DEFAU LT basos 1 % not estab. 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 0 Not Available [facility] ([facility]) [address] [place], [address], 09/30/2021 07:12:15 09/30/19 22 09/30/2021 CBC/D IFF AMBIG UOUS DEFAU LT lymphs (absolute) 1.8 x10e3 /uL 0.7-3. 1 Not Available [facility] ([facility]) [address] [facility], [place], [address], 09/30/2021 07:12:15 09/30/19 22 09/30/2021 CBC/D IFF AMBIG UOUS DEFAU LT monocytes(ab solute) 0.6 x10e3 /uL 0.1-0. 9 Not Available [facility] ([facility]) [address] [facility], [place], [address], 09/30/2021 07:12:15 09/30/19 22 09/30/2021 CBC/D IFF AMBIG UOUS DEFAU LT eos (absolute) 0.3 x10e3 /uL 0.0-0. 4 Not Available [facility] ([facility]) [address] [facility], [place], [address], 09/30/2021 07:12:15 09/30/19 22 09/30/2021 CBC/D IFF AMBIG UOUS DEFAU LT baso (absolute) 0.1 x10e3 /uL 0.0-0. 2 Not Available [facility] ([facility]) [address] [facility], [place], [address], 09/30/2021 07:12:15 09/30/19 22 09/30/2021 CBC/D IFF AMBIG UOUS DEFAU LT immature granulocytes 0 % not estab. Not Available [facility] ([facility]) [address] [facility], [place], [address], 09/30/2021 07:12:15 09/30/19 22 09/30/2021 CBC/D IFF AMBIG UOUS DEFAU LT immature grans (abs) 0.0 x10e3 /uL 0.0-0. 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 In accor dance with the [facility] Ambig uous Test Code Polic y dated October 2002, we have assig tyler CBC with Diffe renti al/Pl atele t, Test Code #[address] If this is not the testi ng you wishe d to recei ve on this speci men, pleas e conta ct the [facility] Clien t Inqui ry/ Techn ical Servi leonie Depar tment to mike fy the test order . We appre ciate your busin ess. Not Available [facility] ([facility]) [address] [facility], [place], [address], 09/30/2021 07:12:15 09/30/19 22 09/30/2021 BASIC METAB OLIC PANEL (8) glucose 150 mg/dL 65-99 above high normal Not Available [facility] ([facility]) [address] [place], [address], 09/30/2021 07:12:15 09/30/19 22 09/30/2021 BASIC METAB OLIC PANEL (8) BUN 11 mg/dL 8-27 Not Available [facility] ([facility]) [address] [place], [address], 09/30/2021 07:12:15 09/30/19 22 09/30/2021 BASIC METAB OLIC PANEL (8) creatinine 0.59 mg/dL 0.57-1 .00 Not Available [facility] ([facility]) [address] [place], [address], 09/30/2021 07:12:15 09/30/19 22 09/30/2021 BASIC METAB OLIC PANEL (8) eGFR 95 mL/mi n/1.7 3 >59 Not Available [facility] ([facility]) [address] [facility], [place], [address], 09/30/2021 07:12:15 09/30/19 22 09/30/2021 BASIC METAB OLIC PANEL (8) BUN/creatini ne ratio 19 12-28 Not Available [facility] ([facility]) [address] [facility], [place], [address], 09/30/2021 07:12:15 09/30/19 22 09/30/2021 BASIC METAB OLIC PANEL (8) sodium 139 mmol/ L 134-14 4 Not Available [facility] ([facility]) [address] [facility], [place], [address], 09/30/2021 07:12:15 09/30/19 22 09/30/2021 BASIC METAB OLIC PANEL (8) potassium 4.2 mmol/ L 3.5-5. 2 Not Available [facility] ([facility]) [address] [place], [address], 09/30/2021 07:12:15 09/30/19 22 09/30/2021 BASIC METAB OLIC PANEL (8) chloride 102 mmol/ L 96-106 Not Available [facility] ([facility]) [address] [place], [address], 09/30/2021 07:12:15 09/30/19 22 09/30/2021 BASIC METAB OLIC PANEL (8) carbon dioxide, total 22 mmol/ L 20-29 Not Available [facility] ([facility]) [address] [place], [address], 09/30/2021 07:12:15 09/30/19 22 09/30/2021 BASIC METAB OLIC PANEL (8) calcium 9.0 mg/dL 8.7-10 .3 Not Available [facility] ([facility]) [address] [facility] [place], [address], 09/30/2021 07:12:15 09/30/19 22 09/30/2021 LIPID PANEL cholesterol, total 291 mg/dL 100-19 9 above high normal Not Available [facility] ([facility]) [address] [facility] [place], [address], 09/30/2021 07:12:15 09/30/19 22 09/30/2021 LIPID PANEL triglyceride s 366 mg/dL 0-149 above high normal Not Available [facility] ([facility]) [address] [facility] [place], [address], 09/30/2021 07:12:15 09/30/19 22 09/30/2021 LIPID PANEL HDL cholesterol 39 mg/dL >39 below low normal Not Available [facility] ([facility]) [address] [facility] [place], [address], 09/30/2021 07:12:15 09/30/19 22 09/30/2021 LIPID PANEL VLDL cholesterol enid 72 mg/dL 5-40 above high normal Not Available [facility] ([facility]) [address] [facility] [place], [address], 09/30/2021 07:12:15 09/30/19 22 09/30/2021 LIPID PANEL LDL chol calc ([facility]) 180 mg/dL 0-99 above high normal Not Available [facility] ([facility]) [address] [facility] [place], [address], 09/30/2021 07:12:15 09/30/19 22 09/30/2021 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 6 above high normal Predi abete s: 5.7 - 6.4 Diabe blake: >6.4 Glyce viviana contr ol for adult s with diabe blake: <7.0 Not Available [facility] ([facility]) [address] [facility], [place], [address], 09/30/2021 07:12:16 09/30/19 22 09/30/2021 VITAM IN D, 25-HY DROXY vitamin D, 25-hydroxy 46.9 NG/mL 30.0-1 00.0 Vitam in D defic iency has been defin ed by the Insti tute of Medic ine and an Endoc rine Socie ty pract ice guide line as a level of serum 25-OH vitam in D less than 20 ng/mL (1,2) . The Endoc rine Socie ty went on to furth er defin e vitam in D insuf ficie ncy as a level betwe en 21 and 29 ng/mL (2). 1. IOM (Inst itute of Medic ine). 2009. Dieta ry refer ence intak es for calci um and D. Desmond velásquez DC: [facility] Press . 2. Ruth blackwood MF, Calixto horn [place], Lisa off-F errar i SPARROW, et al. Evalu ation , treat ment, and preve ntion of vitam in D defic iency : an Endoc rine Socie ty clini enid pract ice guide line. JCEM. 2010; 96(7) :1911 -30. Not Available [facility] ([facility]) [address] [facility], [place], [address], 09/30/2021 07:12:16 09/30/19 22 09/30/2021 AST (SGOT ) AST (SGOT) 12 IU/L 0-40 Not Available [facility] ([facility]) [address] [facility], [place], [address], 09/30/2021 07:12:16 09/30/19 22 09/29/2021 SUJATHA HODGE V BMP8 DEFAU LT ambig abbrev BMP8 default COMMEN T A hand- writt en panel /prof ile was recei carrington from your offic e. In accor dance with the [facility] Sujatha amezquita Test Code Polic y dated October 2002, we have compl eted your order by using the close st curre ntly or forme rly recog nized AMA panel . We have maria r scott Basic Metab olic Panel (8), Test Code #3227 [address]. If this is not the testi ng you wishe d to recei ve on this speci men, pleas e conta ct the [facility] Clien t Inqui ry/Te chnic al Servi leonie Depar tment to mike fy the test order . We appre ciate your busin ess. Not Available [facility] ([facility] [address] [place], [address], 09/30/2021 07:12:17 09/30/19 22 09/29/2021 AMBIG ABBRE V LP DEFAU LT ambig abbrev LP default COMMEN T A hand- writt en panel /prof ile was recei carrington from your offic e. In accor dance with the [facility] Sujatha amezquita Test Code Polic y dated October 2002, we have compl eted your order by using the close st curre ntly or forme rly recog nized AMA panel . We have maria r scott Lipid Panel , Test Code #3037 [address]. If this is not the testi ng you wishe d to recei ve on this speci men, pleas e conta ct the [facility] Clien t Inqui ry/Te chnic al Servi leonie Depar tment to mike fy the test order . We appre ciate your busin ess. Not Available [facility] ([facility] [address] [place], [address], 09/30/2021 07:12:17 03/23/20 22 03/24/2022 LIPID PANEL cholesterol, total 168 mg/dL 100-19 9 Not Available [facility] ([facility] [address] [place], [address], 03/24/2022 04:08:58 03/23/20 22 03/24/2022 LIPID PANEL triglyceride s 174 mg/dL 0-149 above high normal Not Available [facility] ([facility]) [address] [facility] [place], [address], 03/24/2022 04:08:58 03/23/20 22 03/24/2022 LIPID PANEL HDL cholesterol 45 mg/dL >39 Not Available [facility] ([facility]) [address] [facility] [place], [address], 03/24/2022 04:08:58 03/23/20 22 03/24/2022 LIPID PANEL VLDL cholesterol enid 30 mg/dL 5-40 Not Available [facility] ([facility]) [address] [place], [address], 03/24/2022 04:08:58 03/23/20 22 03/24/2022 LIPID PANEL LDL chol calc ([facility]) 93 mg/dL 0-99 Not Available [facility] ([facility]) [address] [place], [address], 03/24/2022 04:08:58 03/23/20 22 03/24/2022 BASIC METAB OLIC PANEL (8) glucose 145 mg/dL 70-99 above high normal Not Available [facility] ([facility]) [address] [place], [address], 03/24/2022 04:08:58 03/23/20 22 03/24/2022 BASIC METAB OLIC PANEL (8) BUN 13 mg/dL 8-27 Not Available [facility] ([facility]) [address] [place], [address], 03/24/2022 04:08:58 03/23/20 22 03/24/2022 BASIC METAB OLIC PANEL (8) creatinine 0.77 mg/dL 0.57-1 .00 Not Available [facility] ([facility]) [address] [facility], [place], [address], 03/24/2022 04:08:58 03/23/20 22 03/24/2022 BASIC METAB OLIC PANEL (8) eGFR 80 mL/mi n/1.7 3 >59 Not Available [facility] ([facility]) [address] [facility], [place], [address], 03/24/2022 04:08:58 03/23/20 22 03/24/2022 BASIC METAB OLIC PANEL (8) BUN/creatini ne ratio 17 12-28 Not Available [facility] ([facility]) [address] [facility], [place], [address], 03/24/2022 04:08:58 03/23/20 22 03/24/2022 BASIC METAB OLIC PANEL (8) sodium 141 mmol/ L 134-14 4 Not Available [facility] ([facility]) [address] [facility], [place], [address], 03/24/2022 04:08:58 03/23/20 22 03/24/2022 BASIC METAB OLIC PANEL (8) potassium 4.6 mmol/ L 3.5-5. 2 Not Available [facility] ([facility]) [address] [facility], [place], [address], 03/24/2022 04:08:58 03/23/20 22 03/24/2022 BASIC METAB OLIC PANEL (8) chloride 105 mmol/ L 96-106 Not Available [facility] ([facility]) [address] [facility] [place], [address], 03/24/2022 04:08:58 03/23/20 22 03/24/2022 BASIC METAB OLIC PANEL (8) carbon dioxide, total 24 mmol/ L 20-29 Not Available [facility] ([facility]) [address] [facility] [place], [address], 03/24/2022 04:08:58 03/23/20 22 03/24/2022 BASIC METAB OLIC PANEL (8) calcium 9.0 mg/dL 8.7-10 .3 Not Available [facility] ([facility]) [address] [facility], [place], [address], 03/24/2022 04:08:58 03/23/20 22 03/24/2022 AST (SGOT ) AST (SGOT) 20 IU/L 0-40 Not Available [facility] ([facility]) [address] [facility], [place], [address], 03/24/2022 04:08:59 03/23/2003/24/2022 HEMOG LOBIN A1C hemoglobin A1C 7.5 % 4.8-5. 6 above high normal Predi abete s: 5.7 - 6.4 Diabe blake: >6.4 Glyce viviana contr ol for adult s with diabe blake: <7.0 Not Available [facility] ([facility]) [address] [facility], [place], [address], 03/24/2022 04:08:59 10/03/19 23 10/04/2022 HEMOG LOBIN A1C hemoglobin A1C 7.6 %_of_ total _HGB <5.7 high For someo ne witho ut known diabe blake, a hemog lobin A1c value of 6.5% or great er indic ates that they may have diabe blake and this shoul d be confi rmed with a follo w-up test. For someo ne with known diabe blake, a value <7% indic ates that their diabe blake is well contr olled and a value great er than or equal to 7% indic ates subop timal contr ol. A1c targe ts shoul d be indiv idual ized based on durat ion of diabe blake, age, comor bid condi tions , and other consi derat ions. Curre ntly, no conse nsus exist s regnabila holt use of hemog lobin A1c for diagn osis of diabe blake for child melissa. Not Available [employer] [facility] [id number], [place], [address], 10/04/2022 01:10:27 10/03/19 23 10/02/2022 micro album in, urine Microalbumin 0 Not Available In-Of fice Order Internal Use Only DO Not Attach Compendium DO Not Attach Compendium, Do Not Delete/merge, [id number] 10/02/2022 12:59:42 03/29/20 23 03/30/2023 LIPID PANEL cholesterol, total 294 mg/dL 100-19 9 above high normal Not Available [facility] ([facility]) [address] [place], [address], 03/30/2023 08:26:07 03/29/20 23 03/30/2023 LIPID PANEL triglyceride s 254 mg/dL 0-149 above high normal Not Available [facility] ([facility]) [address] [place], [address], 03/30/2023 08:26:07 03/29/20 23 03/30/2023 LIPID PANEL HDL cholesterol 44 mg/dL >39 Not Available [facility] ([facility]) [address] [place], [address], 03/30/2023 08:26:07 03/29/20 23 03/30/2023 LIPID PANEL VLDL cholesterol enid 50 mg/dL 5-40 above high normal Not Available [facility] ([facility]) [address] [place], [address], 03/30/2023 08:26:07 03/29/20 23 03/30/2023 LIPID PANEL LDL chol calc ([facility]) 200 mg/dL 0-99 above high normal Not Available [facility] ([facility]) [address] [place], [address], 03/30/2023 08:26:07 03/29/20 23 03/30/2023 LIPID PANEL comment: 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 FH shoul d be suspe cted when fasti ng LDL urban stero l is above 189 mg/dL or non-H DL urban stero l is above 219 mg/dL . A famil y histo ry of high urban stero l and heart disea se in 1st degre e relat gloria ginger amin be colle cted. J Clin Lipid ol 2011; 5:133 -140 Not Available [facility] ([facility]) [address] [place], [address], 03/30/2023 08:26:07 03/29/20 23 03/30/2023 COMP. METAB OLIC PANEL (14) glucose 135 mg/dL 70-99 above high normal Not Available [facility] ([facility]) [address] [place], [address], 03/30/2023 08:26:07 03/29/20 23 03/30/2023 COMP. METAB OLIC PANEL (14) BUN 13 mg/dL 8-27 Not Available [facility] ([facility]) [address] [place], [address], 03/30/2023 08:26:07 03/29/20 23 03/30/2023 COMP. METAB OLIC PANEL (14) creatinine 0.70 mg/dL 0.57-1 .00 Not Available [facility] ([facility]) [address] [place], [address], 03/30/2023 08:26:07 03/29/20 23 03/30/2023 COMP. METAB OLIC PANEL (14) eGFR 90 mL/mi n/1.7 3 >59 Not Available [facility] ([facility]) [address] [place], [address], 03/30/2023 08:26:07 03/29/20 23 03/30/2023 COMP. METAB OLIC PANEL (14) BUN/creatini ne ratio 19 12-28 Not Available [facility] ([facility]) [address] [place], [address], 03/30/2023 08:26:07 03/29/20 23 03/30/2023 COMP. METAB OLIC PANEL (14) sodium 142 mmol/ L 134-14 4 Not Available [facility] ([facility]) [address] [place], [address], 03/30/2023 08:26:07 03/29/20 23 03/30/2023 COMP. METAB OLIC PANEL (14) potassium 4.2 mmol/ L 3.5-5. 2 Not Available [facility] ([facility]) [address] [place], [address], 03/30/2023 08:26:07 03/29/20 23 03/30/2023 COMP. METAB OLIC PANEL (14) chloride 104 mmol/ L 96-106 Not Available [facility] ([facility]) [address], [place], [address], 03/30/2023 08:26:07 03/29/20 23 03/30/2023 COMP. METAB OLIC PANEL (14) carbon dioxide, total 25 mmol/ L 20-29 Not Available [facility] ([facility]) [address] [place], [address], 03/30/2023 08:26:07 03/29/20 23 03/30/2023 COMP. METAB OLIC PANEL (14) calcium 9.2 mg/dL 8.7-10 .3 Not Available [facility] ([facility]) [address] [place], [address], 03/30/2023 08:26:07 03/29/20 23 03/30/2023 COMP. METAB OLIC PANEL (14) protein, total 6.1 g/dL 6.0-8. 5 Not Available [facility] ([facility] [address] [facility] [place], [address], 03/30/2023 08:26:07 03/29/20 23 03/30/2023 COMP. METAB OLIC PANEL (14) albumin 4.3 g/dL 3.8-4. 8 Not Available [facility] ([facility]) [address] [facility] [place], [address], 03/30/2023 08:26:07 03/29/20 23 03/30/2023 COMP. METAB OLIC PANEL (14) globulin, total 1.8 g/dL 1.5-4. 5 Not Available [facility] ([facility]) [address] [facility], [place], [address], 03/30/2023 08:26:07 03/29/20 23 03/30/2023 COMP. METAB OLIC PANEL (14) A/G ratio 2.4 1.2-2. 2 above high normal Not Available [facility] ([facility]) [address] [facility] [place], [address], 03/30/2023 08:26:07 03/29/20 23 03/30/2023 COMP. METAB OLIC PANEL (14) bilirubin, total 0.5 mg/dL 0.0-1. 2 Not Available [facility] ([facility]) [address] [facility] [place], [address], 03/30/2023 08:26:07 03/29/20 23 03/30/2023 COMP. METAB OLIC PANEL (14) alkaline phosphatase 97 IU/L 44-121 Not Available [facility] ([facility]) [address] [facility], [place], [address], 03/30/2023 08:26:07 03/29/20 23 03/30/2023 COMP. METAB OLIC PANEL (14) AST (SGOT) 15 IU/L 0-40 Not Available [facility] ([facility]) [address] [facility], [place], [address], 03/30/2023 08:26:07 03/29/20 23 03/30/2023 COMP. METAB OLIC PANEL (14) ALT (SGPT) 12 IU/L 0-32 Not Available [facility] ([facility]) [address] [facility], [place], [address], 03/30/2023 08:26:07 03/29/20 23 03/29/2023 CBC/D IFF AMBIG UOUS DEFAU LT WBC 6.8 x10e3 /uL 3.4-10 .8 Not Available [facility] ([facility]) [address] [facility], [place], [address], 03/30/2023 08:26:09 03/29/20 23 03/29/2023 CBC/D IFF AMBIG UOUS DEFAU LT RBC 5.05 x10e6 /uL 3.77-5 .28 Not Available [facility] ([facility]) [address] [facility], [place], [address], 03/30/2023 08:26:09 03/29/20 23 03/29/2023 CBC/D IFF AMBIG UOUS DEFAU LT hemoglobin 14.7 g/dL 11.1-1 5.9 Not Available [facility] ([facility]) [address] [facility], [place], [address], 03/30/2023 08:26:09 03/29/20 23 03/29/2023 CBC/D IFF AMBIG UOUS DEFAU LT hematocrit 45.0 % 34.0-4 6.6 Not Available [facility] ([facility]) [address] [facility], [place], [address], 03/30/2023 08:26:09 03/29/20 23 03/29/2023 CBC/D IFF AMBIG UOUS DEFAU LT MCV 89 fL 79-97 Not Available [facility] ([facility]) [address] [facility], [place], [address], 03/30/2023 08:26:09 03/29/20 23 03/29/2023 CBC/D IFF AMBIG UOUS DEFAU LT MCH 29.1 pg 26.6-3 3.0 Not Available [facility] ([facility]) [address] [facility], [place], [address], 03/30/2023 08:26:09 03/29/20 23 03/29/2023 CBC/D IFF AMBIG UOUS DEFAU LT MCHC 32.7 g/dL 31.5-3 5.7 Not Available [facility] ([facility]) [address] [facility], [place], [address], 03/30/2023 08:26:09 03/29/20 23 03/29/2023 CBC/D IFF AMBIG UOUS DEFAU LT RDW 12.4 % 11.7-1 5.4 Not Available [facility] ([facility]) [address] [facility], [place], [address], 03/30/2023 08:26:09 03/29/20 23 03/29/2023 CBC/D IFF AMBIG UOUS DEFAU LT platelets 231 x10e3 /uL 150-45 0 Not Available [facility] ([facility]) [address] [facility], [place], [address], 03/30/2023 08:26:09 03/29/20 23 03/29/2023 CBC/D IFF AMBIG UOUS DEFAU LT neutrophils 64 % notest ab. Not Available [facility] ([facility]) [address] [facility], [place], [address], 03/30/2023 08:26:09 03/29/20 23 03/29/2023 CBC/D IFF AMBIG UOUS DEFAU LT lymphs 24 % notest ab. Not Available [facility] ([facility]) [address] [facility], [place], [address], 03/30/2023 08:26:09 03/29/20 23 03/29/2023 CBC/D IFF AMBIG UOUS DEFAU LT monocytes 8 % notest ab. Not Available [facility] ([facility]) [address] [facility], [place], [address], 03/30/2023 08:26:09 03/29/20 23 03/29/2023 CBC/D IFF AMBIG UOUS DEFAU LT eos 3 % notest ab. Not Available [facility] ([facility]) [address] [facility], [place], [address], 03/30/2023 08:26:09 03/29/20 23 03/29/2023 CBC/D IFF AMBIG UOUS DEFAU LT basos 1 % notest ab. Not Available [facility] ([facility]) [address] [facility], [place], [address], 03/30/2023 08:26:09 03/29/20 23 03/29/2023 CBC/D IFF AMBIG UOUS DEFAU LT neutrophils (absolute) 4.4 x10e3 /uL 1.4-7. 0 Not Available [facility] ([facility]) [address] [facility], [place], [address], 03/30/2023 08:26:09 03/29/20 23 03/29/2023 CBC/D IFF AMBIG UOUS DEFAU LT lymphs (absolute) 1.6 x10e3 /uL 0.7-3. 1 Not Available [facility] ([facility]) [address] [facility], [place], [address], 03/30/2023 08:26:09 03/29/20 23 03/29/2023 CBC/D IFF AMBIG UOUS DEFAU LT monocytes(ab solute) 0.6 x10e3 /uL 0.1-0. 9 Not Available [facility] ([facility]) [address] [facility], [place], [address], 03/30/2023 08:26:09 03/29/20 23 03/29/2023 CBC/D IFF AMBIG UOUS DEFAU LT eos (absolute) 0.2 x10e3 /uL 0.0-0. 4 Not Available [facility] ([facility]) [address] [facility], [place], [address], 03/30/2023 08:26:09 03/29/20 23 03/29/2023 CBC/D IFF AMBIG UOUS DEFAU LT baso (absolute) 0.1 x10e3 /uL 0.0-0. 2 Not Available [facility] ([facility]) [address] [facility], [place], [address], 03/30/2023 08:26:09 03/29/20 23 03/29/2023 CBC/D IFF AMBIG UOUS DEFAU LT immature granulocytes 0 % notest ab. Not Available [facility] ([facility]) [address] [facility], [place], [address], 03/30/2023 08:26:09 03/29/20 23 03/29/2023 CBC/D IFF AMBIG UOUS DEFAU LT immature grans (abs) 0.0 x10e3 /uL 0.0-0. 1 Not Available [facility] ([facility]) [address] [facility], [place], [address], 03/30/2023 08:26:09 03/29/20 23 03/29/2023 CBC/D IFF AMBIG UOUS DEFAU LT hematology comments: - A hand- writt en panel /prof micky was recei carrington from your offic e. In accor dance with the [facility] Ambig uous Test Code Polic y dated October 2002, we have assig tyler CBC with Diffe yomi al/Pl mayito t, Test Code #[address]. If this is not the testi ng you wishe d to recei ve on this speci men, pleas e conta ct the [facility] Clien t Inqui ry/ Techn ical Servi leonie Depar tment to mike fy the test order . We appre ciate your busin ess. Not Available [facility] ([facility]) [address] [facility], [place], [address], 03/30/2023 08:26:09 03/29/20 23 03/30/2023 HEMOG LOBIN A1C hemoglobin A1C 8.2 % 4.8-5. 6 above high normal Predi abete s: 5.7 - 6.4 Diabe blake: >6.4 Glyce viviana contr ol for adult s with diabe blake: <7.0 Not Available [facility] ([facility]) [address] [facility], [place], [address], 03/30/2023 08:26:09 03/29/20 23 03/30/2023 VITAM IN D, 25-HY DROXY vitamin D, 25-hydroxy 47.7 NG/mL 30.0-1 00.0 Vitam in D defic iency has been defin ed by the Insti tute of Medic ine and an Endoc rine Socie ty pract ice guide line as a level of serum 25-OH vitam in D less than 20 ng/mL (1,2) . The Endoc rine Socie ty went on to furth er defin e vitam in D insuf ficie ncy as a level betwe en 21 and 29 ng/mL (2). 1. IOM (Inst itute of Medic ine). 2009. Dieta ry refer ence intak es for calci um and D. Desmond velásquez DC: [facility] . 2. Ruth blackwood MF, Calixto horn [place], Lisa off-F julianar i SPARROW, et al. Evalu ation , treat ment, and preve ntion of vitam in D defic iency : an Endoc rine Socie ty clini enid pract ice guide line. JCEM. 2010; 96(7) :1911 -30. Not Available [facility] ([facility]) [address] [facility], [place], [address], 03/30/2023 08:26:10 08/07/19 24 08/07/2023 HbA1c (hemo globi n A1c), blood HbA1c 7.6 Not Available In-Office Order Internal Use Only DO Not Attach Compendium DO Not Attach Compendium, Do Not Delete/merge, [id number] 08/06/2023 09:39:06 10/11/19 24 10/12/2023 ALBUM IN/CR EATIN INE RATIO ,URIN E creatinine, urine 78.5 mg/dL notest ab. Not Available [facility] ([facility]) [address] [place], [address], 10/12/2023 08:22:28 10/11/19 24 10/12/2023 ALBUM IN/CR EATIN INE RATIO ,URIN E albumin, urine 6.0 ug/mL notest ab. Not Available [facility] ([facility]) [address] [place], [address], 10/12/2023 08:22:28 10/11/19 24 10/12/2023 ALBUM IN/CR EATIN INE RATIO ,URIN E alb/creat ratio 8 mg/g_ creat 0-29 Cheyanne l: 0 - 29 Moder ately incre ased: 30 - 300 Sever brian incre ased: >300 Not Available [facility] ([facility]) [address] [place], [address], 10/12/2023 08:22:28 10/11/19 24 10/12/2023 COMP. METAB OLIC PANEL (14) glucose 151 mg/dL 70-99 above high normal Not Available [facility] ([facility]) [address] [place], [address], 10/12/2023 08:22:29 10/11/19 24 10/12/2023 COMP. METAB OLIC PANEL (14) BUN 15 mg/dL 8-27 Not Available [facility] ([facility]) [address] [place], [address], 10/12/2023 08:22:29 10/11/19 24 10/12/2023 COMP. METAB OLIC PANEL (14) creatinine 0.76 mg/dL 0.57-1 .00 Not Available [facility] ([facility]) [address], [place], [address], 10/12/2023 08:22:29 10/11/19 24 10/12/2023 COMP. METAB OLIC PANEL (14) eGFR 81 mL/mi n/1.7 3 >59 Not Available [facility] ([facility]) [address], [place], [address], 10/12/2023 08:22:29 10/11/19 24 10/12/2023 COMP. METAB OLIC PANEL (14) BUN/creatini ne ratio 11 04- Not Available [facility] ([facility]) [address] [facility], [place], [address], 10/12/2023 08:22:29 10/11/19 24 10/12/2023 COMP. METAB OLIC PANEL (14) sodium 139 mmol/ L 134-14 4 Not Available [facility] ([facility]) [address], [place], [address], 10/12/2023 08:22:29 10/11/19 24 10/12/2023 COMP. METAB OLIC PANEL (14) potassium 4.4 mmol/ L 3.5-5. 2 Not Available [facility] ([facility]) [address] [facility] [place], [address], 10/12/2023 08:22:29 10/11/19 24 10/12/2023 COMP. METAB OLIC PANEL (14) chloride 104 mmol/ L 96-106 Not Available [facility] ([facility]) [address] [facility] [place], [address], 10/12/2023 08:22:29 10/11/19 24 10/12/2023 COMP. METAB OLIC PANEL (14) carbon dioxide, total 22 mmol/ L 20-29 Not Available [facility] ([facility]) [address] [facility] [place], [address], 10/12/2023 08:22:29 10/11/19 24 10/12/2023 COMP. METAB OLIC PANEL (14) calcium 9.0 mg/dL 8.7-10 .3 Not Available [facility] ([facility]) [address], [place], [address], 10/12/2023 08:22:29 10/11/19 24 10/12/2023 COMP. METAB OLIC PANEL (14) protein, total 6.1 g/dL 6.0-8. 5 Not Available [facility] ([facility]) [address] [facility], [place], [address], 10/12/2023 08:22:29 10/11/19 24 10/12/2023 COMP. METAB OLIC PANEL (14) albumin 4.2 g/dL 3.8-4. 8 Not Available [facility] ([facility]) [address] [facility], [place], [address], 10/12/2023 08:22:29 10/11/19 24 10/12/2023 COMP. METAB OLIC PANEL (14) globulin, total 1.9 g/dL 1.5-4. 5 Not Available [facility] ([facility]) [address] [facility], [place], [address], 10/12/2023 08:22:29 10/11/19 24 10/12/2023 COMP. METAB OLIC PANEL (14) bilirubin, total 0.5 mg/dL 0.0-1. 2 Not Available [facility] ([facility]) [address] [facility], [place], [address], 10/12/2023 08:22:29 10/11/19 24 10/12/2023 COMP. METAB OLIC PANEL (14) alkaline phosphatase 86 IU/L 44-121 Not Available [facility] ([facility]) [address] [facility], [place], [address], 10/12/2023 08:22:29 06/20/20 24 10/12/2023 COMP. METAB OLIC PANEL (14) AST (SGOT) 14 IU/L 0-40 Not Available [facility] ([facility]) [address] [facility], [place], [address], 10/12/2023 08:22:29 10/11/19 24 10/12/2023 COMP. METAB OLIC PANEL (14) ALT (SGPT) 18 IU/L 0-32 Not Available [facility] ([facility]) [address] [facility], [place], [address], 10/12/2023 08:22:29 10/11/19 24 10/12/2023 CBC/D IFF AMBIG UOUS DEFAU LT WBC 7.0 x10e3 /uL 3.4-10 .8 Not Available [facility] ([facility]) [address] [facility], [place], [address], 10/12/2023 08:22:30 10/11/19 24 10/12/2023 CBC/D IFF AMBIG UOUS DEFAU LT RBC 5.17 x10e6 /uL 3.77-5 .28 Not Available [facility] ([facility]) [address] [facility], [place], [address], 10/12/2023 08:22:30 10/11/19 24 10/12/2023 CBC/D IFF AMBIG UOUS DEFAU LT hemoglobin 15.3 g/dL 11.1-1 5.9 Not Available [facility] ([facility]) [address] [facility], [place], [address], 10/12/2023 08:22:30 10/11/19 24 10/12/2023 CBC/D IFF AMBIG UOUS DEFAU LT hematocrit 46.1 % 34.0-4 6.6 Not Available [facility] ([facility]) [address] [facility], [place], [address], 10/12/2023 08:22:30 10/11/19 24 10/12/2023 CBC/D IFF AMBIG UOUS DEFAU LT MCV 89 fL 79-97 Not Available [facility] ([facility]) [address] [facility], [place], [address], 10/12/2023 08:22:30 10/11/19 24 10/12/2023 CBC/D IFF AMBIG UOUS DEFAU LT MCH 29.6 pg 26.6-3 3.0 Not Available [facility] ([facility]) [address] [facility], [place], [address], 10/12/2023 08:22:30 10/11/19 24 10/12/2023 CBC/D IFF AMBIG UOUS DEFAU LT MCHC 33.2 g/dL 31.5-3 5.7 Not Available [facility] ([facility]) [address] [facility], [place], [address], 10/12/2023 08:22:30 10/11/19 24 10/12/2023 CBC/D IFF AMBIG UOUS DEFAU LT RDW 12.8 % 11.7-1 5.4 Not Available [facility] ([facility]) [address] [facility], [place], [address], 10/12/2023 08:22:30 10/11/19 24 10/12/2023 CBC/D IFF AMBIG UOUS DEFAU LT platelets 240 x10e3 /uL 150-45 0 Not Available [facility] ([facility]) [address] [facility], [place], [address], 10/12/2023 08:22:30 10/11/19 24 10/12/2023 CBC/D IFF AMBIG UOUS DEFAU LT neutrophils 60 % notest ab. Not Available [facility] ([facility]) [address] [facility], [place], [address], 10/12/2023 08:22:30 10/11/19 24 10/12/2023 CBC/D IFF AMBIG UOUS DEFAU LT lymphs 27 % notest ab. Not Available [facility] ([facility]) [address] [facility], [place], [address], 10/12/2023 08:22:30 10/11/19 24 10/12/2023 CBC/D IFF AMBIG UOUS DEFAU LT monocytes 8 % notest ab. Not Available [facility] ([facility]) [address] [facility], [place], [address], 10/12/2023 08:22:30 10/11/19 24 10/12/2023 CBC/D IFF AMBIG UOUS DEFAU LT eos 4 % notest ab. Not Available [facility] ([facility]) [address] [facility], [place], [address], 10/12/2023 08:22:30 10/11/19 24 10/12/2023 CBC/D IFF AMBIG UOUS DEFAU LT basos 1 % notest ab. Not Available [facility] ([facility]) [address] [facility], [place], [address], 10/12/2023 08:22:30 10/11/19 24 10/12/2023 CBC/D IFF AMBIG UOUS DEFAU LT neutrophils (absolute) 4.1 x10e3 /uL 1.4-7. 0 Not Available [facility] ([facility]) [address] [facility], [place], [address], 10/12/2023 08:22:30 10/11/19 24 10/12/2023 CBC/D IFF AMBIG UOUS DEFAU LT lymphs (absolute) 1.9 x10e3 /uL 0.7-3. 1 Not Available [facility] ([facility]) [address] [facility], [place], [address], 10/12/2023 08:22:30 10/11/19 24 10/12/2023 CBC/D IFF AMBIG UOUS DEFAU LT monocytes(ab solute) 0.6 x10e3 /uL 0.1-0. 9 Not Available [facility] ([facility]) [address] [facility], [place], [address], 10/12/2023 08:22:30 10/11/19 24 10/12/2023 CBC/D IFF AMBIG UOUS DEFAU LT eos (absolute) 0.3 x10e3 /uL 0.0-0. 4 Not Available [facility] ([facility]) [address] [facility], [place], [address], 10/12/2023 08:22:30 10/11/19 24 10/12/2023 CBC/D IFF AMBIG UOUS DEFAU LT baso (absolute) 0.1 x10e3 /uL 0.0-0. 2 Not Available [facility] ([facility]) [address] [facility], [place], [address], 10/12/2023 08:22:30 10/11/19 24 10/12/2023 CBC/D IFF AMBIG UOUS DEFAU LT immature granulocytes 0 % notest ab. Not Available [facility] ([facility]) [address] [facility], [place], [address], 10/12/2023 08:22:30 10/11/19 24 10/12/2023 CBC/D IFF AMBIG UOUS DEFAU LT immature grans (abs) 0.0 x10e3 /uL 0.0-0. 1 Not Available [facility] ([facility]) [address] [facility], [place], [address], 10/12/2023 08:22:30 10/11/19 24 10/12/2023 CBC/D IFF AMBIG UOUS DEFAU LT hematology comments: - A hand- writt en panel /prof micky was recei carrington from your offic e. In accor dance with the [facility] Ambig uous Test Code Polic y dated October 2002, we have assig tlyer CBC with Diffe renti al/Pl atele t, Test Code #[address]. If this is not the testi ng you wishe d to recei ve on this speci men, plequynh e eliud ct the [facility] Iram t Inqui ry/ Techn ical Servi leonie Depar tment to mike fy the test order . We appre ciate your busin ess. Not Available [facility] ([facility]) [address] [facility], [place], [address], 10/12/2023 08:22:30 10/11/19 24 10/12/2023 HEMOG LOBIN A1C hemoglobin A1C 8.2 % 4.8-5. 6 above high normal Predi abete s: 5.7 - 6.4 Diabe blake: >6.4 Glyce viviana contr ol for adult s with diabe balke: <7.0 Not Available [facility] ([facility]) [address] [facility], [place], [address], 10/12/2023 08:22:31 11/25/19 22 use echoc ardio gram [facility] [address] [facility] [place] [address] Echoca rdiogr aphy Report Pat.Na me: BEVERLY LEBLANC Pat.ID : [id number]an e: 11/24/19 22 Refer. : [id number] MARY YOUNG Exam Time: 1:36:0 0 PM Study Type:E CHO WITH CARDIA C DOPPLE R COMP Height : 65in Weight : 168.65 lb BSA: 1.84 m2 Age: [birth year]76 Y Sex: FEMALE BP: 151/67 HR: 69 bpm Sonogr phr: Chad Miranda RD Pat. Stat.: Inpati ent Reason for Study: PVC's, Shortn ess of breath Proced ures: 2D, M-mode , Dopple r, Color Flow, The study qualit y is techni claude adequa te. Race: W ++++++ ++++++ ++++++ ++++++ ++++++ ++++++ SUMMAR Y: ++++++ ++++++ ++++++ ++++++ ++++++ ++++++ The left ventri cular size is normal . Estima joshua left ventri cular ejecti on fracti on is 70-75% . Mild concen tric left ventri cular hypert rophy. Left ventri cular diasto lic functi on is normal . The right ventri walker size is normal . The right ventri cular functi on is normal . The left atrial volume is normal ( less than 34 ml/M2) . Right atrial size is normal . Mild mitral regurg itatio n. Trace pulmon ic regurg itatio n. A trace of tricus pid regurg itatio n. Unable to reliab ly quanti leon pulmon liudmila systol ic pressu re, likely normal (PVAT 170mse c). ++++++ ++++++ ++++++ ++++++ ++++++ ++++++ FINDIN GS: ++++++ ++++++ ++++++ ++++++ ++++++ ++++++ LV: The left ventri cular size is normal . Estima joshua left ventri cular ejecti on fracti on is 70-75% . Mild concen tric left ventri cular hypert rophy. Left ventri cular diasto lic functi on is normal . WM: Wall motion appear s normal in all segmen ts. RV: The right ventri walker size is normal . The right ventri cular functi on is normal . IVS: No eviden ce of ventri cular septal defect . LA: The left atrial volume is normal ( less than 34 ml/M2) . RA: Right atrial size is normal . IAS: Atrial septum appear s intact . ANISH: No eviden ce of perica rdial effusi on. AO: Normal aortic root. PA: Unable to reliab ly quanti leon pulmon liudmila systol ic pressu re, likely normal (PVAT 170mse c). SVn: Inferi or vena cava is normal . AV: No eviden ce of aortic valve stenos is. No eviden ce of aortic valve regurg itatio n. The aortic valve not well visual ized. MV: Mild mitral regurg itatio n. No eviden ce of mitral stenos is. PV: No eviden ce of pulmon ic valve stenos is. Trace pulmon ic regurg itatio n. TV: A trace of tricus pid regurg itatio n. No eviden ce of tricus pid valve stenos is. ++++++ ++++++ ++++++ ++++++ ++++++ ++++++ MEASUR EMENTS : ++++++ ++++++ ++++++ ++++++ ++++++ ++++++ 2D Left Ventri walker LVIDd 4.5 cm (3.6-5 .2) LVEDV BP 62.2 ml LV EDV 59.2 ml LVESV BP 14.1 ml LV ESV 11.8 ml LV EF 80.1 % LV EDV 65.2 ml Left Ventri cula -19.3 % LV ESV 17.1 ml LV EF 73.8 % LV EF BP 77.3 % Left Ventri cula -25.7 % Left Ventri cula -22.5 % Aortic Valve Aortic Root Darren 2.78 cm Left atrial darren 3.62 cm Left Atrium Left Atrium Vol 22.7 ml/m2 LA Biplan e Left Atrium Vol 41.7 ml LA Single Plane Left Atrium maury 5.11 cm Left Atrium maury 4.62 cm Left Atrium Vol 45.4 ml Left Atrium Vol 34.9 ml LV Teichh olz Interv entric vale 1.1 cm Left Ventri walker 2.29 cm Left Ventri walker 1.16 cm Heart rate 70 heart beat/m inute Right Atrium RA sys Area 11.7 cm2 Right Ventri walker Right Ventri cul 2.39 cm RVIDd 3.17 cm MMODE Tricus pid Valve Tricus pid annul 2.5 cm DOPPLE R Pulmon liudmila Veins PVnpkV eld 56 cm/s AR-wav e veloci t 0.34 m/s Pulmon liudmila Vein 0.81 m/s PVn A Dur 0.12 s Aortic Valve Cardio vascul ar 1.89 cm LVOT/A oV ([employer]) ( 0.64 AV Antegr acosta Flow Peak Veloci ty ( 1.72 m/s Mean Veloci ty ( 1.09 m/s Veloci ty Time I 35.8 cm AV Antegr acosta Flow Simpli fied Bernou lli Gradie nt pressu 11.9 mmHg Gradie nt pressu 5.2 mmHg AV Contin uity Equati on by Veloci ty Time Integr al Aortic Valve Ar 2.07 cm2 AoV Area Index 1.12 Left Ventri walker Stroke Volume ( 74 ml Cardia c Output 5.33 liter/ minute LV Antegr acosta Flow Peak Veloci ty ( 1.1 m/s Mean Veloci ty ( 0.81 m/s Veloci ty Time I 26.4 cm LV Antegr acosta Flow Simpli fied Bernou lli Gradie nt pressu 4.8 mmHg Gradie nt pressu 2.8 mmHg Mitral Valve Mitral Valve E- 0.313 s Mean Myocar dial 8.1 cm/s Myocar dial Velo 6.5 cm/s Ratio of Mitral 12.1 Myocar dial Velo 9.6 cm/s Ratio of Mitral 15.1 Mitral Valve E 0.76 Ratio of Mitral 10.2 MV Antegr acosta Flow Mitral Valve E- 0.98 m/s Mitral Valve A- 1.29 m/s PV Antegr acosta Flow PV Vmax (Diast o 0.92 m/s PV Antegr acosta Flow Simpli fied Bernou lli PV PGmax (Systo 3.5 mmHg Tricus pid Valve Tricus pid Valve 0.65 m/s Right Atrial Pr 3 mmHg Signed 2021 06:18 AM Caron mandujano M.D. [address], [address], 03/15/2022 12:25:37 04/27/19 24 04/27/2023 (STEFFANY) ankle brach ial index * No observ ation record ed. [email or web address] [address], [place], [address], 05/17/2023 17:05:58 Result Notes None recorded. Problems Name Problem SNOMED Code Status Onset Date Resolution Date Notes Provider Name and Address Organization Details Recorded Time [place] polyp of colon 776608288 Completed 10/02/2022 Magui Cantu MD Attn: Erikjefe nolasco,[address] [facility], [place], [address] [facility] 12:24:28 Gastro-es ophageal reflux disease with esophagit is 711777394 Active Magui Cantu MD Attn: Ravin g,[address] [facility], [place], [address] [facility] 2 19:03:56 Vitamin D deficienc y 87843299 Active Magui Cantu MD Attn: Ravin gaurav,[address] [facility], [place], [address] [facility] 19:03:56 Asthma 094563622 Active Magui Cantu MD Attn: Ravin gaurav,[address] [facility], [place], [address], [place] [facility] 2 19:03:56 Pain of joint of wrist 576856466 Completed 201102/10/2012 Magui Cantu MD Attn: Ravin nolasco,[address] [facility], [place], [address] [facility] 08:20:32 Mixed hyperlipi demia 332302766 Active 2011 Magui Cantu MD Attn: Ravin g,[address] [facility], [place], [address] [facility] 08:20:06 Long-term drug therapy Active 2011 Magui Cantu MD Attn: Ravin nolasco,[address] [facility], [place], [address], [place] [facility] 12:23:06 Mixed hyperlipi demia 225692903 Completed 201103/25/2012 Magui Cantu MD Attn: Ravin g,[address] [place] [address], [place], [address], [place] [facility] 3 08:20:06 Allergic rhinitis caused by pollen 80054349 Completed 201104/25/2012 Magui Cantu MD Attn: Erikjefe nolasco,[address] [place] [address], [place], [address] [facility] 3 08:20:32 Fibromyos itis 39800543 Completed 201306/01/2013 Magui Cantu MD Attn: Erikjefe nolasco,[address] [place] [address], [place], [address], [place] [facility] 3 08:20:55 Mammograp hy abnormal 636781667 Active 2013 Magui Cantu MD Attn: Erikjefe nolasco,[address] [place] [address], [place], [address], [place] [facility] 12:23:10 Edema 786101031 Completed 201410/03/2014 Magui Cantu MD Attn: Erikjefe nolasco,[address] [place] [address], [place], [address], [place] [facility] 3 08:20:32 Alopecia 76898476 Completed 201410/02/2022 Magui Cantu MD Attn: Erikjefe nolasco,[address] [place] [address], [place], [address], [place] [facility] 3 12:58:50 Abnormal involunta ry movement 396484095 Completed 201409/04/2014 Magui Cantu MD Attn: Erikjefe nolasco,[address] [place] [address], [place], [address], [place] [facility] 3 08:20:32 Pain of multiple joints 93088656 Active 2014 Magui Cantu MD Attn: Erikjefe nolasco,[address] [place] [address], [place], [address], [place] [facility] 12:23:13 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 Magui Cantu MD Attn: Ravin gaurav,[address] [place] [address], [place], [address] [facility] 3 12:23:20 Screening for malignant neoplasm of colon Completed 201410/02/2022 Magui Cantu MD Attn: Ravin gaurav,[address] [place] [address], [place], [address] [facility] 3 12:25:19 Sialoaden itis 34783623 Completed 201410/02/2022 Magui Cantu MD Attn: Ravin gaurav,[address] [place] [address], [place], [address] [facility] 12:23:34 History of atrial fibrillat ion 266383714 Active 2020 Magui Cantu MD Attn: Ravin nolasco,[address] [place] [address], [place], [address] [facility] 2 19:03:56 Diverticu losis of colon 337657945 Completed 202010/02/2022 Magui Cantu MD Attn: Ravin gaurav,[address] [place] [address], [place], [address] [facility] 3 12:24:38 Essential hypertens ion 13027417 Active 2021 Magui Cantu MD Attn: Ravin nolasco,[address] [place] [address], [place], [address], [place] [facility] 2 19:03:56 Primary osteoporo sis 929233347 Active 2021 Magui Cantu MD Attn: Ravin nolasco,[address] [place] [address], [place], [address] [facility] 2 19:03:56 Body mass index 25-29 - overweigh t 652455569 Active 2022 Magui Cantu MD Attn: Ravin nolasco,[address] [facility], [place], [address] [facility] 12:24:09 Atrial fibrillat ion 61972314 Active 2022 Magui Cantu MD Attn: Ravin nolasco,[address] [facility], [place], [address] [facility] 3 15:59:12 Uncontrol led type 2 diabetes mellitus 001869971 Active 2022 Magui Cantu MD Attn: Ravin nolasco,[address] [facility], [place], [address] [facility] 4 09:41:58 Pain in left lower limb 995135165 Active 2022 Magui Cantu MD Attn: Ravin nolasco,[address] [facility], [place], [address] [facility] 4 09:42:30 Pain of right shoulder joint 455646210251 01918 Active 2022 Magui Cantu MD Attn: Ravin nolasco,[address] [facility], [place], [address] [facility] 4 09:42:18 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 Procedures Surgical History Date Name Laterality Status Provider Name and Address Organization Details Recorded Time 10/26/19 Eye Surgery completed Fatuma Grover MA [facility] 11/04/2018 14:48:05 Tonsillectomy completed Starr Graham [facility] 02/21/2016 15:45:57 Dilation and Curettage completed Starr Graham [facility] 02/21/2016 15:46:06 Hysterectomy completed Starr Graham [facility] 02/21/2016 16:15:43 Imaging Results None recorded. Procedure Notes None recorded. Medical Equipment None Reported. Allergies Allergen ID Allergen Name Allergen Category Reaction Reaction Severity Criticality Documentation Date Start Date Code Code System Note Provider Name and Address Organization Details Recorded Time 63168 Lipitor medicatio n Not available Not available Not available 02/21/2016 84113 5 RxNorm Starr Gladys [place], [place] [facility] 15:43:02 15242 Crestor medicatio n Not available Not available Not available 02/21/2016 50726 4 RxNorm Starr [place]ys [place] [facility] 15:43:07 13218 Elavil medicatio n Not available Not available Not available 02/21/2016 56054 RxNorm Starr [place] [facility] 15:43:15 85047 nitroglyc shruti medicatio n Not available Not available Not available 02/21/2016 4917 RxNorm Cesar Pineda [place], [place] [facility] 14:39:12 13999 Relafen medicatio n Not available Not available Not available 02/21/2016 4 RxNorm Starr [place] [facility] 15:43:28 31320 fenofibra te medicatio n myalgias (muscle pain) Not available Not available 02/21/2016 8703 RxNorm Karina Heard [place], [place] [facility] 16:46:20 15093 nitroglyc shruti medicatio n Not available Not available Not available 04/26/20162011 4917 RxNorm Sever ity: Moder ate; Comme nt: numbn ess from waist up;Al lergy Type: Adver se React ion; Not Available [facility] 7 03:49:30 90198 Pravachol medicatio n Not available Not available Not available 04/26/2016201133 3 RxNorm Sever ity: Moder ate; Comme nt: sever e ayleen rodriguez a;Sto pReas on: Incor rect infor matio n;All ergy Delet ed On: 05/01;A llerg y Type: Adver se React ion; Not Available [facility] 7 03:49:30 83918 fenofibra te micronize d medicatio n myalgias (muscle pain) moderate Not available 04/26/20162014 61927 0 RxNorm React ion: Myalg ia;Se verit y: Moder ate; Comme nt: Aller gy Type: Aller gy; Not Available [facility] 7 03:49:30 Medications Name Sig Start Date Stop Date Status Note LastModified by Organization Details LastModified Time Pravachol 40 mg tablet Take 1 tab by mouth every other day 05/01 completed RxNorm: 744139;A llow Substitu tion: True Not Available Not Available Not Available aspirin 81 mg capsule Take by oral route. 12/17 completed Not Available Not Available Not Available fluconazo le 150 mg tablet TAKE 1 TABLET BY MOUTH EVERY DAY FOR 1 DAY 10/02 completed Not Available Not Available Not Available metoprolo l succinate ER 50 mg tablet,ex tended release 24 hr TAKE 1 TABLET BY MOUTH EVERY DAY active Not Available Not Available No t Available valacyclo vir 1 gram tablet Take 1 tablet every 8 hours by oral route for 7 days. 03/09 completed Not Available Not Available Not Available Claritin 10 mg tablet Take 1 tablet every day by oral route. 08/18 completed Not Available Not Available Not Available famotidin e 40 mg tablet 06/18 completed Not Available Not Available Not Available Prilosec 20 mg capsule,d elayed release Take 1 capsule( s) by mouth daily 03/27 completed RxNorm: 450025;A llow Substitu tion: True Not Available Not Available Not Available peg-elect rolyte solution 420 gram oral solution 03/09 completed Not Available Not Available Not Available aspirin 81 mg tablet,de layed release Take 1 tablet every day by oral route. 09/14 completed Not Available Not Available Not Available carvedilo l 3.125 mg tablet Take 0.5 tablets twice a day by oral route. 02/20 completed Not Available Not Available Not Available pravastat in 80 mg tablet Take 1 tablet(s ) by mouth at bedtime 11/16 completed RxNorm: 602974;A llow Substitu tion: True Not Available Not Available Not Available lorazepam 0.5 mg tablet Take 2 tablets 3 times a day by oral route as needed. 06/18 completed Not Available Not Available Not Available Flagyl 500 mg tablet Take 1 tablet every 8 hours by oral route. 01/18 completed Not Available Not Available Not Available glipizide ER 2.5 mg tablet, extended release 24 hr Take 1 tablet every day by oral route in the morning. 2023 active Not Available Not Available Not Avai lable erythromy sammi 5 mg/gram (0.5 %) eye ointment 12/17 completed Not Available Not Available Not Available Cipro 500 mg tablet Take 1 tablet every 12 hours by oral route. 01/18 completed Not Available Not Available Not Available lisinopri l 10 mg tablet TAKE 1 TABLET BY MOUTH EVERY DAY active Not Available Not Available No t Available Pravachol 20 mg tablet Take 1 tablet by mouth every other day 04/30 completed RxNorm: 151041;A llow Substitu tion: True Not Available Not Available Not Available promethaz ine 25 mg tablet 03/09 completed Not Available Not Available Not Available niacin 500 mg tablet 05/01 completed RxNorm: 916322;A llow Substitu tion: True Not Available Not Available Not Available aspirin 81 mg chewable tablet Chew 1 tablet(s ) by mouth [facility] 09/14 completed RxNorm: 382524;A llow Substitu tion: True Not Available Not Available Not Available metoprolo l succinate ER 25 mg tablet,ex tended release 24 hr TAKE 1 TABLET (25 MG TOTAL) BY MOUTH DAILY. 10/02 completed Not Available Not Available Not Available ergocalci ferol (vitamin D2) 1,250 mcg (50,000 unit) capsule Take 1 capsule every week by oral route. 03/09 completed Not Available Not Available Not Available Pepcid 20 mg tablet Take 1 tablet twice a day by oral route. 09/29 completed Not Available Not Available Not Available albuterol sulfate HFA 90 mcg/actua tion aerosol inhaler Inhale 2 puffs every 4-6 hours by inhalati on route as needed. active Not Available Not Available No t Available Lipitor 10 mg tablet Take 1/2 tab by mouth three times weekly 03/27 completed RxNorm: 800926;A llow Substitu tion: True Not Available Not Available Not Available metformin ER 500 mg tablet,ex tended release 24 hr 11/04 completed Not Available Not Available Not Available neomycin 3.5 mg/g-poly myxin B 10,000 unit/g-de xameth 0.1 % eye oint 11/04 completed Not Available Not Available Not Available ezetimibe 10 mg tablet TAKE 1 TABLET BY MOUTH EVERY DAY active Not Available Not Available No t Available Premarin 0.625 mg/gram vaginal cream Apply 0.5 grams vaginall y at night for 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 Not Available Not Available No t Available rosuvasta tin 5 mg tablet TAKE 1 TABLET BY MOUTH EVERY DAY 2023 active Not Available Not Available Not Avai lable Crestor 10 mg tablet active Not Available Not Available Not Available DILT-XR 120 mg capsule, extended release 12/17 completed Not Available Not Available Not Available Albuterol Sulfate HFA 90 mcg/Actua tion aerosol inhaler Inhale 1 to 2 puff(s) by mouth q 4 to 6 hr prn 04/05 completed RxNorm: 999115;A llow Substitu tion: True Not Available Not Available Not Available Fenofibra te 11/16 completed Allow Substitu tion: True Not Available Not Available Not Available hydrocodo ne 5 mg-acetam inophen 300 mg tablet 11/04 completed Not Available Not Available Not Available metformin ER 500 mg 24 hr tablet,ex tended release (gastric retention ) Take 1 tablet every day by oral route. 12/25 completed Not Available Not Available Not Available fenofibra te nanocryst allized 145 mg tablet Take 1 tablet(s ) by mouth daily 04/07 completed RxNorm: 654521;A llow Substitu tion: True Not Available Not Available Not Available fenofibra te 54 mg tablet Take 1 tablet every day by oral route. 08/18 completed Not Available Not Available Not Available Probiotic 03/16 completed Not Available Not Available Not Available OneTouch Verio test strips Use to check blood sugar once daily and as needed active Not Available Not Available No t Available icosapent ethyl 1 gram capsule Take 1 capsule (1 g total) by mouth 2 (two) times daily. Take with food. 08/05 completed CARDIOLO GY Not Available Not Available Not Available Lotemax 0.5 % eye gel drops 11/04 completed Not Available Not Available Not Available Eliquis 5 mg tablet TAKE 1 TABLET BY MOUTH TWICE A DAY 03/09 completed Not Available Not Available Not Available Farxiga 10 mg tablet TAKE 1 TABLET BY MOUTH EVERY OTHER DAY 2023 active Not Available Not Available Not Avai lable Farxiga 5 mg tablet Take 1 tablet every other day by oral route for 90 days. active Not Available Not Available No t Available Soolantra 1 % topical cream 03/09 completed Not Available Not Available Not Available doxycycli ne hyclate 50 mg tablet,de layed release TAKE 1 TABLET BY MOUTH EVERY DAY 08/05 completed DERMATOL OGY Not Available Not Available Not Available Praluent Pen 75 mg/mL subcutane ous pen injector 03/15 completed Not Available Not Available Not Available OneTouch Verio Flex Meter Use to check blood sugar as directed active Not Available Not Available No t Available OneTouch Ultra Blue Test Strip TESTS ONCE DAILY 04/09 completed Not Available Not Available Not Available OneTouch Delica Plus Lancet 33 gauge Use to check blood sugar once daily and as directed active Not Available Not Available No t Available BinaxNOW COVID-19 Ag Self Test kit TEST DIRECTED TODAY 10/02 completed Not Available Not Available Not Available Vitals Date Recorded Body height Body mass index (BMI) Body weight Oxygen saturation Oxygen saturation in Arterial blood by Pulse oximetry Heart rate Body temperature Systolic And Diastolic Provider Name and Address Organization Details Last Updated DateTime 4 160.02 cm 28.9 kg/m2 74967.5 6 g 96 % 96 % 76 /min 97.2 [degF] 157/76 mm[Hg] Keren Leblanc MA [facility] 4 10:14:22 Date Recorded Body height Body mass index (BMI) Body weight Body temperature Oxygen saturation Oxygen saturation in Arterial blood by Pulse oximetry Heart rate Systolic And Diastolic Provider Name and Address Organization Details Last Updated DateTime 2 160.02 cm 30.5 kg/m2 40493.9 9 g 97.6 [degF] 96 % 96 % 81 /min 132/62 mm[Hg] Rebekah Kline MA [facility] 2 11:42:29 Date Recorded Body height Body mass index (BMI) Body weight Body temperature Oxygen saturation Oxygen saturation in Arterial blood by Pulse oximetry Heart rate Systolic And Diastolic Provider Name and Address Organization Details Last Updated DateTime 3 160.02 cm 29.8 kg/m2 46294.2 2 g 97.6 [degF] 96 % 96 % 71 /min 144/77 mm[Hg] Hammad Hart MA [facility] 3 12:09:00 Date Recorded Body height Body mass index (BMI) Body weight Body temperature Oxygen saturation Oxygen saturation in Arterial blood by Pulse oximetry Heart rate Systolic And Diastolic Provider Name and Address Organization Details Last Updated DateTime 2 160.02 cm 29.1 kg/m2 05225.1 5 g 97.7 [degF] 96 % 96 % 85 /min 144/70 mm[Hg] Keren Leblanc MA [facility] 2 10:06:21 Date Recorded Systolic And Diastolic Provider Name and Address Organization Details Last Updated DateTime 03/15/2022 134/72 mm[Hg] Karina Heard [facility] 03/15/2022 10:43:30 Date Recorded Body height Body mass index (BMI) Body weight Body temperature Heart rate Oxygen saturation Oxygen saturation in Arterial blood by Pulse oximetry Systolic And Diastolic Provider Name and Address Organization Details Last Updated DateTime 3 160.02 cm 29.9 kg/m2 48543.1 1 g 97.3 [degF] 71 /min 96 % 96 % 133/70 mm[Hg] Melissa Michael MA [facility] 3 10:14:52 Social History Question Answer Notes LastModified by Organizat ion Details LastModified Time Tobacco Smoking Status Never Smoker Starr Graham [facility], [place] - [facility] 02/21/2016 16:15:03 Are You Blind Or Do You Have Difficulty Seeing? No Information n ot available 03/09/2021 What Is Your Level Of Caffeine Consumption? Moderate Information not available 03/09/2021 In The 14 Days Before Symptom Onset, Have You Had Close Contact With A Laboratory-confirm ed COVID-19 While That Case Was Ill? No Information n ot available 03/09/2021 In The 14 Days Before Symptom Onset, Have You Had Close Contact With A Person Who Is Under Investigation For COVID-19 While That Person Was Ill? No Information not available 03/09/2021 Have You Been To An Area Known To Be High Risk For COVID-19? No Information not available 03/09/2021 Are You Deaf Or Do You Have Serious Difficulty Hearing? No Information not available 03/09/2021 What Type Of Diet Are You Following? REGULAR Information n ot available 03/09/2021 Are There Any Guns Present In Your Home? No Information not available 03/09/2021 What Was The Date Of Your Most Recent Tobacco Screening? 08/06/2023 Information not available 08/06/2023 What Is Your Relationship Status? Information not available 03/09/2021 Do You Use Your Seat Belt Or Car Seat Routinely? Yes Information not available 03/09/2021 Do You Have Smoke And Carbon Monoxide Detectors In Your Home? Yes Information not available 03/09/2021 Are You Passively Exposed To Smoke? No Information no t available 03/09/2021 Do You Use Sunscreen Routinely? Yes Information not available 03/09/2021 Has Tobacco Cessation Counseling Been Provided? No Information not available 03/15/2022 Sex: Female Functional Status Question Answer Note LastModified by Organizat ion Details LastModified Time Do you use any illicit or recreational drugs? No Information not available 03/09/2021 Do you or have you ever used any other forms of tobacco or nicotine? No Information not available 03/15/2022 What is your level of alcohol consumption? None Information not available 03/09/2021 Are you currently employed? No Information not available 03/09/2021 Are you able to care for yourself? Yes Information n ot available 03/09/2021 What is your exercise level? Moderate lsheldonma Information not available 09/07/2021 Mental Status Question Answer Note LastModified by Organization D etails LastModified Time Do you feel stressed (tense, restless, nervous, or anxious, or unable to sleep at night)? [id number] Information not available 03/09/2021 Family History Relationship Description Onset Age of this Age Resolved Age Notes LastModified by Organization Details LastModified Time Mother Cerebrovascu lar accident charrisma Not available 16:13:20 Mother Malignant tumor of colon charrisma Not available 2015 16:13:26 Mother Diabetes mellitus charrisma Not available 2015 16:13:46 Mother Heart disease charrisma Not available 2015 16:13:56 Mother Hypercholest erolemia charrisma Not available 2015 16:14:11 Mother Kidney disease charrisma Not available 2015 16:14:21 Mother Osteoporosis charrisma Not avai lable 02/21/2016 16:14:39 Father Coronary arterioscler osis charrisma Not available 2015 16:13:33 Father Diabetes mellitus charrisma Not available 2015 16:13:46 Father Heart disease charrisma Not available 2015 16:13:56 Father Hypertensive disorder charrisma Not available 2015 16:14:02 Father Chronic obstructive pulmonary disease charrisma Not available 2015 16:14:59 Sister Diabetes mellitus charrisma Not available 2015 16:13:46 Sister Hypercholest erolemia charrisma Not available 2015 16:14:11 Sister Migraine charrisma Not availabl e 02/21/2016 16:14:29 Sister Osteoporosis charrisma Not avai lable 02/21/2016 16:14:39 Sister Malignant neoplasm of ovary thoskinsma Not available 09/14 14:02:01 Sister Cerebrovascu lar accident 55 Not available 14:48:23 Brother Chronic obstructive pulmonary disease charrisma Not available 2015 16:14:59 Brother Chronic obstructive pulmonary disease charrisma Not available 2015 16:14:59 Brother Malignant neoplasm of lung thoskinsma Not available 09/14 14:01:44 Maternal Grandmother Cerebrovascu lar accident thoskinsma Not available 14:01:22 Paternal Grandmother Malignant neoplasm of ovary thoskinsma Not available 09/14 14:02:01 Medical History Condition Response Diabetes Y Muscle, Joint, or Bone Problems Y Acid Reflux (GERD) Y Stroke Allergies Y High Cholesterol Y Headaches Y Osteoporosis Y Gynecological History Statement/Question Response Menses Monthly N Obstetrics History GPAL:G 2 P 2 0 0 2 Type Value Full Term 2 Living 2 Total 2 Immunizations Vaccine Type Date Status Note Provider Nam e and Address Organization Details Recorded Time Tdap 8 completed Karina He[place] null, [place] - [facility] 11/04/2018 15:47:10 Influenza, split virus, quadrivalent, preservative 1 completed Karina [place] [facility] 03/09/2021 13:00:35 COVID-19, mRNA, LNP-S, PF, 100 mcg/0.5mL dose or 50 mcg/0.25mL dose 1 completed Karina [place], [place] - [facility] 03/09/2021 13:02:32 COVID-19, mRNA, LNP-S, PF, 100 mcg/0.5mL dose or 50 mcg/0.25mL dose 1 completed Karina [place] [facility] 03/09/2021 13:03:20 COVID-19, mRNA, LNP-S, PF, 100 mcg/0.5mL dose or 50 mcg/0.25mL dose 1 completed Karina [place], [place] [facility] 03/09/2021 13:04:08 SARS-COV-2 (COVID-19) vaccine, UNSPECIFIED 2 completed Karina [place], [place] [facility] 03/15/2022 11:01:43 Tdap 7 completed Starr [place] [facility] 02/21/2016 15:44:33 pneumococcal polysaccharide PPV23 1 completed Starr [place] [facility] 02/21/2016 15:44:47 Hep A, adult 7 completed Starr [place] [facility] 02/21/2016 15:45:00 typhoid, ViCPs 7 completed Not Available [facility] 04/26/2016 05:30:51 Past Encounters Encounter ID Performer Location Encounter Start Date Encounter Closed Date Diagnosis/Indication Diagnosis SNOMED-CT Code Diagnosis ICD10 Code Diagnosis Note [id number] Karina Heard MD [facility] [address] [place] [address] 02/21/2016 15:46:34 02/24/2016 11:13:08 Type 2 diabetes mellitus 39664485 E11.9 Mixed hyperlipidemia 267 806419 E78.2 continue zetia [id number] Karina Heard MD [facility] [address] [place] [address] 08/18/2016 11:12:41 08/18/2016 14:37:50 Painful rectal bleeding 103113615 K62.5 Left lower quadrant pain 080071717 R10.32 Fever 625647261 R50.9 [id number] Karina Heard MD [facility] [address] [place] [address] 09/14/2016 14:29:55 09/14/2016 16:11:35 Type 2 diabetes mellitus 43271609 E11.9 Diverticulitis 346854092 K57.92 Painless r ectal bleeding 582743916 K62.5 Dysphagia 59363677 R13.1 0 [id number] Karina Heard MD [facility] [address] [place] [address] 01/18/2017 14:09:49 01/18/2017 16:00:18 Diverticulosis of colon without diverticulitis 637294670 K57.30 Type 2 darren betes mellitus without complication 055756393 E11.9 [id number] Jackson Vee MD [facility] [address] [place] [address] 07/18/2017 11:40:34 07/18/2017 14:19:33 Family history of aneurysm of blood vessel of brain 4549353265 1381083 Z82.49 Hypertensive disorder 38 352563 I10 Type 2 darren betes mellitus without complication 251093061 E11.9 Headache 45819271 R51 If any recurrance of intensity or dizziness, nausea vomiting, go to ER Blurring o f visual image 225384406 H53.8 Diplopia 64861123 H53.2 Migraine 97411072 G43.90 9 [id number] Karina Heard MD [facility] [address] [place] [address] 12/25/2017 10:09:09 12/26/2017 11:01:43 Type 2 diabetes mellitus without complication 050748725 E11.9 Generalize d anxiety disorder 34730107 F41.1 Mixed hyperlipidemia 267 412968 E78.2 continue zetia Injury of finger 7554216 8 S69.80XD [id number] Karina Heard MD [facility] [address] [place] [address] 01/03/2018 10:38:37 01/04/2018 10:54:37 Hyperlipidemia 76016786 E78.2 Type 2 darren betes mellitus without complication 255537264 E11.9 Injury of finger 1849207 8 S69.80XD [id number] Karina Heard MD [facility] [address] [place] [address] 11/04/2018 14:16:49 11/04/2018 16:05:04 Type 2 diabetes mellitus without complication 021401267 E11.9 Hyperlipidemia 40979097 E78.2 Benign ess ential hypertension 4929535 I10 Asthma 880709516 J45.90 9 Pneumococc al vaccination declined 441358952 Z28.21 [id number] Karina Heard MD [facility] [address] [place] [address] 12/17/2018 11:16:17 12/17/2018 15:54:47 Chest pain 91466725 R07.9 Atrial fibrillation 4943 6004 I48.91 Esophageal dysphagia 408 24653 R13.19 [id number] Karina Heard MD [facility] [address] [place] [address] 03/17/2019 14:23:13 03/17/2019 15:45:25 Generalized anxiety disorder 01084693 F41.1 Hyperlipidemia 15653590 E78.2 Mixed anxi ety and depressive disorder 575806712 F41.8 Type 2 darren betes mellitus without complication 936201806 E11.9 [id number] Karina Heard MD [facility] [address] [place] [address] 06/18/2019 10:30:59 06/18/2019 13:55:41 Type 2 diabetes mellitus without complication 679938607 E11.9 Atrial fibrillation 4943 6004 I48.91 Vitamin D deficiency 347 63960 E55.9 Mixed hyperlipidemia 267 319126 E78.2 continue zetia [id number] Karina Heard MD [facility] [address] [place] [address] 09/30/2019 14:37:37 09/30/2019 16:56:14 Herpes zoster 6091584 B02.9 [id number] Karina Heard MD [facility] [address] [place] [address] 10/06/2019 12:55:04 10/06/2019 14:09:27 Herpes zoster 7694100 B02.9 discussed zoster, offered gabapentin , but she feels she's doing ok with the pain and discomfort , will finish this second week of antiviral and will only call if continues with symptoms. [id number] Karina Heard MD [facility] [address] [place] [address] 03/09/2021 11:31:33 03/10/2021 12:06:07 Type 2 diabetes mellitus without complication 816480577 E11.9 Asthma 034543649 J45.90 9 Hyperlipidemia 68838830 E78.2 Diverticul osis of colon 647452870 K57.30 Body mass index 30+ - obesity 303834747 Z68.30 [id number] Karina Heard MD [facility] [address] [place] [address] 09/07/2021 11:04:46 09/07/2021 15:00:05 Type 2 diabetes mellitus without complication 257102086 E11.9 Hyperlipidemia 47941832 E78.2 History of atrial fibrillation 455434957 Z86.79 Body mass index 30+ - obesity 588657696 Z68.30 Essential hypertension 02021625 I10 Vitamin D deficiency 347 83936 E55.9 [id number] Karina Heard MD [facility] [address] [place] [address] 03/15/2022 09:38:08 03/15/2022 12:58:06 Essential hypertension 62829034 I10 Type 2 darren betes mellitus without complication 858498907 E11.9 Hyperlipidemia 66127591 E78.2 Candidal vulvovaginitis 49716049 B37.32 Body mass index 25-29 - overweight 414962061 Z68.29 [id number] Magui Cantu MD [facility] [address] [place] [address] 10/02/2022 10:35:48 10/02/2022 17:31:56 Adult health examination 667262375 Z00.00 Health Risk Assessment collected and reviewedDi scussed importance of annual wellness examinatio nEncourage d routine exercise as well as the importance of balance training to improve stability and prevent fallsRevie wed alcohol and tobacco use and related concernsDi scussed current medication s, including risk of medication s, adherence and affordabil ity, as well as possible drug-to-dr ug and disease-to -drug interactio nsReviewed social support, ability to complete activities of daily living, as well as advance directives Performed depression and memory evaluation s as documented Discussed cancer screenings with considerat ion to life expectancy , potential harm, and patient preference Reviewed recommende d vaccinatio ns including annual influenza, pneumococc al (65+ year-old), and herpes zoster (50+ year-old) Hyperlipidemia 82410413 E78.5 # Hyperlipid emia - Last lipid panel < 1 year ago - ACC/AHA CV risk > 7.5% - Repeat prior to next visit - Continue with current management without changes. - Focus on a dietlow in saturated fats(https ://www.[facility] fhealth.or g/educatio n/paulolin es-for-a-l ow-cholest jerilyn-low-s aturated-f at-diet),b lood pressure control,sm oking cessation( http://salud tyes.org/) anddaily exerciseto reduce your risk ofheart disease and stroke. Type 2 darren betes mellitus without complication 791548934 E11.9 # Diabetes Mellitus type 2 Uncontrol led with last check - await hemoglobin A1c today Continue current management Patient is on ACEi, statin. Lipid panel checked < year ago Microalbu min checked > year ago, ordered Continue/ Increase dietary efforts and physical activity. Routine diabetic retinopath y screening: up-to-date Essential hypertension 53726888 I10 # HTN- Nearly controlled - Continue current medication s. No change in management - Encouraged routine blood pressure checksat home, targetless than 140/90- DiscussedD SUSAN diet(https ://www.nhl bi.nih.gov /files/doc s/public/h eart/dash_ brief.pdf) anddietary sodium restrictio ns- Continue/I ncrease dietary efforts and physical activity Atrial fibrillation 4943 6004 I48.91 # Atrial fibrillati on, paroxysmal Stable.Rat e controlled .Continue anticoagul ation.No changes in management .Follows with cardiology Body mass index 25-29 - overweight 735901126 Z68.29 Focus on a healthy diet, avoid added salt, and prjfpd5010 calories or less daily. Exercise as tolerated, targeting3 0-60 minutes of exercise daily, at least 5 days per week Long-term drug therapy 115644862 Z79.899 Checking routine labwork for ongoing long-term medication use. [id number] Magui Cantu MD [facility] [address] [place] [address] 04/09/2023 09:47:18 04/10/2023 13:54:01 Essential hypertension 95179911 I10 # HTN- Controlled - Continue current medication s. No change in management - Encouraged routine blood pressure checksat home, targetless than 140/90- DiscussedD SUSAN diet(https ://www.nhl bi.nih.gov /files/doc s/public/h eart/dash_ brief.pdf) anddietary sodium restrictio ns- Continue/I ncrease dietary efforts and physical activity Asthma 055534464 J45.90 9 # Asthma Well-contr olled Maintain current treatment step Atrial fibrillation 4943 6004 I48.91 # Atrial fibrillati on, paroxysmal Stable.Rat e controlled .Declines anticoagul ation secondary to previous GI bleeds.No changes in management .Follows with cardiology Body mass index 25-29 - overweight 109968547 Z68.29 Focus on a healthy diet, avoid added salt, and cvelxx1981 calories or less daily. Exercise as tolerated, targeting3 0-60 minutes of exercise daily, at least 5 days per week Long-term drug therapy 571884775 Z79.899 Checking routine labwork for ongoing long-term medication use. Mixed hyperlipidemia 267 047951 E78.2 # Hyperlipid emia - Last lipid panel < 1 year ago - ACC/AHA CV risk > 7.5% - Repeat per cardiology - Continue with current management without changes. - Focus on a dietlow in saturated fats(https ://www.[facility] fhealth.or g/educatio n/guidelin es-for-a-l ow-cholest jerilyn-low-s aturated-f at-diet),b lood pressure control,sm oking cessation( http://salud tyes.org/) anddaily exerciseto reduce your risk ofheart disease and stroke. Pain of mu ltiple joints 35087889 M25.50 - stable, but for right shoulder Vitamin D deficiency 347 66076 E55.9 - check < 1 year ago, at target- repeat in 6 months Primary osteoporosis 276 182725 M81.0 - vitamin D, calcium Uncontroll ed type 2 diabetes mellitus 862700951 E11.65 # Diabetes Mellitus type 2 Uncontrol led - from 7.6 Adjusting management : Increasing dapagliflo zin to 10 mg Patient is on ACEi, statin. Lipid panel checked < year ago Microalbu min checked < year ago Continue/ Increase dietary efforts and physical activity. Routine diabetic retinopath y screening: up-to-date Pain in le ft lower limb 488021928 M79.605 I99.8 Pain of ri ght shoulder joint 5103761585 9520467 M25.099 [id number] Magui Cantu MD [facility] [address] [place] [address] 08/06/2023 10:03:26 08/07/2023 10:55:21 Uncontrolled type 2 diabetes mellitus 518649696 E11.65 # Diabetes Mellitus type 2Uncontrol led 7.6 from 8.3Continu e current management - continue alternatin g doses of 10 mg and 5 mg dapagliflo zinPatient is on ACEi, ezetimibe (statin-in tolerant)L ipid panel checked < year agoMicroal bumin checked < year agoContinu e/Increase dietary efforts and physical activity.R outine diabetic retinopath y screening: up-to-date Body mass index 25-29 - overweight 716648973 Z68.29 Focus on a healthy diet, avoid added salt, and ltpsig8430 calories or less daily. Exercise as tolerated, targeting3 0-60 minutes of exercise daily, at least 5 days per week Long-term drug therapy 505457976 Z79.899 Checking routine labwork for ongoing long-term medication use. Intermitte nt claudication due to atherosclerosis of artery of limb 450851535 I70.219 Health Concerns Section Related Observation LastModified by Organization Detai ls LastModified Time None Recorded Concern Status LastModified by Organization Details LastModified Time None Recorded Advance Directives Directive None Recorded Payers Insurance Date Sequence Insurance Name Policy Number Policy Concepcion Covered Member ID Concepcion Member ID Guarantor Name 08/03/2023 1 [place] Deepa Borrego [id number] Deepa Chaneyridluz maria 01/03/2018 1 [place] Deepa Borrego [id number] Deepa Borrego 12/14/2023 2 [facility] [id number] Ezio Borrego [id number] Deepa Chaneyridluz maria 10/20/2016 3 [place] [facility] Deepa Borrego [id number] Deepa Borrego 12/14/2023 [place] [facility] Deepa Borrego [id number] Deepa Borrego Notes Date Note Type Note Provider Name and Address Organization Details Recorded Time 2 text/html Diabetes F/UReported bypatient.Review finger sticks:does not check sugars, she cannot get the machine she has to work Labs:last A1C result: 8.0 (06/08/21); pt stated that she has not been taking crestor or metoprolol due to A1c being elevated and would like A1C rechecked Context:seeing eye doctor regularly; checking feet regularly;not taking aspirin daily Associated Symptoms:no weight gain; no weight loss; no dizziness; no sweats; no confusion; no increased thirst; no increased appetite; no increased urination; no blurred vision; no numbness of feet; no calluses on feet;headachesHyperlipide miaReported bypatient.Type of hyperlipidemia:hypertrigl yceridemia Duration:chronic Current Therapy:currently taking: (rosuvastatin 5mg , ezetimibe 10mg); last cholesterol level: (207); last LDL level: (126); last triglyceride level: (221); last HDL level: (42); 06/08/21, patient stated that she has not been taking cholesterol medication or metoprolol due to A1C being high Compliance:exercises Complications:no coronary artery disease; no peripheral artery disease; no cardiovascular disease Risk Factors:diabetes;hyperten mayra would like a referral to a different um specialist JACY Ram [facility] 09/07/2021 13:35:23 2 text/html Diabetes F/UReported bypatient.Review finger sticks:doesnt check sugars Labs:last A1C result: 7.9 (09/29/2021) Context:seeing eye doctor regularly; checking feet regularly; not missing doses of medications;not taking aspirin daily;side effects from medications(yeast infection due to farxiga); doesnt check sugars to know the range Associated Symptoms:no weight gain; no weight loss; no sweats; no confusion; no increased thirst; no increased appetite; no increased urination; no blurred vision; no numbness of feet; no calluses on feet;dizziness;headachesH yperlipidemiaReported bypatient.Type of hyperlipidemia:hypertrigl yceridemia Duration:chronic Current Therapy:currently taking: (rosuvastatin 5mg , ezetimibe 10mg); last cholesterol level: (291); last LDL level: (180); last triglyceride level: (366); last HDL level: (39); as of 09/29/2021 Compliance:exercises Complications:no coronary artery disease; no peripheral artery disease; no cardiovascular disease Risk Factors:diabetes;hyperten sionHypertension F/UReported bypatient.Associated Symptoms:no lightheadedness; no chest pain; no shortness of breath; no edema; no calf pain with exertion;dizziness;palpit ations Lifestyle:regular exercise; exercises 7 times/week; exercises for 60 minutes/day; limiting/avoiding salt Medications:taking medications as directed; no side effects from medication; checks blood pressure at home, range: Went over medications with pt, pt states that she doesn't need any refills on today's visit. Karina davenport [place] - SIF 03/15/2022 12:27:13 3 text/html MAW 2Reported bypatient.Diet and Nutrition:healthy diet Fracture Risk:no sudden unexplained fractures;history of fractures(years ago) Concentration and Memory:no decreased concentrating ability; no memory lapses or loss; does not forget words Speech/Motor difficulties:no speech difficulties; no difficulty expressing formulated concepts; no difficulty with fine manipulative tasks; no difficulty writing/copying; no slowed reaction time; does not knock things over when trying to pick them up Hearing:no loss of hearing Vision:worsening(wears glasses- had a vision test last week) Activities of Daily Living:able to bathe with limited or no assistance; able to contol urination and bowels; able to dress with limited or no assistance; able to feed self with limited or no assistance; able to get out of chair or bed with limited or no assistance; able to groom with limited or no assistance; able to toilet with limited or no assistance Instrumental Activities of Daily Living:able to do house work with limited or no assistance; able to grocery shop with limited or no assistance; able to manage medications with limited or no assistance; able to manage money with limited or no assistance; able to prepare meals with limited or no assistance; able to use the phone with limited or no assistance Falls Risk Assessment:no frequent falls while walking; no fall in the past year; no fall since last visit; no dizziness/vertigo Home Safety:no unsafe abigail hazzards; no unsafe stairs; working smoke/CO detectors; practicing 'safer sex'; no fire arms; has hand bars in the bathroom/shower; good lighting in the home ANNUAL MEDICARE WELLNESS VISIT Cardiovascular disease: Per 2020 USPSTF Blood Pressure Screening Guidelines (Grade A) and JNC-8Blood pressure screen/control performed today. See below Vaccines:Per CDC Guidelines - seasonal influenza: encouraged - Td/Tdap: up to date - VZV: encouraged - Pneumococcal: - incomplete - declines for now - COVID: up to date Screenings: - Hyperlipidemia: in the past year - 10-year ASCVD calculated risk score - - Cervical Cancer: Not applicable - Breast Cancer: [facility] - April 2022 - Colorectal Cancer: Colonoscopy [id number] [place] [address] -5 yrfu. -did complete with Dr Dominguez - family history - Lung Cancer: not indicated - STDs: not indicated - Hepatitis C: not indicated - AAA: not indicated - Prostate Cancer: not indicated - Osteoporosis: up to date - Depression Screening (PHQ-9): declined Functional ability/safety: Hearing: normal Activities of daily life: independent No impairment for bed mobility, transfers, ambulation, dressing, eating, or toileting and personal hygiene Fall risk: no falls in the past year except slipping on wet surface Home safety: feels safe at home Patient does not smoke Alcohol: rare/guilty about drinking habits No drug use Diet: regular Exercise: regular Current concerns:med renewal Atrial fibrillation - On chronic anticoagulation - And rate control medications - Consistent use of medications - No side effects - Denies palpitations, chest pain, dyspnea. Hypertension - On lisinopril, metoprolol - Consistent use of medications - Does not report any headaches, blurry vision, dizziness, chest pain, shortness of breath, or palpitations - Following a low salt diet. - Exercising Hyperlipidemia - Consistent use of lipid-lowering medication(s) - No side effects - Following a low-cholesterol diet - Last lipid panel < 1 year ago Diabetes type 2 Last hemoglobin A1c: 1Dec22 - 7.5 Last foot exam: DUEgh Last eye exam: last week - Quantum Last urine microalbumin: 2019 Last lipid panel: 1Dec22 On SGLT2 inhibitor Consistent use of medications. On ACEi. No hypoglycemic events Checking blood glucose at home - irregularly - running a little high No complaints of foot pain or paresthesias Diabetic foot exam < 1 year ago Diabetic eye exam < 1 year ago Following a low carb diet Exercising -Bean Sprout Grower/Nursing note reviewed.- Magui Cantu MD Attn: Accounting,[address] [facility], [place], [address], [facility] - SIF 10/02/2022 13:08:09 3 text/html 6-MONTH FOLLOW-UP VISIT/SUBJECTIVE: Deepa presents for routine 6-month follow-up of atrial fibrillation, hypertension, hyperlipidemia, type 2 diabetes mellitus, and asthma, among other chronic conditions Last routine follow-up office visit: [id number] labwork: 7D Patient reports consistent use of medications, without side effects or intolerances. Current concerns:- left leg - walks 10k steps-- improved with stopping ezetimibe and rosuvastatin-- pain and weakness after walking 1000 steps-- ongoing x 1 month-- improves if taking baby aspirin-- would like to consider vascular study- right shoulder pain-- decrease range of motion with pain-- can't sleep on it-- no known injury-- restricting motion, occasional acetaminophen Health maintenance:- Immunizations due: COVID booster, vzv, RSV, pneumococcal, flu - declines- Colorectal cancer screening: family history - med - db contrast barium enema - Well-woman exam: not applicable- Mammography: - DEXA: up to date per patient- LDCT: not applicable Atrial fibrillation- Not on chronic anticoagulation- And rate control medications- Consistent use of medications- No side effects- Denies palpitations, chest pain, dyspnea.- follows with cardiology regularly Hypertension- On lisinopril, metoprolol- Consistent use of medications- Does not report any headaches, blurry vision, dizziness, chest pain, shortness of breath, or palpitations- Following a low salt diet.- Exercising Hyperlipidemia- Not taking ezetimibe or rosuvastatin, taking icosapent, but unaffordable- No side effects- Following a low-cholesterol diet- Last lipid panel < 1 year ago Diabetes type 2Last hemoglobin A1c: 7Dec23 - 8.2Last foot exam: [id number] eye exam: last week - QuantumLast urine microalbumin: 17Skc03Hfss lipid panel: 7Dec23 On SGLT2 inhibitorConsistent use of medications. On ACEi. No hypoglycemic eventsChecking blood glucose at homeNo complaints of foot pain or paresthesiasDiabetic foot exam < 1 year agoDiabetic eye exam < 1 year agoFollowing a low carb dietExercising Asthma- On albuterol only- SOB/wheezing/use of SUMEET < 2x/week- Night symptoms < 2/month- No activity limits- No hospitalizations for exacerbations during the last year -Bean Sprout Grower/Nursing note reviewed.- Magui Cantu MD Attn: Accounting,[address] [facility], [place], [address], [facility] - SI 04/12/2023 19:16:18 4 text/html Diabetes F/UReported bypatient.Review finger sticks:wouldnt say she checks daily but checks occasional Labs:last A1C result: 8.2 (as of 03/29/2023) Context:seeing eye doctor regularly; checking feet regularly; not missing doses of medications; no side effects from medications;not taking aspirin daily(comes and goes but was never told to do so) Associated Symptoms:no weight gain; no weight loss; no dizziness; no sweats; no confusion; no increased thirst; no increased appetite; no increased urination; no blurred vision; no numbness of feet; no calluses on feet;headaches DIABETES FOLLOW-UP VISIT/SUBJECTIVE: Deepa presents for routine follow-up of uncontrolled type 2 diabetes mellitus Last routine follow-up office visit: 72Qas08Jwlp labwork: 7Dec23 Patient reports consistent use of medications, without side effects or intolerances. Current concerns:- has seen Dr. Bradley for shoulder- never received call regarding vascular study referral Health maintenance:Immunizations due: COVID booster, vzv, RSV, pneumococcal - declinesColorectal cancer screening: family history - Ahmed - dbl contrast barium enema [id number] exam: not applicableMammography: [id number]: up to date per patientLDCT: not applicable Diabetes type 2Last hemoglobin A1c:7Dec23 - 8.2Last foot exam: 05Kin15Idvo eye exam:QuantumLast urine microalbumin: 05Gis90Nuwi lipid panel: 7Dec23 On SGLT2 inhibitor - has been alternating 5 and 10 mg doses - vertigoConsistent use of medications. On ACEi. No hypoglycemic eventsChecking blood glucose at home - < 150, generally 128-130No complaints of foot pain or paresthesiasDiabetic foot exam < 1 year agoDiabetic eye exam < 1 year agoFollowing a low carb dietExercising-Bean Sprout Grower/Nursing note reviewed.- Magui Cantu MD Attn: Accounting,[address] [facility], [place], [address], [facility] - SI 08/06/2023 10:49:41 OBGyn Episode No OBEpisode recorded.
--- OUTSIDE RECORDS SUMMARY | 2024-11-07 10:31 | XMS_ITS | Encounter Summary ---
Author Organization [facility] Address [address] [place] [address] Care Team Providers Care Fire Marshal Refinery Name Role Phone Roe Balderas MD Primary Care Provider [phone] Gaby Locke MD Primary Care Provider + Encounter Details Date Type Department Care Team (Late st Contact Info) Description 03/24/2022 [facility] [address] Laurent Chaparro MA Social History Tobacco Use Types Packs/Day Years Used Date Smoking Tobacco: Never Smokeless Tobacco: Never Alcohol Use Standard Drinks/Week Comments Not Currently 0 (1 standard drink = 0.6 oz pur e alcohol) Comments Unknown Sex and Gender Information Value Date Recorded Sex Assigned at Female 10/21/2024 6:40 AM CDT Legal Sex Female 4:05 PM CDT Gender Identity Female 10/29/2024 12:14 PM CDT Sexual Orientation Not on file documented as of this encounter Plan of Treatment Upcoming Encounters Date Type Department Care Team (Late st Contact Info) Description 02/09/2025 7:50 AM CDT Office Visit [facility] Family Medicine - [place] [address] [place] [address] [phone] Gaby Locke MD [address] [place] [phone] 04/30/2025 3:00 PM [facility] Hospital Encounter [facility] One Day Services [address] [facility] [place] [address] Jamel Mendoza MD [address] [facility] [address] [place] [address] 04/30/2025 3:00 PM REVISING CLERK - 04/30/2025 3:30 PM REVISING CLERK Surgery [facility] Endo/GI [address] [facility] [place] [address] Jamel Mendoza MD [address] [facility] [address] [place] [address] EGD 10/26/2025 9:45 AM CDT Office Visit [facility] on [facility] [place] [address] Caron Ordaz MD Three [facility] [address] [place] [address] Scheduled Procedures Name Priority Associated Diagnoses Date/Ti me EGD Dysphagia, unspecified type Chao's esophagus without dysplasia 04/30/2025 3:00 PM REVISING CLERK documented as of this encounter Procedures Procedure Name Priority Date/Time Associated Diagnosis Comments HEMOGLOBIN, GLYCOSYLATED Routine 03/29/2023 COMPREHENSIVE METABOLIC PANEL Routine 03/29/2023 LIPID PANEL Routine 03/29/2023 CBC, MANUAL DIFF Routine 03/29/2023 VITAMIN D, 25 OH Routine 03/29/2023 LIPID PANEL Routine 10/09/2022 THYROID STIM HORMONE TSH Routine 10/09/2022 AST/SGOT Routine 03/23/2022 BASIC METABOLIC PANEL Routine 03/23/2022 LIPID PANEL Routine 03/23/2022 HEMOGLOBIN, GLYCOSYLATED Routine 03/23/2022 documented in this encounter Results * VITAMIN D, 25 OH (03/29/2023) VITAMIN D 25 HYDROXY S/P/B 47.7 03/29/2023 Default History Genericprovider LABORATORY Final Result * COMPREHENSIVE METABOLIC PANEL (03/29/2023) Pathologist [facility] SODIUM S/P/B 142 GLUCOSE 135 mg/dL AST 15 BUN 13 CREATININE S/P/B 0.70 0.5 - 1.0 CALCIUM S/P/B 9.2 POTASSIUM S/P/B 4.2 CHLORIDE S/P/B 104 ALT 12 GFR ESTIMATE 90 Default History Genericprovider LABORATORY Edited Result - Final * LIPID PANEL (03/29/2023) Pathologist [facility] CHOLESTEROL 294 TRIGLYCERIDES 254 HDL 44 LDL (CALCULATED) 200 Default History Genericprovider LABORATORY Edited Result - Final * CBC, MANUAL DIFF (03/29/2023) Pathologist [facility] WBC 6.8 HGB 14.7 HCT 45.0 PLT 231 Default History Genericprovider LABORATORY Edited Result - Final * HEMOGLOBIN, GLYCOSYLATED (03/29/2023) Pathologist [facility] HGB A1C 8.2 % Default History Genericprovider LABORATORY Edited Result - Final * LIPID PANEL (10/09/2022) Pathologist [facility] CHOLESTEROL 191 HDL 42 TRIGLYCERIDES 502 10/09/2022 us Default History Genericprovider LABORATORY Edited Result - Final * THYROID STIM HORMONE, TSH (10/09/2022) Pathologist [facility] TSH 0.952 10/09/2022 Default History Genericprovider LABORATORY Final Result * AST/SGOT (03/23/2022) Pathologist [facility] AST 20 03/23/2022 Default History Genericprovider LABORATORY Final Result * HEMOGLOBIN, GLYCOSYLATED (03/23/2022) Pathologist [facility] HGB A1C 7.5 % 03/23/2022 us Default History Genericprovider LABORATORY Final Result * LIPID PANEL (03/23/2022) Pathologist [facility] CHOLESTEROL 168 HDL 45 TRIGLYCERIDES 174 LDL (CALCULATED) 93 03/23/2022 Default History Genericprovider LABORATORY Final Result * BASIC METABOLIC PANEL (03/23/2022) Pathologist [facility] SODIUM S/P/B 141 POTASSIUM S/P/B 4.6 CO2 24 CHLORIDE S/P/B 105 GLUCOSE 145 mg/dL CALCIUM S/P/B 9.0 BUN 13 CREATININE S/P/B 0.77 0.5 - 1.0 EGFR NON-AFR. AMER. 80 <=90 03/23/2022 Default History Genericprovider LABORATORY Edited Result - Final documented in this encounter Visit Diagnoses Not on filedocumented in this encounter Additional Health Concerns Infection Onset Date Last Indicated Resolved Time COVID-19 Rule Out 04/24/2024 04/24/2024 04/24/2024 9:50 AM REVISING CLERK COVID-19 Confirmed 04/24/2024 04/24/2024 12:32 AM REVISING CLERK documented as of this encounter Care Teams Fire Marshal Refinery Relationship Specialty Start Date End Date Roe Balderas MD [address] [address] PCP - General INTERNAL MEDICINE 03/23/22 02/06/24 Gaby Locke MD [address] [place] [address] PCP - General FAMILY PRACTICE 02/07/24 documented as of this encounter
--- OUTSIDE RECORDS SUMMARY | 2024-11-07 10:31 | XMS_ITS | Encounter Summary ---
Author Organization [facility] Address [address] [place] [address] Phone Care Team Providers Care Thermoforming Operator Name Role Phone Berenice Garrison CNM Unavailable [phone] No, Physician Primary Care Provider [phone] Encounter Details Date Type Department Care Team (Latest Contact Info) Description 09/18/2018 Orders Only [facility] Scanning, Provider Social History Tobacco Use Types Packs/Day Years Used Date Smoking Tobacco: Never Smokeless Tobacco: Never Comments Unknown Sex and Gender Information Value Date Recorded Sex Assigned at Not on file Legal Sex Female 4:12 AM HOG WORKER Gender Identity Not on file Sexual Orientation Not on file documented as of this encounter Plan of Treatment Not on file documented as of this encounter Procedures Procedure Name Priority Date/Time Associated Diagnosis Comments SCAN - LABS 09/18/2018 documented in this encounter Results * SCAN - LABS (09/18/2018) us Provider Scanning Final Result documented in this encounter Visit Diagnoses Not on filedocumented in this encounter Care Teams Thermoforming Operator Relationship Specialty Start Date End Date No, Physician PCP - General 05/01/22 Berenice Garrison, CN Termite Inspector Obstetrics and Gynecology 08/24/21 documented as of this encounter
[2024-11-07 10:39] VITALS: BP 145/69; PULSE 79; RESP 16; TEMP 36.8; O2SAT 98
--- NOTE | 2024-11-07 10:57 | ED.GENADULT ---
HPI - General Adult General Chief complaint: Eye Problems Stated complaint: eye swelling Time Seen by Provider: 11/07/24 10:57 Source: patient, RN notes reviewed and old records reviewed Mode of arrival: ambulatory Limitations: no limitations History of Present Illness HPI narrative: 79-year-old female presents to the [facility] with several concerns. Reports she started with a rash to her forehead 2 weeks ago. Was originally told that it was shingles, prescribed gabapentin, Valacyclovir on October 29. On prescribed prednisone on October 30 and November 05. Was prescribed hydroxyzine November 05. Reports that he she has seen her primary care provider 3 times, eye Dr. 1 time. Redness, swelling to the left eye. Rashes bilateral antecubital areas, left waist, under left breast Denies any blurry vision or change in vision. Onset (ago): week(s) (2) Related Data Home Medications ?Medication ?Instructions ?Recorded ?Confirmed ?Last Taken ?Type dapagliflozin propanediol 5 mg 5 mg PO DAILY 05/04/23 05/04/23 Unknown History tablet (Farxiga) lisinopril 10 mg tablet 10 mg PO DAILY 05/04/23 05/04/23 Unknown History metoprolol succinate 25 mg 25 mg PO DAILY 05/04/23 05/04/23 Unknown History tablet,extended release 24 hr hkjdjyip-sfv-xjpno acid 400 1 tablet PO DAILY 05/04/23 05/04/23 Unknown History mcg-coQ10 250 mcg-lycop 375 mcg-lut tablet vit C 250 mg-vit E 200 unit-zinc 1 tablet PO ONCE 05/04/23 05/04/23 Unknown History 12.5 mg-copper 1 ix-nne-jtybyg tablet (ICaps AREDS2 (copper citrate)) Allergies Allergy/AdvReac Type Severity Reaction Status Date / Time amitriptyline (From Elavil) AdvReac Mild Other Verified 11/07/24 10:40 Review of Systems Review of Systems: All systems reviewed & are unremarkable except as noted in HPI and below Constitutional: Constitutional: Reports no additional constitutional complaints ENT: Reports as per HPI Cardiovascular: Cardiovascular: Reports no additional cardiovascular complaints, Denies chest pain and Denies dyspnea Respiratory: Respiratory: Reports no additional respiratory complaints, Denies chest congestion, Denies cough and Denies dyspnea Musculoskeletal: Musculoskeletal: Reports no additional musculoskeletal complaints Integumentary/Breasts: Skin/Breast: Reports as per [facility] Past Medical History Medical History (Updated 11/07/24 @ 19:46 by Deedee Zhou APRN) History of essential hypertension Diabetes Afib Family History Family History Father Cancer Diabetes mellitus Hypertension Heart disease Mother Cancer Diabetes mellitus Hypertension Heart disease Cerebrovascular accident AA (aortic aneurysm) Sibling Alcoholism Cancer Diabetes mellitus Grandparent Heart disease Grandparent Alcoholism Cancer Social History Social History Smoking status: Unknown if ever smoked Alcohol intake: never Substance use: never Substance use type: does not use Do You Feel Safe in your Home?: Yes Lack of Transportation: No Lack of Food: Never True Current Housing: I Have Housing Concerned About Future Housing: No Difficulty Paying Gas/Electric Bills: No Difficulty Paying for Meds: No Currently Unemployed: No Education: Master's Degree or Higher Difficulty w/ Childcare or Family Care: No Comments At the time of my signature, I reviewed and agree with the nursing past medical, surgical, social, and family history. There is no relevant family history pertinent to the patient complaint. Exam Const: General: cooperative, healthy appearing, comfortable, no acute distress, well developed, alert and well nourished Nutritional Appearance: well nourished Orientation/consciousness: patient oriented x3 Limitations: no limitations HENMT: Head: normal to inspection Ears: hearing grossly normal bilaterally, external ears normal, TM's normal bilaterally, EAC's normal, mastoids normal and no periauricular adenopathy Mouth: Yes Normal oral and palatal mucosa present, Yes lip normal, Yes tongue normal and Yes moist mucous membranes Eyes: General: appearance normal, both eyes and all related structures Alignment and Position: alignment normal Periorbital: periorbital findings abnormal left periorbital swelling, periorbital tenderness and periorbital erythema Conjunctivae: conjunctivae normal Sclera: sclerae normal Neck: Neck: normal visual inspection, full ROM, no lymphadenopathy and no meningeal signs Chest: Chest palpation & inspection: normal inspection of the chest Resp: Effort & Inspection: normal respiratory effort and able to speak in complete sentences Auscultation: clear to auscultation bilaterally, no crackles, no rales, no rhonchi and no wheezes Cardio: Rate: regular rate Skin: General skin exam: erythema Rashes: rashes noted Other: No swelling, light pink rash under left breast consistent with fungal infection Left waist, pink, no swelling, no increased warmth Bilateral antecubital areas, raised, plaque-like, red, dry areas Neuro: General: patient oriented x3, gait normal, moves all extremities and no meningeal signs Cognition (Neuro): normal cognition Speech: normal speech Gait exam (Neuro): Normal gait present Extrem: General: normal to inspection, full ROM, capillary refill normal and normal gait Psych: Appearance: grossly normal and well kempt Mental Status: mental status grossly normal Speech and movement: Normal speech and movement present and Clear speech present Affect: normal affect Attitude: cooperative Course Course Level of Care: Express Care Visit Vital Signs Vital signs: Vital Signs Temperature 98.2 F 11/07/24 10:39 Pulse Rate 79 11/07/24 10:39 Respiratory Rate 16 11/07/24 10:39 Blood Pressure 145/69 H 11/07/24 10:39 Pulse Oximetry 98 11/07/24 10:39 Oxygen Delivery Room Air 11/07/24 10:39 Temperature 98.2 F 11/07/24 10:39 Pulse Rate 79 11/07/24 10:39 Respiratory Rate 16 11/07/24 10:39 Blood Pressure 145/69 H 11/07/24 10:39 Pulse Oximetry 98 11/07/24 10:39 Oxygen Delivery Room Air 11/07/24 10:39 Reviewed Medical Decision Making MDM Narrative Medical decision making narrative: Patient sitting comfortably in exam room. Nontoxic, vitals stable. Patient in no acute distress Patient with multiple or rashes noted, around I concern for cellulitic changes, will treat with antibiotic Under breast and waist area consistent with fungal infection, will prescribe 1 Diflucan and a topical Patient with bilateral antecubital rashes inflammatory Patient currently on prednisone Patient appropriate for outpatient treatment, encouraged patient to follow-up with primary care provider as soon as possible. Discharge instructions reviewed with patient, as well as provided in writing per nursing staff. The instructions also include specific and strict return/GO TO THE ER as well as f/u information. All questions have been answered, and the patient deny any further questions with discharge and discharge plan. Some parts of this dictation were generated by voice recognition software and may contain typographical and/or grammatical inaccuracies. Differential Diagnosis Differential Diagnosis: Rash, yeast infection, cellulitis Medical Records Medical records reviewed: Yes I reviewed the external patient's medical records. Vital Signs Vital Signs: Vital Signs Temperature 98.2 F 11/07/24 10:39 Pulse Rate 79 11/07/24 10:39 Respiratory Rate 16 11/07/24 10:39 Blood Pressure 145/69 H 11/07/24 10:39 Pulse Oximetry 98 11/07/24 10:39 Oxygen Delivery Room Air 11/07/24 10:39 Temperature 98.2 F 11/07/24 10:39 Pulse Rate 79 11/07/24 10:39 Respiratory Rate 16 11/07/24 10:39 Blood Pressure 145/69 H 11/07/24 10:39 Pulse Oximetry 98 11/07/24 10:39 Oxygen Delivery Room Air 11/07/24 10:39 Reviewed Lab Data Lab results reviewed: Yes I reviewed the patient's lab results. Labs: Reviewed Critical Care Time Critical Care Time Critical Care Time: No Discharge Plan Discharge Clinical Impression: Yeast dermatitis, Cellulitis, Urticaria Patient Disposition: Home Condition: Stable Instructions: Antibiotic Form, Urticaria (ED), Cellulitis (ED), Skin Yeast Infection (ED) Additional Instructions: The most important part of your care is follow up with Primary care provider. Take Zyrtec every day Take Pepcid 20mg daily for 7 days Continue taking home medications as prescribed Avoid hot showers, Take cool showers. Hot showers will make rashes worse Apply cool compresses every 2-3 hours for 15 minutes Go to the ER for new or worsening symptoms such as shortness of breath. Patient Language: Uzbek Prescriptions: New fluconazole 150 mg tablet 150 mg PO ONCE Qty: 1 0RF Rx Instructions: as a single dose clotrimazole 1 % cream 1 applic topical BID 14 Days Qty: 45 0RF Rx Instructions: Under breast and arms amoxicillin-pot clavulanate 875-125 mg tablet 1 tablet PO Q12H Qty: 14 0RF No Action metoprolol succinate 25 mg tablet extended release 24 hr 25 mg PO DAILY lisinopril 10 mg tablet 10 mg PO DAILY Farxiga 5 mg tablet 5 mg PO DAILY [id number]-[id number]-clyqxmn-irtcpf 400-250-375 mcg tablet 1 tablet PO DAILY ICaps AREDS2 (copper citrate) 250 mg-200 unit -12.5 mg-1 mg tablet 1 tablet PO ONCE Follow-up/Referrals: Chucky,Gaby Levy MD [Primary Care Provider] - 1 Week ([facility] care follow up ) Time of Disposition: 11:28
== END 2024-11-07 11:35 | disposition home or self-care (01) ==
PROVIDERS: Emergency Provider Nurse Practitioner; PCP Student in an Organized Health Care Education/Training Program
DX: B37.2 Candidiasis of skin and nail (principal); L03.114 Cellulitis of left upper limb; L03.113 Cellulitis of right upper limb; L50.9 Urticaria, unspecified; I10 Essential (primary) hypertension; E11.9 Type 2 diabetes mellitus without complications; I48.91 Unspecified atrial fibrillation
CPT/HCPCS: 99213; G0463